=== PATIENT | male | born 1990 | race Caucasian/White ===

== ENCOUNTER 2018-07-23 00:16 | Emergency (ER) | payer SELFPAY ==
[2018-07-23 00:19] VITALS: BP 136/90; PULSE 78; RESP 16; TEMP 37.5; O2SAT 97; BMI 31.1
--- NOTE | 2018-07-23 00:50 | NURSING ---
PATIENT REFUSED IV INSERTION D/T PREVIOUS INFILTRATION.
[2018-07-23 00:53] LABS: Absolute Lymphocyte Count 2.84 X10^3/ul (0.83-4.51); Basophil# 0.03 X10^3/uL; Basophil% 0.3 % (0-1); Eosinophil# 0.19 X10^3/uL; Eosinophils% 1.9 % (0-5); Hematocrit 43.1 % (40-54); Hemoglobin 15.2 g/dl (13.0-16.5); Lymphocyte # 2.84 X10^3/ul (4.0); Lymphocyte % 28.2 % (19-41); Mean Corp Hgb Conc 35.3 g/gl (32-36); Mean Corpuscular Hgb 31.1 pg (27.0-32.0); Mean Corpuscular Volume 88.1 fL (80-94); Mean Platelet Vol. 10.6 fl (6.2-12.0); Monocyte# 1.03 X10^3/uL; Monocyte% 10.2 % (0-10); Neutrophil # 5.95 X10^3/uL (2.7-7.7); Neutrophil % 59.2 % (47-70); Platelet Count 198 K/mm3 (150-450); RBC Distribution Width CV 13.3 % (11.6-14.6); RBC Distribution Width SD 42.9 fl (35.1-43.9); Red Blood Count 4.89 M/mm3 (4.6-6.2); White Blood Count 10.1 K/mm3 (4.4-11.0)
[2018-07-23 00:54] LABS: POSITIVE COUNT NO; POSITIVE DIFFERENTIAL NO; POSITIVE MORPHOLOGY NO
[2018-07-23] MEDS: Dicyclomine 20 MG/2 ML Vial IM (00:55)
[2018-07-23] MEDS: Ondansetron 8 MG Tablet 4 MG PO (00:55)
[2018-07-23 01:14] LABS: ALB/GLOB Ratio 0.9 RATIO (0.9-2.4); AST(SGOT) 13 U/L (15-37); Alanine Aminotransfer ALT/SGPT 23 U/L (16-61); Albumin, Serum 3.7 g/dL (3.2-5.0); Alkaline Phosphatase 55 U/L (45-117); Anion Gap 8 (5-15); BUN 6 mg/dL (7-18); BUN/Creat Ratio 8.3 RATIO (10-20); Calcium,Total 8.6 mg/dL (8.5-10.1); Chloride 108 mmol/L (98-107); Creatinine, Serum 0.72 mg/dL (0.70-1.30); EST Glomerular Filtration Rate 137 mL/min (>60); Est Glom Filt Rate - Afr Amer 166 mL/min (>60); Estimated Creatinine Clearance 142.81 ml/min; Glucose 97 mg/dL (74-106); Lipase 155 U/L (73-393); Potassium 3.2 mmol/L (3.5-5.1); Protein, Total 7.7 g/dL (6.4-8.2); Sodium Level 141 mmol/L (136-145)
--- NOTE | 2018-07-23 01:22 | ED.VISSUMM ---
- ER Visit Summary Date of Service: 07/23/18 Chief Complaint: [Abdominal pain, vomiting, and diarrhea] History of Present Illness: The patient is a 28 M [presents the emergency department with a week and a half history of vomiting, diarrhea, abdominal pain. Patient denies any fevers. Patient denies any sick contacts. Patient states that he has been thrown up about 4 times a day and having 2-3 watery stools. Patient denies any blood in his stool or vomitus. Patient denies recent travel or antibiotic usage.] Physical Examination: [HEENT-PERRLA, EOMI. Cranial nerves II through XII grossly intact. TMs clear. Mucous membranes moist. No adenopathy. Cardiovascular-regular rate and rhythm without murmur or ectopy Lungs-clear to auscultation, chest wall stable without crepitus or subcu emphysema Abdomen-hyperactive bowel sounds. Patient has some mild diffuse tenderness. There is no rebound, rigidity, or perineal signs. Extremities-intact ?4, normal range of motion, normal pulses, atraumatic] Test Results: [CBC with differential obtained showed a white blood cell count of 10.1, hemoglobin 15, hematocrit 43, platelets 198. Chemistry showed a sodium 141, potassium 3.2, chloride 108, CO2 25, BUN 6, creatinine 0.72. LFTs were normal. Lipase was 155.] Emergency Department Course and Treatment: [Patient refused IV fluids. Patient was given potassium chloride 40 mEq p.o. Patient was given Zofran 4 mg and Bentyl 20 mg.] Treatment Plan: [Patient will be given a prescription for Zofran and Bentyl. Patient advised to follow-up with primary care physician 5-7 days.] Disposition: [Discharged home in stable condition] Impression: [Viral gastroenteritis] This note was generated with [employer] dictation software. It may contain incorrect words, spelling, and punctuation that were not noted in review of the chart prior to signing ED Disposition - Plan for ED Patient: Chief Complaint: Abd Pain Referrals: Robert Steinberg III, MD [Primary Care Provider] -
--- NOTE | 2018-07-23 01:24 | ED.DEP ---
ED Disposition - Plan for ED Patient: Chief Complaint: Abd Pain Instructions: ED Gastroenteritis Viral Prescriptions: Ondansetron [Zofran Odt] 4 mg PO Q8H PRN PRN #10 tab PRN Reason: Nausea Dicyclomine HCl [Bentyl] 20 mg PO TIDAC #20 cap Referrals: Robert Steinberg III, MD [Primary Care Provider] - 5-7 Days
[2018-07-23 01:42] VITALS: BP 145/96; PULSE 78; RESP 15; O2SAT 98
== END 2018-07-23 01:42 | disposition home or self-care (01) ==
LOC: ED 00:53
PROVIDERS: Emergency Provider Emergency Medicine; Family Provider Family Medicine; PCP Family Medicine
DX: A08.4 Viral intestinal infection, unspecified (principal); Z72.0 Tobacco use
CPT/HCPCS: 80053; 83690; 85025; 96372; 99284

== ENCOUNTER 2018-08-19 14:48 | Emergency (ER) | payer MEDICAID, SELFPAY ==
[2018-08-19 14:49] VITALS: BP 134/73; PULSE 95; RESP 18; TEMP 36.6; O2SAT 98; BMI 31.5
--- NOTE | 2018-08-19 16:19 | ED.VISSUMM ---
- ER Visit Summary Date of Service: 08/19/18 Chief Complaint: Abscess on tailbone History of Present Illness: The patient is a 28 M who presents for complaint of abscess on his tailbone for 2 days. Patient states he has had so much pain he cannot sleep well, lay down, and it hurts when he walks. He denies fever or any other constitutional symptoms. He denies any prior history of an abscess in this area or any other abscesses. He is tried Tylenol and warm compresses without relief. He denies any medical problems. Physical Examination: Vital signs: afebrile, hemodynamically stable, no hypoxia on room air General: well nourished, well developed, in no distress, groggy Skin: warm, dry, no rash, no pallor Respiratory: No increased work of breathing Abdominal: Abdomen is soft, nontender with normoactive bowel sounds, no guarding or rebound, no masses, 2 cm erythematous indurated area with 2 central pustules left lateral of the superior gluteal fold. No swelling or abscess noted at the area of a pilonidal cyst. No vesicles noted. Surrounding skin tender but no fluctuance or induration noted other than the focal 2 cm area. MSK: Moves all extremities, no deformities, normal strength Neuro: Awake and alert, oriented ?4. No facial droop, sensation and motor function intact and symmetric Test Results: [] Emergency Department Course and Treatment: Patient's level of pain seems out of proportion to the size of the small area of cellulitis/possible abscess. Because of the location, it may be a lateralized pilonidal cyst. The area was cleansed with Shur-Clens, and a field block was performed with 1% lidocaine. After achieving good anesthesia, a stab incision was made in the pustule without return of pus. This is not a pilonidal cyst but a small area of cellulitis. Patient continued to complain of severe pain in the area, again that seemed out of proportion to the lesion. The area all around the lesion was soft and nontender, thus there was no evidence of a deep tracking into the deeper tissues. Patient was prescribed antibiotics and is to use [id number] pain medications as needed. He was given an IM injection of Toradol prior to discharge. Discharge home. Treatment Plan: [] Disposition: [] Impression: Skin cellulitis of left upper buttock This note was generated with [employer] dictation software. It may contain incorrect words, spelling, and punctuation that were not noted in review of the chart prior to signing ED Disposition - Plan for ED Patient: Disposition: Home or Assisted Living Chief Complaint: Abscess Instructions: ED Infec Skin Cellulitis Prescriptions: Clindamycin [Cleocin] 300 mg PO TID 7 Days #42 cap Referrals: Robert Steinberg III, MD [Primary Care Provider] - 3-5 Days if not improving Additional Instructions: Take the antibiotic as prescribed for the entire 7 days even if you feel better before the antibiotic is finished. You may use [id number] pain medication of your choice as needed for pain. If you have any worsening of your condition or any new concerning symptoms, please return immediately to the emergency department for another evaluation.
--- NOTE | 2018-08-19 17:06 | ED.DEP ---
ED Disposition - Plan for ED Patient: Disposition: Home or Assisted Living Chief Complaint: Abscess Instructions: ED Infec Skin Cellulitis Prescriptions: Clindamycin [Cleocin] 300 mg PO TID 7 Days #42 cap Referrals: Robert Steinberg III, MD [Primary Care Provider] - 3-5 Days if not improving Additional Instructions: Take the antibiotic as prescribed for the entire 7 days even if you feel better before the antibiotic is finished. You may use [id number] pain medication of your choice as needed for pain. If you have any worsening of your condition or any new concerning symptoms, please return immediately to the emergency department for another evaluation.
[2018-08-19] MEDS: Ketorolac 30 MG/ML Syringe IM (17:17)
--- NOTE | 2018-08-19 17:20 | ED.RN ---
pt states he was upset that we didn't treat his pain appropriately. attempted to communicate with pt about dissatisfaction, pt states this hospital is a fucking joke and i will never come here again
== END 2018-08-19 18:13 | disposition home or self-care (01) ==
PROVIDERS: Emergency Provider Emergency Medicine; Family Provider Family Medicine; PCP Family Medicine
DX: L03.317 Cellulitis of buttock (principal); B96.89 Other specified bacterial agents as the cause of diseases classified elsewhere
CPT/HCPCS: 10060; 96372; 99282

== ENCOUNTER 2018-09-10 10:41 | Emergency (ER) | payer MEDICAID, SELFPAY ==
[2018-09-10 10:42] VITALS: BP 164/86; PULSE 103; RESP 18; TEMP 36.9; O2SAT 98; BMI 30.1
--- NOTE | 2018-09-10 11:59 | ED.DCSUM_ITS ---
- ER Visit Summary Date of Service: 09/10/18 Chief Complaint: Left axillary abscess History of Present Illness: The patient is a 28 M who states for the past week has had a lump in his left axilla. It has become increasingly painful. He has a history of abscesses but never one in his axilla. He notes painful range of motion at the shoulder joint. No fevers. Physical Examination: Afebrile vital signs stable There is a left axillary abscess without significant erythema. Bedside ultrasound demonstrates fluid collection. Emergency Department Course and Treatment: Wound was locally anesthetized using 1% lidocaine. A cross incision was made with expression of pus. Wound was probed for loculations and iodoform packing placed. Patient will need to follow-up in 3 days for packing removal. Patient requested a work note and I told him I would write one he also requested some pain medication I wrote for ibuprofen. He informed staff that I can shove it up my ass. He also stated that the hospital should burn to the ground. Impression: 1. Left axillary abscess 2. Incision and drainage by physician This note was generated with [employer] dictation software. It may contain incorrect words, spelling, and punctuation that were not noted in review of the chart prior to signing ED Disposition - Plan for ED Patient: Disposition: Home or Assisted Living Chief Complaint: Abscess Instructions: ED Abscess IandD Prescriptions: Ibuprofen [Motrin] 800 mg PO TID PRN PRN #20 tab PRN Reason: Pain Referrals: Robert Steinberg III, MD [STAFF PHYSICIAN] - (IN 3 DAYS FOR PACKING REMOVAL)
--- NOTE | 2018-09-10 12:50 | ED.RN ---
pt very agitated to not get stronger meds than motrin. spoke with Dr. Oates. wrote work note for pt. stated I hope this whole hospital vu down. did not allow RN to dress wound.
== END 2018-09-10 12:54 | disposition home or self-care (01) ==
LOC: ED 12:07
PROVIDERS: Emergency Provider Emergency Medicine; Family Provider Family Medicine; PCP Family Medicine
DX: L02.412 Cutaneous abscess of left axilla (principal); Z87.2 Personal history of diseases of the skin and subcutaneous tissue; Z72.0 Tobacco use
CPT/HCPCS: 10061; 10060; 99282

== ENCOUNTER 2018-10-28 00:18 | Emergency (ER) | payer MEDICAID, SELFPAY ==
[2018-10-28 00:19] VITALS: BP 164/96; PULSE 115; RESP 17; TEMP 36.6; O2SAT 99; BMI 32.1
--- NOTE | 2018-10-28 00:47 | ED.DCSUM_ITS ---
- ER Visit Summary Date of Service: 10/28/18 Chief Complaint: Wound on right hand History of Present Illness: The patient is a 28 M who presents with a wound on his right hand. He noticed about 1 week ago. He has a red raised area over his right hand on the back on the ulnar side. He states that he has been squeezing it and has had some drainage. He denies history of prior similar symptoms but notes he also has a similar area on the back of his neck. No fevers nausea vomiting. Physical Examination: Afebrile heart rate 115 vitals otherwise normal Patient has a ulcerated wound of the dorsum of the right hand on the ulnar side with 2 cm of surrounding erythema consistent with cellulitis. He has active full range of motion brisk capillary refill normal sensation light touch Patient has some folliculitis along the back of the neck Test Results: Not indicated Emergency Department Course and Treatment: I suspect that this was an abscess on his right hand which has already drained there is no fluctuance currently he does have a small open ulcerated wound I suspect this is Staphylococcus. He will be treated with Keflex and Bactrim. He understands to return for new or worsening symptoms and was discharged home. Treatment Plan: [] Disposition: Discharge Impression: Right hand cellulitis This note was generated with [employer] dictation software. It may contain incorrect words, spelling, and punctuation that were not noted in review of the chart prior to signing ED Disposition - Plan for ED Patient: Chief Complaint: Abscess Referrals: Evangelista Carlton MD [Primary Care Provider] -
--- NOTE | 2018-10-28 00:47 | ED.DEP ---
ED Disposition - Plan for ED Patient: Chief Complaint: Abscess Instructions: ED Infec Skin Cellulitis Prescriptions: Cephalexin [Keflex] 500 mg PO Q6 #40 cap Smz/Tmp Ds [Bactrim Ds] 1 tab PO BID #14 tab Referrals: Evangelista Carlton MD [Primary Care Provider] -
[2018-10-28] MEDS: Smz/Tmp Ds Tablet 1 TABLET PO (00:59)
[2018-10-28] MEDS: Cephalexin 250 MG Capsule 500 MG PO (00:59)
[2018-10-28 01:01] VITALS: PULSE 98; RESP 16; O2SAT 97
--- OUTSIDE RECORDS SUMMARY | 2018-12-23 10:44 | XMS RPT_ITS ---
:1990 Author Organization [place] Support Name Relationship Address Phone VASILIY CORADO Unavailable [address] + [address] [place] [address] CAT Unavailable [address] + [place] [address] VASILIY CORADO Unavailable [address] + [address] [place] [address] CAT Unavailable [address] + [place] [address] VASILIY CORADO Unavailable [address] + [address] [place] [address] CAT Unavailable [address] + [place] [address] VASILIY CORADO Unavailable [address] + [address] [place] [address] CAT Unavailable [address] + [place] [address] ARTIFLEX Unavailable [address] + [address] [place] [address] CORINNA SALINAS Unavailable [address] + [place] [address] ART[employer] Unavailable [address] + [address] [place] [address] CORINNA SALINAS Unavailable [address] + [place] [address] MYRON CORADO Unavailable [address] + [place] [address] MYRON CORADO Unavailable [address] [place] [address] NOT GIVEN Unavailable Unavailable Unavailable CORINNA SALINAS Unavailable [address] + [place] [address] CLAUDIA Unavailable [address] + [place] [address] MYRON CORADO Unavailable [address] + [place] [address] MYRON CORADO Unavailable [address] [place] [address] NOT GIVEN Unavailable Unavailable Unavailable KAHRIG CORINNA Unavailable [address] + [place] [address] CLAUDIA Unavailable [address] + [place] [address] MCDON03 Unavailable [address] + [place] [address] JADYN MILLAN Unavailable Unavailable + Care Team Providers Name Role Phone Hugh Knapp Attending Unavailable Cebul III, Yashira Primary Care Unavailable Cebul III, Yashira Primary Care Unavailable Niyah English Attending Unavailable Germain Oates Attending Unavailable Elderbrock, Evangelista Primary Care Unavailable Elderbrock, Evangelista Primary Care Unavailable Talha Zuñiga Attending Unavailable Sementi, Zeinab Admitting Unavailable Sementi, Zeinab Referring Unavailable Elderbrock, Evangelista Primary Care Unavailable Paintsil, Richland Attending Unavailable Sementi, Zeinab Admitting Unavailable JOSR BrownC Attending Unavailable Sementi, Zeinab Referring Unavailable Elderbrock, Evangelista Primary Care Unavailable Sementi, Zeinab Consulting Unavailable Sementi, Zeinab Admitting Unavailable ERIN Brown Attending Unavailable Sementi, Zeinab Referring Unavailable Elderbrock, Evangelista Primary Care Unavailable Paintsil, [place] Consulting Unavailable Sementi, Zeinab Admitting Unavailable ERIN Brown Attending Unavailable Sementi, Zeinab Referring Unavailable Elderbrock, Evangelista Primary Care Unavailable Paintsil, [place] Consulting Unavailable MAIN GUZMAN (REEL WINDER) Attending Unavailable MAIN GUZMAN (REEL WINDER) Referring Unavailable MAIN GUMZAN (REEL WINDER) Attending Unavailable OBDULIA BAKER DO Admitting Unavailable OBDULIA BAKER DO Attending Unavailable OBDULIA BAKER DO Primary Care Unavailable CEBUL, YASHIRA III Consulting Unavailable CEBUL, YASHIRA III Referring Unavailable PROVIDER, UNKNOWN Consulting Unavailable DAVID, DR PERCY Hawthorne Admitting Unavailable DAVID, DR EPRCY Hawthorne Attending Unavailable CEBUL, YASHIRA III Referring Unavailable DAVID, DR PERCY Hawthorne Primary Care Unavailable CEBUL, YASHIRA III Consulting Unavailable PROVIDER, UNKNOWN Consulting Unavailable MERLIN BRANDT, DR. CARR Primary Care Unavailable GATO MCLEOD, PERCY Justice Attending Unavailable MERLIN BRANDT, DR. CARR Referring Unavailable Stk Cnty, [facility] Attending Unavailable PROBLEMS PROBLEMS DATE TYPE CONDITION / ATTENDING STATUS SOURCE CODE 09/08/2018 Active Unknown / MAIN GUZMAN Active [facility] UNK(Unknown) (REEL WINDER) [facility] [place] [facility]ository 03/30/2018 Admitting Unknown / Stk Cnty, Active [facility] diagnosis UNK(Unknown) [facility] PROCEDURES PROCEDURES No Procedure Records FoundRESULTS RESULTS DISCHARGE SUMMARY Observed: 11/11/2018 Status: F Source: [place] 3:27 PM [facility] [place] [facility] Medical Records Department [address] [place] [address] Discharge Summary 11/11/18 1511 MR#: [id number] Acct: [id number] Name: VIGNESH SALINAS Rep #: [id number] : 1990 28 From: Sada OVALLESC PCP: Evangelista Carlton MD Status: DIS IN Y [place] [facility] [place] [id number] <Sada Webb - Last Filed: 11/11/18 15:19> Discharge Date and Diagnosis Date of Admission: 11/09/18 Date of Discharge: 11/11/18 - Primary Discharge Diagnosis 1. Acute opioid withdrawal, polysubstance abuse 2. Right hand cellulitis 3. Tobacco dependence 4. History of AK, related to cocaine use 5. History of CVA, per patient report 6. History of hepatitis C - Secondary Discharge Diagnosis Chronic Problems Hepatitis C (Chronic) Tobacco dependence (Chronic) Opiate dependence (Chronic) Hospital Course and Treatment Operations: None Procedures: None Summary of Care Provided: The patient is a 28 year old M admitted 11/09/2018 due to opioid withdrawal. 1. Acute opioid withdrawal, polysubstance abuse-Urine tox screen positive for opiates, amphetamines, methamphetamine. Medical stabilization per protocol although patient did not complete full program. Patient was suspected to switch clothing with twin sibling to go outside and smoke per RN which patient denies. Patient then noted to be verbally abusive to his significant other, following her into the elevator and leaving the floor which is against [facility] code of conduct. Patient discharged AGAINST MEDICAL ADVICE. 2. Right hand cellulitis-Bactrim and Keflex. Patient was recently prescribed these and did not take them. 3. Tobacco dependence-encourage smoking cessation. 4. History of AK, related to cocaine use-EKG without acute changes. 5. History of CVA, per patient report-chronic minimal left- sided weakness. 6. History of hepatitis C General: Alert, Oriented x3, Cooperative HEENT: Atraumatic, PERRLA, EOMI, Normocephalic Neck: Supple, No JVD, Negative Carotid Bruits Lungs: Clear to auscultation, Normal air movement Cardiovascular: Regular rate, Regular Rhythm, Normal S1, Normal S2, No murmurs Abdomen: Bowel Sounds Present, Soft, Non Tender, Non-Distended Extremities: No clubbing, No cyanosis, No edema, Capillary Refill Less than 3 Seconds Skin: - - Right hand ulnar side healing ulceration, medial back of neck healing ulcerations, left face open ulceration. Musculoskeletal: No Tenderness to Palpation of Joints or Extremities Neurological: Cranial nerves II-XII grossly intact, Neuro grossly intact Psych/Mental Status: Agitated, Anxious, Restless Patient seen and examined prior to discharge. Physical assessment as noted above. Patient signed out AMA due to non-compliance with new vision and facility policies. This patient was seen by ERIN Brown under the supervision of Dr. Cottrell. - Physical Exam Vital Signs Temp Pulse Resp BP Pulse Ox 97.7 F L 71 16 105/67 100 11/11/18 09:05 11/11/18 09:05 11/11/18 09:05 11/11/18 09:05 11/10/18 14:00 Oxygen Delivery Method Room Air Weight: 179 lb 10.828 oz Body Mass Index (BMI) 28.1 Intake and Output for Last 24 Hours Intake Total 1000 / 1000 Balance 1000 / 1000 Discharge Activity: Return to Normal Activity Home Medications: Medications to take at Discharge Cephalexin [Keflex] 500 mg PO Q6 #20 capsule 11/11/18 Smz/Tmp Ds [Bactrim Ds] 1 tablet PO BIDCM #10 tablet 11/11/18 Following Prescrptions Were Given to Patient: Cephalexin [Keflex] 500 mg PO Q6 #20 capsule Smz/Tmp Ds [Bactrim Ds] 1 tablet PO BIDCM #10 tablet Primary Care Physician: Evangelista Carlton MD [Primary Care Provider] - Disposition: Against Medical Advice Minutes spent on discharge:: 35 Patient Condition:: Stable Medical Necessity - Tobacco Use Smoking Status: Current every day smoker Tobacco Use: Cigarettes Meaningful Use Info Meaningful Use Diagnoses (Choose all that apply): None applicable <Paintsil,Richland - Last Filed: 11/11/18 15:27> Discharge Date and Diagnosis - Secondary Discharge Diagnosis Chronic Problems Hepatitis C (Chronic) Tobacco dependence (Chronic) Opiate dependence (Chronic) Hospital Course and Treatment None Summary of Care Provided: The patient is a 28 year old M past medical history of polysubstance abuse comes in with symptoms suggestive of opioid withdrawal for medical stabilization. Patient did not complete the full program. He was noncompliant with instructions on the floor. It was suspected to have sleep including 20 sibling to go outside and smoke. Refused nicotine replacement under fluoroscopy. Patient was reportedly verbally abusive to his significant other and left the floor AGAINST MEDICAL ADVICE. He will need to complete his Bactrim and Keflex. Subjective: Patient has been verbally abusive. He did not comply with instructions on the floor. Signed out AGAINST MEDICAL ADVICE. - Physical Exam General: Alert, Oriented x3, Cooperative, No apparent distress HEENT: Atraumatic, PERRLA, EOMI, Normocephalic Oral: Moist Mucosa Neck: Supple, No JVD, Negative Carotid Bruits Lungs: Clear to auscultation, Normal air movement Cardiovascular: Regular rate, Regular Rhythm, Normal S1, Normal S2, No murmurs Abdomen: Bowel Sounds Present, Soft, Non Tender, Non-Distended, No Hepato-splenomegaly Extremities: No edema, - - Erythema of the hand is much improved Skin: No rashes, No breakdown Musculoskeletal: No Tenderness to Palpation of Joints or Extremities Lymphatic: No Cervical, Supraclavicular, or Inguinal Adenopathy Neurological: Cranial nerves II-XII grossly intact Psych/Mental Status: Normal Affect, Appropriate Vital Signs Temp Pulse Resp BP Pulse Ox 97.7 F L 71 16 105/67 100 11/11/18 09:05 11/11/18 09:05 11/11/18 09:05 11/11/18 09:05 11/10/18 14:00 Oxygen Delivery Method Room Air Weight: 81.5 kg Body Mass Index (BMI) 28.1 Intake and Output for Last 24 Hours Intake Total 1000 / 1000 Balance 1000 / 1000 Code Visit Inpatient E AND M: [id number] Disch Hosp 11/11/18 1519 <Electronically signed by Sada OVALLESC> Date Sada OVALLESC 11/11/18 1527<Electronically signed by Deedee Cottrell MD> Cosigner Signature (if applicable): Date Deedee Cottrell MD CC: ERIN Webb; Deedee Cottrell MD; Evangelista Carlton MD Signed DISCHARGE INSTRUCTION Observed: 11/11/2018 Status: F Source: [place] 11:43 [facility] [place] [facility] Medical Records Department [address] [place] [id number] Instructions for Home/Discharge Instructions 11/11/18 1140 MR#: [id number] Acct: [id number] Name: VIGNESH SALINAS Rep #: [id number] : 1990 28 From: Sada KHAN PCP: Evangelista Carlton MD Status: ADM IN - Discharge Diagnoses Current Active Problems: Current Active and Chronic Problems Hepatitis C (Chronic) Tobacco dependence (Chronic) Acute opioid withdrawal, polysubstance abuse Right hand cellulitis History of myocardial infarction You will use the following diet at home:: No restrictions Discharge Activity: Return to Normal Activity Allergies/Adverse Reactions: Allergies naproxen [From Naprosyn] Adverse Reaction (Verified 10/28/18 00:23) Nausea Penicillins Adverse Reaction (Verified 10/28/18 00:23) Nausea Medications to take at Discharge Cephalexin [Keflex] 500 mg PO Q6 #20 capsule 11/11/18 Smz/Tmp Ds [Bactrim Ds] 1 tablet PO BIDCM #10 tablet 11/11/18 The following prescriptions were given: Cephalexin [Keflex] 500 mg PO Q6 #20 capsule Smz/Tmp Ds [Bactrim Ds] 1 tablet PO BIDCM #10 tablet Primary Care Physician: Evangelista Carlton MD [Primary Care Provider] - Please follow up with your Primary Care Physician in: 1 Week Test Results: Test results from this visit will be discussed in further detail at your follow-up appointment, if applicable. Please Follow Up With: [facility] When: Following discharge Proposed Discharge Date: 11/12/18 11/11/18 1143 <Electronically signed by Sada OVALLESC> Date Sada KHAN CC: Evangelista Carlton MD BASIC METABOLIC Collected: 11/10/2018 Status: F Source: [place] PROFILE (BMP) 8:32 AM [facility] [place] TYPE CODE TESTS RESULT OUT OF RANGE REFERENCE UNITS LAB L501.0100 74-106 mg/dL Normal GLU 97 Result Comment: Please note revised GLUCOSE reference range effective 2018. LAB L501.1000 7-18 mg/dL Normal BUN 7 LAB L501.1100 0.70-1.30 mg/dL Normal CREAT,SERUM 0.78 Result Comment: The validity of the calculated GFR AND GFRAA in patients over 70 years has not been determined. Clinical correlation is essential. LAB L501.1110 >60 mL/min Normal EST GFR 125 Result Comment: Non- GFR Calc LAB L501.1115 >60 mL/min Normal EST GFR - AA 152 Result Comment: GFR Calc LAB L501.1255 ml/min Normal Estimated CRCL 131.82 LAB L501.1300 10-20 RATIO Low BUN/CRE 9.0 LAB L501.2200 8.5-10 mg/dL .1 CA Normal 8.5 LAB L501.5300 136-14 mmol/L 5 NA Normal 141 LAB L501.5600 3.5-5. mmol/L 1 K Normal 4.0 LAB L501.5900 98-107 mmol/L CL Normal 106 LAB L501.6100 21.0-3 mmol/L 2.0 CO2 Normal 28.0 LAB L501.6200 5-15 GAP Normal 7 Performed By: #### L500.2500 #### [facility] [address] [place], [address] HISTORY AND PHYSICAL Observed: 11/09/2018 Status: F Source: [place] EXAM 9:49 PM [facility] [place] [facility] Medical Records Department [address] [place] [address] History and Physical 11/09/18 1624 MR#: [id number] Acct: [id number] Name: VIGNESH SALINAS Rep #: [id number] : 1990 28 From: Sada KHAN PCP: Evangelista Carlton MD Status: ADM IN Y Location: [place] [id number] ADDENDUM by Zeinab Freeman on 11/09/18 at 2149 Code Visit This patient was seen in conjunction with Sada Webb NP. I have independently interviewed and examined the patient and reviewed pertinent historical, laboratory and other data. Please refer to Lucio physical note for details of this patient's presentation, findings and recommendations. I have reviewed Sada's note and concur fully with documented findings. In brief, patient is a 28YO male who presented to the [facility] office at [facility] requesting inpatient admission for medical stabilization for opiate withdrawal. He uses 1-2 g of heroin daily. He last used at 11 AM on 11/08/2018. He complained of nausea, restlessness. He has a history of an AK in 2015 when he was using cocaine. Drug screen today is positive for opiates, amphetamines and methamphetamine. Denies chest pain or shortness of breath. Recently seen in the emergency room with cell but neglected to fruit picker the antibiotics prescribed to him. Physical examination: PHYSICAL EXAM: GENERAL: alert, oriented X 3, Cooperative, looks pretty rough NECK: No JVD, supple, trachea midline LUNGS: CTA, symmetric chest expansion HEART: RRR, Normal S1 and S2, no rub, no gallop ABDOMEN: soft, NT, ND, BS present, no guarding with palpation EXTREMITIES: no edema, no cyanosis, no calf tenderness SKIN: No rashes, no breakdown. On the ulnar side of the right hand he has a healing ulceration and also has a few ulcerations on the back of his neck and his left face. NEUROLOGIC: no focal neurologic deficits PSYCH: appropriate, normal affect, pleasant Assessment: 1. Acute opiate withdrawal 2. Heroin addiction 3. Methamphetamine use 4. History of an AK when doing cocaine in 2014 5. Hypokalemia 6. Tobacco dependence 7. Right hand cellulitis 8. Hepatitis C I have discussed my assessment with Sada and orders have been written. Inpatient E AND M: [id number] Init Hosp L2 11/09/18 2149 <Electronically signed by Glenn Freeman DO> Date Glenn Freeman DO cc: ERIN Webb; Zeinab Freeman; Evangelista Carlton MD * Signed Problem List (1) NSTEMI (non-ST elevated myocardial infarction) Status: Resolved (2) Opiate dependence Status: Chronic (3) Hepatitis C Status: Chronic (4) Tobacco dependence Status: Chronic History of Present Illness Date of Admission: 11/09/18 Chief Complaint: Opioid withdrawal. The patient is a 28 year old M who presents through [facility] program due to opioid withdrawal. He has a past medical history of hepatitis C, AK and CVA in 2014 while using cocaine, tobacco dependence, multi-substance abuse. Patient states he has been using opioids for the past 12 years. He has completed inpatient treatment 1 time before. He states he uses 1-2 g of heroin and methamphetamine as he is able. He smokes 1 pack/day. Denies alcohol use. His last opioid use was last evening around 6 PM. He currently complains of restlessness, anxiety, abdominal cramping, diarrhea. He denies chest pain, shortness of breath. Patient has multiple skin abrasions. He states he was recently seen in the ER 10/28/2018 due to right hand cellulitis with ulcerated wound. He was prescribed cephalexin and Bactrim which he forgot to fruit picker. He notes right outer hand continues to have some purulent drainage. Patient reports he wishes to attend 180 inpatient treatment facility at discharge. Past Medical History Past Medical History (Chronic Problems): Chronic Problems Hepatitis C (Chronic) Tobacco dependence (Chronic) Opiate dependence (Chronic) Allergies naproxen [From Naprosyn] Adverse Reaction (Verified 10/28/18 00:23) Nausea Penicillins Adverse Reaction (Verified 10/28/18 00:23) Nausea Home Medications: Ambulatory Orders Medication Instructions Recorded NK 11/09/18 Surgical History: no surgical history Psychiatric History: No pertinent psych hx Lives: Spouse/ Significant Other Smoking Status: Current every day smoker Tobacco Use: Cigarettes Alcohol: None Drugs: Heroin, - - Methamphetamine - *Family History Maternal History Items: - - Denies known maternal medical history including cardiac Paternal History Items: - - Multiple sclerosis Review of Systems Constitutional: Denies: Chills, Fever, Weight Change HEENT: Denies: Head Aches, Sinus Congestion, Sinus Drainage Cardiovascular: Denies: Chest Pain, Edema, Palpitations, Syncope Respiratory: Denies: Cough, Shortness of breath at rest, Sputum production Gastrointestinal: Reports: Diarrhea, - - Abdominal cramping. Denies: Abdominal Pain, Nausea, Vomiting Genitourinary: Denies: Dysuria Musculoskeletal: Denies: Joint Pain, Joint Tenderness Skin: Reports: Wounds - Right hand ulnar wound, healing ulcerations back of neck and left side of face.. Denies: Rash Neurological: Denies: Numbness, Tingling, Focal weakness Psychiatric: Reports: Anxiety Hematologic/ Lymphatic: Denies: Easy Bruising, Easy Bleeding VTE Information - Inpt Only VTE Present on Admission: No VTE Mechan Device Prophylaxis: None VTE Pharm Prophylaxis ordered?: No - Physical Exam General: Alert, Oriented x3, Cooperative HEENT: Atraumatic, PERRLA, EOMI, Normocephalic Neck: Supple, No JVD, Negative Carotid Bruits Lungs: Clear to auscultation, Normal air movement Cardiovascular: Regular rate, Regular Rhythm, Normal S1, Normal S2, No murmurs Abdomen: Bowel Sounds Present, Soft, Non Tender, Non-Distended Extremities: No clubbing, No cyanosis, No edema, Capillary Refill Less than 3 Seconds Skin: - - Right hand ulnar side healing ulceration, medial back of neck healing ulcerations, left face open ulceration. Musculoskeletal: No Tenderness to Palpation of Joints or Extremities Neurological: Cranial nerves II-XII grossly intact, Neuro grossly intact Psych/Mental Status: Normal Affect, Appropriate Vital Signs Temp Pulse Resp BP Pulse Ox 97.8 F 92 16 125/84 H 98 11/09/18 16:00 11/09/18 16:00 11/09/18 16:00 11/09/18 16:00 11/09/18 16:02 Oxygen Delivery Method Room Air Weight: 179 lb 10.828 oz Body Mass Index (BMI) 28.1 Assessment/Plan All Active Problems NSTEMI (non-ST elevated myocardial infarction) (Resolved) 1. Acute opioid withdrawal, polysubstance abuse-medical stabilization per protocol. Obtain urine tox screen. CBC, BMP. Patient plans on inpatient treatment facility at discharge. 2. Right hand cellulitis-Bactrim and Keflex. Patient was recently prescribed these and did not take them. 3. Tobacco dependence-encourage smoking cessation. Nicotine replacement patch. 4. History of AK, related to cocaine use-obtain EKG. Patient denies chest pain. 5. History of CVA, per patient report-chronic minimal left- sided weakness. 6. History of hepatitis C DVT prophylaxis-not indicated, low risk This patient was seen by ERIN Brown under the supervision of Dr. Freeman. 11/09/18 1637 <Electronically signed by Sada KHAN> Date Sada KHAN 11/09/185<Electronically signed by Glenn Freeman DO> Cosigner Signature: Date (if applicable) Glenn Freeman DO CC: ERIN Webb; Zeinab Freeman; Evangelista Carlton MD Signed CBC W/DIFF, AUTOMATED Collected: 11/09/2018 Status: F Source: [place] 4:40 PM [facility] [place] TYPE CODE TESTS RESULT OUT OF RANGE REFERENCE UNITS LAB L100.1000 4.4-11.0 K/mm3 Normal WBC 4.6 LAB L100.1200 4.6-6.2 M/mm3 Normal RBC 4.78 LAB L100.1300 13.0-16.5 g/dl Normal HGB 14.6 LAB L100.1400 40-54 % Normal HCT 42.4 LAB L100.1500 80-94 fL Normal MCV 88.7 LAB L100.1600 27.0-32.0 pg Normal MCH 30.5 LAB L100.1700 32-36 g/gl Normal MCHC 34.4 LAB L100.1810 11.6-14.6 % Normal RDW CV 13.0 LAB L100.1820 35.1-43.9 fl Normal RDW SD 42.1 LAB L100.1900 150-450 K/mm3 Normal PLT 153 LAB L100.2000 6.2-12.0 fl Normal MPV 11.0 LAB L100.2100 47-70 % Normal NEUT% 57.6 LAB L100.2200 19-41 % Normal LY% 28.2 LAB L100.2300 0-10 % High MONO% 12.7 LAB L100.2400 0-5 % Normal EO% 0.9 LAB L100.2500 0-1 % Normal BASO% 0.4 LAB L100.2550 0.0-0.9 % Normal IM GRAN % 0.200 Result Comment: IG% - Immature Granulocytes (promyelocytes, myelocytes and metamyelocytes) > 1% indicates that a LEFT SHIFT is Present. LAB L100.2620 2.0-7.7 X10 3/uL Normal Absolute Neut 2.6 LAB L100.2720 0.83-4.51 X10 3/ul Normal Absolute Lymph 1.29 Performed By: #### L100.0100 #### [facility] [address] [place], [address] ALCOHOL, BLOOD Collected: 11/09/2018 Status: F Source: [place] ([facility]SERUM 4:40 PM [facility] [place] TYPE CODE TESTS RESULT OUT OF RANGE REFERENCE UNITS LAB L501.9100 mg/dL Normal SERUM 9.0 ETOH Result Comment: The serum:whole blood ethanol ratio is approximately 1.14 and varies slightly with hematocrit. Medical Alcohol reference interval and critical value in non-tolerant individuals; 50 - 100 Impairment 100 Intoxication 100 - 250 Severe Poisoning 250 - 400 Deep/possible fatal coma Performed By: #### L501.9100 #### [facility] [address] [place], [place], [id number] COMPREHENSIVE METABOLIC Collected: 11/09/2018 Status: F Source: [place] 4:40 PM [facility] [place] TYPE CODE TESTS RESULT OUT OF RANGE REFERENCE UNITS LAB L501.0100 74-106 mg/dL High GLU 118 Result Comment: Fasting Glucose result from 100 to 125 mg/dL suggests IMPAIRED HOMEOSTASIS per A.D.A. criteria. Please note revised GLUCOSE reference range effective 2018. LAB L501.1000 7-18 mg/dL Normal BUN 7 LAB L501.1100 0.70-1.30 mg/dL Normal CREAT,SERUM 0.91 Result Comment: The validity of the calculated GFR AND GFRAA in patients over 70 years has not been determined. Clinical correlation is essential. LAB L501.1110 >60 mL/min Normal EST GFR 104 Result Comment: Non- GFR Calc LAB L501.1115 >60 mL/min Normal EST GFR - AA 126 Result Comment: GFR Calc LAB L501.1255 ml/min Normal Estimated CRCL 112.99 LAB L501.1300 10-20 RATIO Low BUN/CRE 7.7 LAB L501.1500 6.4-8. g/dL 2 T PROT Normal 7.6 LAB L501.1800 3.2-5. g/dL 0 ALB Normal 3.7 LAB L501.1950 2.2-4. g/dL 2 GLOB Normal 3.9 LAB L501.2000 0.9-2. RATIO 4 A/G Normal 0.9 LAB L501.2200 8.5-10 mg/dL .1 CA Normal 8.8 LAB L501.4100 15-37 U/L AST Normal 22 LAB L501.4305 45-117 U/L ALK P Normal 57 LAB L501.4405 16-61 U/L ALT Normal 38 LAB L501.4600 0.20-1 mg/dL .00 T BILI Normal 0.40 LAB L501.5300 136-14 mmol/L 5 NA Normal 137 LAB L501.5600 3.5-5. mmol/L Low 1 K 3.2 LAB L501.5900 98-107 mmol/L CL Normal 105 LAB L501.6100 21.0-3 mmol/L 2.0 CO2 Normal 26.0 LAB L501.6200 5-15 GAP Normal 6 Performed By: #### L500.4050 #### [facility] [address] [place], [address] URINE DRUG SCREEN Collected: 11/09/2018 Status: F Source: [place] (VISTA) 4:25 PM [facility] [place] TYPE CODE TESTS RESULT OUT OF RANGE REFERENCE UNITS LAB L505.0075 TO BE Normal CONFIRMED Result Comment: CONFIRMATORY TESTING FOR ALL POSITIVE URINE DRUG SCREEN RESULTS WILL ONLY BE SENT OUT UPON PHYSICIAN ORDER. VISTA Urine Drug Screen methods provide only preliminary analytical test results. A more specific alternate chemical method must be used in order to obtain a confirmed analytical result. Gas chromatography/mass spectrometery (GC/MS) is the preferred confirmatory method. Clinical consideration and professional judgement should be applied to any drug of abuse test result, particularly when preliminary positive results are used. URINE TCA TESTING MUST BE ORDERED SEPARATELY. USE TEST MNEMONIC: [facility] LAB L505.5005 VISTA UDS PH 5 Normal LAB L505.5015 <1000 High ng/mL AMPHETAMINES POSITIVE LAB L505.5025 < 200 ng/mL BARBITIURATES Normal NEGATIVE LAB L505.5035 < 200 ng/mL BENZODIAZIPINE Normal NEGATIVE LAB L505.5045 < 300 ng/mL COCAINE Normal NEGATIVE LAB L505.5055 < 500 High ng/mL ECSTACY POSITIVE LAB L505.5065 < 300 ng/mL METHADONE Normal NEGATIVE LAB L505.5075 < 300 High ng/mL OPIATES POSITIVE LAB L505.5085 < 25 ng/mL PCP Normal NEGATIVE LAB L505.5095 < 50 ng/mL THC Normal NEGATIVE Performed By: #### L505.5000 #### [facility] [address] [place], [address] DISCHARGE INSTRUCTION Observed: 10/28/2018 Status: F Source: [place] 12:48 AM [facility] REPOSITORY [facility] Medical Records Department [address] [place] [address] Discharge Instruction 10/28/18 0047 MR#: [id number] Acct: [id number] Name: VIGNESH SALINAS Rep #: [id number] : 1990 From: Talha Zuñiga MD PCP: Evangelista Carlton MD Status: PRE ER ED Disposition - Plan for ED Patient: Chief Complaint: Abscess Instructions: ED Infec Skin Cellulitis Prescriptions: Cephalexin [Keflex] 500 mg PO Q6 #40 cap Smz/Tmp Ds [Bactrim Ds] 1 tab PO BID #14 tab Referrals: Evangelista Carlton MD [Primary Care Provider] - What to do if you have Problems For any increased pain, shortness of breath, bleeding, nausea or vomiting, chest pain, or any unexpected problems, contact your Primary Care Provider. Call [facility] ([phone]) or report to the closest Emergency Room. Call 911 if necessary. 10/28/188 <Electronically signed by Talha Zuñiga MD> Date Talha Zuñiga MD Cosigner Signature (If Indicated): Date CC: Evangelista Carlton MD EMERGENCY DEPARTMENT Observed: 10/28/2018 Status: F Source: [place] SUMMARY 12:47 AM [facility] Medical Records Department [address] [place] [address] Emergency Department Summary 10/28/18 0045 MR#: [id number] Acct: [id number] Name: VIGNESH SALINAS Rep #: [id number] : 1990 From: Talha Zuñiga MD PCP: Evangelista Carlton MD Status: PRE ER - ER Visit Summary Date of Service: 10/28/18 Chief Complaint: Wound on right hand History of Present Illness: The patient is a 28 M who presents with a wound on his right hand. He noticed about 1 week ago. He has a red raised area over his right hand on the back on the ulnar side. He states that he has been squeezing it and has had some drainage. He denies history of prior similar symptoms but notes he also has a similar area on the back of his neck. No fevers nausea vomiting. Physical Examination: Afebrile heart rate 115 vitals otherwise normal Patient has a ulcerated wound of the dorsum of the right hand on the ulnar side with 2 cm of surrounding erythema consistent with cellulitis. He has active full range of motion brisk capillary refill normal sensation light touch Patient has some folliculitis along the back of the neck Test Results: Not indicated Emergency Department Course and Treatment: I suspect that this was an abscess on his right hand which has already drained there is no fluctuance currently he does have a small open ulcerated wound I suspect this is Staphylococcus. He will be treated with Keflex and Bactrim. He understands to return for new or worsening symptoms and was discharged home. Treatment Plan: [] Disposition: Discharge Impression: Right hand cellulitis This note was generated with Spacenet dictation software. It may contain incorrect words, spelling, and punctuation that were not noted in review of the chart prior to signing ED Disposition - Plan for ED Patient: Chief Complaint: Abscess Referrals: Evangelista Carlton MD [Primary Care Provider] - What to do if you have Problems For any increased pain, shortness of breath, bleeding, nausea or vomiting, chest pain, or any unexpected problems, contact your Primary Care Provider. Call [facility] ([phone]) or report to the closest Emergency Room. Call 911 if necessary. 10/28/18 0047 <Electronically signed by Talha Zuñiga MD> Date Talha Zuñiga MD Cosigner Signature (If Indicated): Date CC: Evangelista Carlton MD EMERGENCY DEPARTMENT Observed: 09/14/2018 Status: F Source: [place] SUMMARY 8:08 AM [facility] [place] [facility] Medical Records Department [address] [place] [address] Emergency Department Summary 09/10/18 1157 MR#: [id number] Acct: [id number] Name: VIGNESH SALINAS Rep #: [id number] : 1990 28 From: Germain Oates DO PCP: Evangelista Carlton MD Status: DEP ER - ER Visit Summary Date of Service: 09/10/18 Chief Complaint: Left axillary abscess History of Present Illness: The patient is a 28 M who states for the past week has had a lump in his left axilla. It has become increasingly painful. He has a history of abscesses but never one in his axilla. He notes painful range of motion at the shoulder joint. No fevers. Physical Examination: Afebrile vital signs stable There is a left axillary abscess without significant erythema. Bedside ultrasound demonstrates fluid collection. Emergency Department Course and Treatment: Wound was locally anesthetized using 1% lidocaine. A cross incision was made with expression of pus. Wound was probed for loculations and iodoform packing placed. Patient will need to follow-up in 3 days for packing removal. Patient requested a work note and I told him I would write one he also requested some pain medication I wrote for ibuprofen. He informed staff that I can shove it up my ass. He also stated that the hospital should burn to the ground. Impression: 1. Left axillary abscess 2. Incision and drainage by physician This note was generated with Spacenet dictation software. It may contain incorrect words, spelling, and punctuation that were not noted in review of the chart prior to signing ED Disposition - Plan for ED Patient: Disposition: Home or Assisted Living Chief Complaint: Abscess Instructions: ED Abscess IandD Prescriptions: Ibuprofen [Motrin] 800 mg PO TID PRN PRN #20 tab PRN Reason: Pain Referrals: Yashira Steinberg III, MD [STAFF PHYSICIAN] - (IN 3 DAYS FOR PACKING REMOVAL) What to do if you have Problems For any increased pain, shortness of breath, bleeding, nausea or vomiting, chest pain, or any unexpected problems, contact your Primary Care Provider. Call [facility] ([phone]) or report to the closest Emergency Room. Call 911 if necessary. 09/14/18 0808 <Electronically signed by Germain Oates DO> Date Germain Kilpatrickne DO Cosigner Signature (If Indicated): Date CC: Evangelista Carlton MD PROGRESS Observed: 09/08/2018 Status: COMPLETED Source: [place] 3:31 PM [facility] [place] REPOSITORY O ID: [id number] Author: Main Kelly (Lili) Thomas Service: (none) Author Type: Nurse Practitioner Type: Progress Notes Filed: 09/08/2018 5:31 PM Note Text: Chief Complaint Patient presents with: Medication Follow-up: not helping - causing depression , diarrhea, worrying - would like to stop HPI Vignesh Salinas is a 28 year old male who presents here today for ADHD med follow up. Seen 2 weeks ago and started on Intuniv for sx of ADHD. Previous substance abuse, stimulant therapy avoided. He returns today stating first he feels like the medication is not working, and secondly having side effects which he states is being irritable and arguing with his fiance, feeling paranoid and overthinking things, when asked to explain he states thinking she's doing things that she really isn't states he is feeling depressed and frustrated that he hasn't been able to see his PCP, that he just wants to feel normal and why can't he be prescribed the same medication that he took before which was Adderall XR. When questioned further about his mood he admits to feeling depressed, kept focusing on resuming the same medication as before. States sidney told him he needed to see a Psychiatrist. Attempted to discuss mood with patient, he kept repeating, I just want to feel normal. Explained that best course of action would be to stop the Intuniv and let it wash out of his system before starting a new medication. Discussed with Dr. Gayle, and explained to patient that he would not be prescribed any stimulant medication from [facility] FM provider per Dr. Gayle. Patient replied, This is just a waste of my time and got up and left the exam room. States if I can't get any help here I will go somewhere else. 08/24/18; HPI Vignesh Salinas is a 28 year old male who presents here today for Above Complaints. Trouble with focus, concentrating, paying attention, difficulty holding down a job, tardiness. 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 Reports written warnings at work due to tardiness, difficulty keeping track of time when he goes on break or lunch. Easily gets distracted. 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 Previously on Ritalin, most recent was Adderall 20 mg XR last written in 2007. Freely discloses substance abuse with Opioids in the past, spent time in longterm, previously on Suboxone, 2 years clean, willingly offers to submit urine for drug screen. Denies any current medications, denies any illicit substance use. ? Past medical history, appointments, medications, allergies reviewed. Previous Medical History PAST MEDICAL HISTORY Diagnosis Date - Abdominal pain, unspecified site 10/01 10/01 EGD multiple studies all negative per Dr. Galindo - Attention deficit disorder without mention of hyperactivity stopped medication 2002 - Closed fracture of base of other metacarpal bone(s) 03/03 fx 5th - Drug abuse (HCC) - Hemarthrosis, other specified site 08/31 right knee hemarthrosis per [place] - Infectious mononucleosis with hepatitis and axillary lymph node enlargement - Major depressive disorder Previous Surgical History PAST SURGICAL HISTORY Procedure Laterality Date - LUMPECTOMY/RADIOTHERAPY DIAG MAMM/A10 : negative lymph node bx Family History FAMILY HISTORY Problem Relation Age of Onset - other (mutiple sclerosis [Other]) Father - Multiple Sclerosis Paternal Uncle - Cancer Maternal Grandmother - Cancer Paternal Grandmother Patient Allergies ALLERGIES Allergen Reactions - Ibuprofen GI Upset - Naproxen GI Upset - Penicillin G GI Upset Current Medications Current Outpatient Prescriptions on File Prior to Visit: guanFACINE (TENEX) 1 mg tablet Take 1 tablet by mouth once daily. No current facility-administered medications on file prior to visit. Social History Social History Marital status: Single Spouse name: Years of education: Number of children: Social History Main Topics Smoking status: Current Every Day Smoker Packs/day: 1.00 Years: 2.00 Types: Cigarettes Smokeless tobacco: Never Used Comment: smokes 1 pack daily Alcohol use: No Drug use: No Sexual activity: Yes control/protection: Condom EXAM: BP 130/80 Pulse 102 Wt 89.4 kg (197 lb) BMI 30.85 kg/m? General Appearance: Well appearing, alert, in no acute distress, well-hydrated, well nourished. and poor eye contact. Health Maintenance List ONE PNEUMOVAX PRIOR TO AGE 65 due on 2009 DTAP,TDAP,TD(8 - Tdap) due on 04/19/2018 INFLUENZA Completed ASSESSMENT/PLAN: 1. Adult ADHD - ICD9: 314.01, ICD10: F90.9 - As above, see HPI Patient left during encounter. Main Guzman, MSN PRODUCTION REPAIRER.ELECTRICAL POWER STATION TECHNICIAN CNOV Observed: 09/08/2018 Status: COMPLETED Source: [place] 3:20 PM [facility] REPOSITORY Office Visit (FAMPWS) VIGNESH SALINAS ([id number]) 1990 M IPA Date Time Provider Department 09/08/18 3:20 PM [facility] ([facility]) FAMPWS During your visit today, we recorded the following information about you: Pulse Blood pressure Weight 102/minute 130/80 89.4 kg Main Guzman, MSN PRODUCTION REPAIRER.ELECTRICAL POWER STATION TECHNICIAN 09/08/2018 5:31 PM Signed Chief Complaint Patient presents with: Medication Follow-up: not helping - causing depression , diarrhea, worrying - would like to stop HPI Vignesh Lyonssosa is a 28 year old male who presents here today for ADHD med follow up. Seen 2 weeks ago and started on Intuniv for sx of ADHD. Previous substance abuse, stimulant therapy avoided. He returns today stating first he feels like the medication is not working, and secondly having side effects which he states is being irritable and arguing with his fiance, feeling paranoid and overthinking things, when asked to explain he states thinking she's doing things that she really isn't states he is feeling depressed and frustrated that he hasn't been able to see his PCP, that he just wants to feel normal and why can't he be prescribed the same medication that he took before which was Adderall XR. When questioned further about his mood he admits to feeling depressed, kept focusing on resuming the same medication as before. States sidney told him he needed to see a Psychiatrist. Attempted to discuss mood with patient, he kept repeating, I just want to feel normal. Explained that best course of action would be to stop the Intuniv and let it wash out of his system before starting a new medication. Discussed with Dr. Gayle, and explained to patient that he would not be prescribed any stimulant medication from [facility] FM provider per Dr. Gayle. Patient replied, This is just a waste of my time and got up and left the exam room. States if I can't get any help here I will go somewhere else. 08/24/18; HPI Vignesh Salinas is a 28 year old male who presents here today for Above Complaints. Trouble with focus, concentrating, paying attention, difficulty holding down a job, tardiness. 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 Reports written warnings at work due to tardiness, difficulty keeping track of time when he goes on break or lunch. Easily gets distracted. 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 Previously on Ritalin, most recent was Adderall 20 mg XR last written in 2007. Freely discloses substance abuse with Opioids in the past, spent time in longterm, previously on Suboxone, 2 years clean, willingly offers to submit urine for drug screen. Denies any current medications, denies any illicit substance use. ? Past medical history, appointments, medications, allergies reviewed. Previous Medical History PAST MEDICAL HISTORY Diagnosis Date - Abdominal pain, unspecified site 10/01 10/01 EGD multiple studies all negative per Dr. Galindo - Attention deficit disorder without mention of hyperactivity stopped medication 2002 - Closed fracture of base of other metacarpal bone(s) 03/03 fx 5th - Drug abuse (HCC) - Hemarthrosis, other specified site 08/31 right knee hemarthrosis per [place] - Infectious mononucleosis with hepatitis and axillary lymph node enlargement - Major depressive disorder Previous Surgical History PAST SURGICAL HISTORY Procedure Laterality Date - LUMPECTOMY/RADIOTHERAPY DIAG MAMM/A10 12/99 : negative lymph node bx Family History FAMILY HISTORY Problem Relation Age of Onset - other (mutiple sclerosis [Other]) Father - Multiple Sclerosis Paternal Uncle - Cancer Maternal Grandmother - Cancer Paternal Grandmother Patient Allergies ALLERGIES Allergen Reactions - Ibuprofen GI Upset - Naproxen GI Upset - Penicillin G GI Upset Current Medications Current Outpatient Prescriptions on File Prior to Visit: guanFACINE (TENEX) 1 mg tablet Take 1 tablet by mouth once daily. No current facility-administered medications on file prior to visit. Social History Social History Marital status: Single Spouse name: Years of education: Number of children: Social History Main Topics Smoking status: Current Every Day Smoker Packs/day: 1.00 Years: 2.00 Types: Cigarettes Smokeless tobacco: Never Used Comment: smokes 1 pack daily Alcohol use: No Drug use: No Sexual activity: Yes control/protection: Condom EXAM: BP 130/80 Pulse 102 Wt 89.4 kg (197 lb) BMI 30.85 kg/m? General Appearance: Well appearing, alert, in no acute distress, well-hydrated, well nourished. and poor eye contact. Health Maintenance List ONE PNEUMOVAX PRIOR TO AGE 65 due on 2009 DTAP,TDAP,TD(8 - Tdap) due on 04/19/2018 INFLUENZA Completed ASSESSMENT/PLAN: 1. Adult ADHD - ICD9: 314.01, ICD10: F90.9 - As above, see HPI Patient left during encounter. Main Guzman, MSN PRODUCTION REPAIRER.ELECTRICAL POWER STATION TECHNICIAN Referring Provider: NO PCP [[id number]] Allergies As of Date: 09/08/2018 Noted Allergy Reaction IBUPROFEN 06/29/2009 8 - GI Upset NAPROXEN 10/18/2015 8 - GI Upset PENICILLIN G 09/26/2014 8 - GI Upset Date Reviewed: 09/08/2018 Reviewed by: [employer] - Fully Assessed Reason for Visit: Medication Follow-up [270] Cmt: not helping - causing depression , diarrhea, worrying - would like to stop Primary Visit Diagnosis:Adult ADHD [F90.9] Prescriptions as of 09/08/2018 Sig: GUANFACINE 1 MG TABLET Take 1 tablet by mouth once d* Problem List As Of Date 09/08/2018 Noted Resolved NO SHOW [] INVALID FOR* Backache, unspecified [M54.9] INVALID FOR* Priority: D Lumbago [M54.5] INVALID FOR*04/03/2012 Drug abuse [F19.10] Priority: B More... Pain in joint, shoulder region [M25.519] INVALID FOR* Priority: D Major depressive disorder (HCC) [F32.9] INVALID FOR* Priority: A More... Smoker [F17.200] INVALID FOR* Priority: C More... Opiate abuse, episodic [F11.10] INVALID FOR* Priority: B More... Encounter for screening for cardiovascular diso*INVALID FOR* Controlled substance agreement signed [Z79.899] INVALID FOR* Encounter Status:Closed by MAIN [facility] ELECTRICAL POWER STATION TECHNICIAN on 09/08/18 EMERGENCY REPORT Observed: 08/25/2018 Status: F Source: [place] 10:36 AM [facility] EMERGENCY ROOM REPORT NAME ACCOUNT SEX AGE ADMIT DISCHARGE PT MED. RECORD# NUMBER DATE DATE TYPE CARMEN, [id number] M 28 08/21/18 08/21/18 3 VIGNESH Casey [id number] ROOM: ER DATE OF : 1990 DICTATING PHYSICIAN: Percy Garcia HISTORY OF PRESENT ILLNESS: The patient came in. He said for the last 4 days he has been having pain in his upper gluteal area near the crease. He had some drainage, and it bled when his significant other tried to get something out of it. He says the pain is an 8/10. He was at work. He had so much pain he had to come home. PAST MEDICAL HISTORY: Denies. PAST SURGICAL HISTORY: Denies. SOCIAL HISTORY: He does smoke. He denies alcohol use. REVIEW OF SYSTEMS: Eight systems were reviewed and were negative except as mentioned above. PHYSICAL EXAMINATION: He is an awake, alert and oriented male in no acute distress. Head is normocephalic, atraumatic. Eyes: Pupils are equal, round and reactive to light. Extraocular muscles are intact. Nares are patent. Throat has adequate oral moisture. Uvula is midline. Neck is supple without petechiae or rash. Heart rate is regular without murmur. S1 is equal to S2. No S3 or S4 appreciated. Lungs are clear to auscultation bilaterally. No rales, rhonchi or retractions. Abdomen is soft, nontender and nondistended. Skin is warm and dry. His left gluteal area has some surrounding redness it looks like where it had been opened. EMERGENCY DEPARTMENT COURSE AND TREATMENT: I did offer to I&D it, which he accepted. The risks and benefits were explained. He was anesthetized with lidocaine, and an incision was made. A cross-incision was made. I did not really get out any purulent drainage. DIAGNOSIS: Abscess with drainage. PLAN/DISPOSITION: We will place him on Bactrim. He will be discharged in stable Page 1 of 2 CHARITOVIGNESH CASTELLANO A Emergency Room Report condition. He should follow up with Dr. Steinberg, his family doctor, in 3 to 4 days and return if any problems or concerns. Dictated By: Percy Garcia DO 08/21/18 14:26 JOB #: [id number] Transcribed By: brandon 08/21/18 15:29 Electronically signed by: ALEX Garcia D.O. 08/25/18 10:36 Page 2 of 2 VIGNESH SALINAS Casey Emergency Room Report TOXICOLOGY SCREEN,UR Collected: 08/24/2018 Status: F Source: [place] 4:10 PM [facility] REPOSITORY TYPE CODE TESTS RESULT OUT OF REFERENCE UNITS RANGE LAB UPCP2 Negative Negative Phencyclidin e, Urine Result Comment: Cutoff threshold at 25 ng/mL. LAB UBENZ2 Negative Benzodiazepines, Ur Negative Result Comment: Cutoff threshold at 200 ng/mL. LAB UCOC2 Negative Cocaine, Negative Urine Result Comment: Cutoff threshold at 300 ng/mL. LAB UAMPH2 Negative Amphetamines, Urine Negative Result Comment: Cutoff threshold at 1000 ng/mL. LAB UTHC2 Negative Cannabinoids, Urine Negative Result Comment: Cutoff threshold at 50 ng/mL. LAB UOPI2 Negative Opiates, Negative Urine Result Comment: Cutoff threshold at 300 ng/mL. LAB UBARB2 Negative Barbiturates, Urine Negative Result Comment: Cutoff threshold at 200 ng/mL. LAB UETOH <11 mg/dL <11 Ethanol, Urine LAB UOXYC Negative Oxycodone, Negative Urine Result Comment: Cutoff threshold at 100 ng/mL. Comment: Immunoassay screen only. Cross reactivity with other substances can occur with immunoassay screening. Detection of any drug(s) in this urine toxicology panel is presumptive only. These tests are for med ical purposes only and should not be used for compliance monitoring, legal, or forensic use. Samples should be within normal physiological conditions (e.g. pH). This assay does not include adulteration/specimen validity testing. In clinical settings, confirmatory testing is at the practitioner's discretion [1]. If clinically indicated, confirmation by high specificity, quantitative methodology, which includes adulteration/spec imen validity testing, may be requested on the same specimen through Client Services ([phone]) if contacted within 48 hours of initial testing. [1]Substance Abuse and Mental Health Services Administration (2012). Clinical Drug Testing in Primary Care Technical Assistance Publication Series 32. Department of Health and Human Services, [place], p.10. These tests were developed and their performance characteristics determined by [facility]'s [facility] [place] ([facility]). They have not been cleared or a pproved by the FDA. [facility] is regulated under CLIA as qualified to perform high complexity testing. These tests are used for clinical purposes. They should not be regarded as investigational or for research. Performed By: #### UTOX2, UQNTPP #### [facility] [address] [id number] QUANT PAIN PANEL, Collected: 08/24/2018 Status: F Source: [facility] 4:10 PM [facility] REPOSITORY TYPE CODE TESTS RESULT OUT OF REFERENCE UNITS RANGE LAB UQCANN <16 ng/mL <16 Cannabinoid, Urine Result Comment: Tetrahydrocannabinol carboxylic acid (THCA) is a metabolite of olngj-[id number]-jdfmoavudoxybcvwvpuz which is the main active component of marijuana. LAB UQBNZL <24 ng/mL Benzoylecognine, Ur <24 Result Comment: Benzoylecognine is a metabolite of cocaine. LAB UQACMR <5 ng/mL 6-Acetylmorphine, Ur <5 Result Comment: 6-HARPREET (6-monoacetylmorphine, also known as 6-acetylmorphine) is a unique metabolite of heroin. Presence of 6-HARPREET indicates use of heroin. 6-HARPREET is further metabolized to morphine and absence of 6-HARPREET does not rule out the use of heroin. LAB UQAMPH <5 ng/mL Amphetamine, High Urine 497 Result Comment: Amphetamine may arise from amphetamine containing drugs (eg. Adderall and Benzedrine) or by metabolism of methamphetamine. Clobenzorex, famprofazone, fenethylline, fenproporex, and mefenorex contain amphetamine pro-drugs which can be metabolized to amphetamine. Selegiline is metabolized to both amphetamine and methamphetamine. LAB UQMAMP <8 ng/mL Methamphetamine, Ur <8 LAB UQBUPR <20 ng/mL Buprenorphine, Ur <20 LAB UQNBUP <20 ng/mL Norbuprenorphine, Ur <20 Result Comment: Norbuprenorphine is the primary active metabolite of buprenorphine. LAB UQMTHD <16 ng/mL Methadone, Urine <16 LAB UQEDDP <6 ng/mL EDDP, Urine <6 Result Comment: EDDP is a metabolite of methadone. LAB UQTRAM <25 ng/mL Tramadol, Urine <25 LAB UQDTRM <20 ng/mL Desmethyltramadol <20 ,Ur Result Comment: Desmethyltramadol is a metabolite of tramadol. LAB UQFNTL <6 ng/mL Fentanyl, Urine <6 LAB UQNFTL <6 ng/mL Norfentanyl, Urine <6 Result Comment: Norfentanyl is a metabolite of fentanyl. LAB UQCODE <11 ng/mL Codeine, Urine <11 LAB UQMORP <10 ng/mL Morphine, Urine <10 Result Comment: Morphine is a metabolite of codeine and heroin. LAB UQDCDN <5 ng/mL Dihydrocodeine, Ur <5 LAB UQHCOD <8 ng/mL Hydrocodone, Urine <8 Result Comment: Hydrocodone is a metabolite of dihydrocodeine. LAB UQOXYC <10 ng/mL Oxycodone, Urine <10 LAB UQHMOR <5 ng/mL Hydromorphone, Ur <5 Result Comment: Hydromorphone is a metabolite of hydrocodone. LAB UQOXYM <5 ng/mL Oxymorphone, Urine <5 Result Comment: Oxymorphone is a metabolite of oxycodone. LAB UQCREA 46.8-314.5 mg/dL Creatinine, 119.4 Urine LAB UQPH 4.5-8.0 pH, Urine 7.5 LAB UQSPGR 1.002-1.030 Specific 1.010 [place],Ur LAB UQOXID <200 mg/L Oxidants, <38 Urine LAB SVNI01 <51 mg/L <50 NITRITES,URINE LAB SVCH01 <50 mg/L <10 CHROMATE,URINE LAB SVSQ01 Specimen QUALITY,URINE quality results within acceptable limits. LAB UQNOTE Note This test is for Medical use only. Result Comment: This test was developed and its performance characteristics determined by [facility] [place] ([facility] It has not been cleared or approved by the FDA. [facility] is regulated under CLIA as qualified to perform high-complexity testing. This test is used for clinical purposes. It should not be regarded as investigational or for research. Performed By: #### UTOX2, UQNTPP #### [facility] [address] [place] [id number] PROGRESS Observed: 08/24/2018 Status: COMPLETED Source: [place] 2:38 PM [facility] REPOSITORY HNO ID: [id number] Author: Main Kelly (Lili) Thomas Service: (none) Author Type: Nurse Practitioner Type: Progress Notes Filed: 08/24/2018 3:25 PM Note Text: Chief Complaint Patient presents with: Refill Request: patient would like to restart medication fo ADHD HPI Vignesh Salinas is a 28 year old male who presents here today for Above Complaints. Trouble with focus, concentrating, paying attention, difficulty holding down a job, tardiness. 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 Reports written warnings at work due to tardiness, difficulty keeping track of time when he goes on break or lunch. Easily gets distracted. 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 Previously on Ritalin, most recent was Adderall 20 mg XR last written in 2007. Freely discloses substance abuse with Opioids in the past, spent time in longterm, previously on Suboxone, 2 years clean, willingly offers to submit urine for drug screen. Denies any current medications, denies any illicit substance use. Past medical history, appointments, medications, allergies reviewed. Previous Medical History PAST MEDICAL HISTORY Diagnosis Date - Abdominal pain, unspecified site 10/01 10/01 EGD multiple studies all negative per Dr. Galindo - Attention deficit disorder without mention of hyperactivity stopped medication 2002 - Closed fracture of base of other metacarpal bone(s) 4/03 fx 5th - Drug abuse (HCC) - Hemarthrosis, other specified site 08/31 right knee hemarthrosis per [place] - Infectious mononucleosis with hepatitis and axillary lymph node enlargement - Major depressive disorder Previous Surgical History PAST SURGICAL HISTORY Procedure Laterality Date - LUMPECTOMY/RADIOTHERAPY DIAG MAMM/A10 : negative lymph node bx Family History FAMILY HISTORY Problem Relation Age of Onset - other (mutiple sclerosis [Other]) Father - Multiple Sclerosis Paternal Uncle - Cancer Maternal Grandmother - Cancer Paternal Grandmother Patient Allergies ALLERGIES Allergen Reactions - Ibuprofen GI Upset - Naproxen GI Upset - Penicillin G GI Upset Current Medications Current Outpatient Prescriptions on File Prior to Visit: predniSONE (DELTASONE) 10 mg tablet Take 6 tabs for 3 days, then 4 tabs for 3 days, then 2 tabs for 3 days then 1 tab for 3 days with food. cetirizine (ZYRTEC) 10 mg tablet Take 1 tablet by mouth once daily. SUBOXONE 8-2 mg film PARoxetine (PAXIL) 20 mg tablet Take 1 tablet by mouth daily with dinner. traZODone (DESYREL) 150 mg tablet Take 1 tablet by mouth at bedtime as needed. No current facility-administered medications on file prior to visit. Social History Social History Marital status: Single Spouse name: Years of education: Number of children: Social History Main Topics Smoking status: Current Every Day Smoker Packs/day: 1.00 Years: 2.00 Types: Cigarettes Smokeless tobacco: Never Used Comment: smokes 1 pack daily Alcohol use: No Drug use: No Sexual activity: Yes control/protection: Condom EXAM: BP 122/86 (BP Site: Left Arm, BP Position: Sitting, BP Cuff Size: Large Adult) Pulse 72 Temp 37.4 ?C (99.3 ?F) (Tympanic) Resp 18 Wt 89.4 kg (197 lb) BMI 30.85 kg/m? General Appearance: Well appearing, alert, in no acute distress, well-hydrated, well nourished.. Eyes: Anicteric sclera. Pupils are equally round and reactive to light. Extraocular movements are intact. . Oropharynx: Lips, mucosa, and tongue normal, teeth and gums normal, oropharynx normal. Neck: Supple, no adenopathy; thyroid symmetric, normal size, Lungs: Lungs clear to auscultation. No wheezing, rhonchi, rales. Heart: RRR without murmur, gallop, or rubs. No ectopy. Adult ADHD screening tool-positive, sent to scanning. 05/06. Health Maintenance List ONE PNEUMOVAX PRIOR TO AGE 65 due on 2009 DTAP,TDAP,TD(8 - Tdap) due on 04/19/2018 INFLUENZA(1) due on 08/01/2018 ASSESSMENT/PLAN: 1. Adult ADHD - ICD9: 314.01, ICD10: F90.9 (primary diagnosis) -Discussed potential options for medications. Will await results of Urine Tox screen, pain panel prior to any stimulant medications. The patient indicates understanding of these issues and agrees with the plan. - Will review with Dr. Gayle, PCP. May consider non-stimulant therapy such as Strattera or Intunive. - TOX SCREEN ROUT UR - PAIN PANEL, UR QUANT 2. Controlled substance agreement signed - ICD9: V58.69, ICD10: Z79.899 - Reviewed in detail Controlled substance agreement which was signed. Explained no replacement of any lost, stolen, or accidentally destroyed medication. The patient indicates understanding of these issues and agrees with the plan. Main Guzman MSN PRODUCTION REPAIRER.ELECTRICAL POWER STATION TECHNICIAN CNOV Observed: 08/24/2018 Status: COMPLETED Source: [place] 2:20 PM [facility] REPOSITORY Office Visit (FAMPWS) VIGNESH SALINAS ([id number]) 1990 M IPA Date Time Provider Department 08/24/18 2:20 PM MAIN [facility]MAN (REEL WINDER) FAMPWS During your visit today, we recorded the following information about you: Temperature Pulse Respiration Blood pressure 99.3 degrees 72/minute 18/minute 122/86 Weight 89.4 kg PATT Au PRODUCTION REPAIRER.ELECTRICAL POWER STATION TECHNICIAN 08/24/2018 3:25 PM Signed Chief Complaint Patient presents with: Refill Request: patient would like to restart medication fo ADHD HPI Vignesh Salinas is a 28 year old male who presents here today for Above Complaints. Trouble with focus, concentrating, paying attention, difficulty holding down a job, tardiness. 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 Reports written warnings at work due to tardiness, difficulty keeping track of time when he goes on break or lunch. Easily gets distracted. 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 Previously on Ritalin, most recent was Adderall 20 mg XR last written in 2007. Freely discloses substance abuse with Opioids in the past, spent time in longterm, previously on Suboxone, 2 years clean, willingly offers to submit urine for drug screen. Denies any current medications, denies any illicit substance use. Past medical history, appointments, medications, allergies reviewed. Previous Medical History PAST MEDICAL HISTORY Diagnosis Date - Abdominal pain, unspecified site 10/01 10/01 EGD multiple studies all negative per Dr. Galindo - Attention deficit disorder without mention of hyperactivity stopped medication 2002 - Closed fracture of base of other metacarpal bone(s) 03/03 fx 5th - Drug abuse (HCC) - Hemarthrosis, other specified site 08/31 right knee hemarthrosis per Ir[place] - Infectious mononucleosis with hepatitis and axillary lymph node enlargement - Major depressive disorder Previous Surgical History PAST SURGICAL HISTORY Procedure Laterality Date - LUMPECTOMY/RADIOTHERAPY DIAG MAMM/A10 : negative lymph node bx Family History FAMILY HISTORY Problem Relation Age of Onset - other (mutiple sclerosis [Other]) Father - Multiple Sclerosis Paternal Uncle - Cancer Maternal Grandmother - Cancer Paternal Grandmother Patient Allergies ALLERGIES Allergen Reactions - Ibuprofen GI Upset - Naproxen GI Upset - Penicillin G GI Upset Current Medications Current Outpatient Prescriptions on File Prior to Visit: predniSONE (DELTASONE) 10 mg tablet Take 6 tabs for 3 days, then 4 tabs for 3 days, then 2 tabs for 3 days then 1 tab for 3 days with food. cetirizine (ZYRTEC) 10 mg tablet Take 1 tablet by mouth once daily. SUBOXONE 8-2 mg film PARoxetine (PAXIL) 20 mg tablet Take 1 tablet by mouth daily with dinner. traZODone (DESYREL) 150 mg tablet Take 1 tablet by mouth at bedtime as needed. No current facility-administered medications on file prior to visit. Social History Social History Marital status: Single Spouse name: Years of education: Number of children: Social History Main Topics Smoking status: Current Every Day Smoker Packs/day: 1.00 Years: 2.00 Types: Cigarettes Smokeless tobacco: Never Used Comment: smokes 1 pack daily Alcohol use: No Drug use: No Sexual activity: Yes control/protection: Condom EXAM: BP 122/86 (BP Site: Left Arm, BP Position: Sitting, BP Cuff Size: Large Adult) Pulse 72 Temp 37.4 ?C (99.3 ?F) (Tympanic) Resp 18 Wt 89.4 kg (197 lb) BMI 30.85 kg/m? General Appearance: Well appearing, alert, in no acute distress, well-hydrated, well nourished.. Eyes: Anicteric sclera. Pupils are equally round and reactive to light. Extraocular movements are intact. . Oropharynx: Lips, mucosa, and tongue normal, teeth and gums normal, oropharynx normal. Neck: Supple, no adenopathy; thyroid symmetric, normal size, Lungs: Lungs clear to auscultation. No wheezing, rhonchi, rales. Heart: RRR without murmur, gallop, or rubs. No ectopy. Adult ADHD screening tool-positive, sent to scanning. 05/06. Health Maintenance List ONE PNEUMOVAX PRIOR TO AGE 65 due on 2009 DTAP,TDAP,TD(8 - Tdap) due on 04/19/2018 INFLUENZA(1) due on 08/01/2018 ASSESSMENT/PLAN: 1. Adult ADHD - ICD9: 314.01, ICD10: F90.9 (primary diagnosis) -Discussed potential options for medications. Will await results of Urine Tox screen, pain panel prior to any stimulant medications. The patient indicates understanding of these issues and agrees with the plan. - Will review with Dr. Gayle, PCP. May consider non-stimulant therapy such as Strattera or Intunive. - TOX SCREEN ROUT UR - PAIN PANEL, UR QUANT 2. Controlled substance agreement signed - ICD9: V58.69, ICD10: Z79.899 - Reviewed in detail Controlled substance agreement which was signed. Explained no replacement of any lost, stolen, or accidentally destroyed medication. The patient indicates understanding of these issues and agrees with the plan. Main uGzman, MSN PRODUCTION REPAIRER.ELECTRICAL POWER STATION TECHNICIAN Referring Provider: SELF [[id number]] Allergies As of Date: 08/24/2018 Noted Allergy Reaction IBUPROFEN 06/29/2009 8 - GI Upset NAPROXEN 10/18/2015 8 - GI Upset PENICILLIN G 09/26/2014 8 - GI Upset Date Reviewed: 08/24/2018 Reviewed by: Henri Bradley LPN - Fully Assessed Reason for Visit: Refill Request [94] Cmt: patient would like to restart medication fo ADHD Primary Visit Diagnosis:Adult ADHD [F90.9] Other Visit Diagnosis:Controlled substance agreement signed [Z79.899] Order(s):TOX SCREEN ROUT UR [SQUTOX2] Order #: [id number] PAIN PANEL, UR QUANT [SQUQNTPP] Order #: [id number] Problem List As Of Date 08/24/2018 Noted Resolved NO SHOW [060823] INVALID FOR* Backache, unspecified [M54.9] INVALID FOR* Priority: D Lumbago [M54.5] INVALID FOR*04/03/2012 Drug abuse [F19.10] Priority: B More... Pain in joint, shoulder region [M25.519] INVALID FOR* Priority: D Major depressive disorder (HCC) [F32.9] INVALID FOR* Priority: A More... Smoker [F17.200] INVALID FOR* Priority: C More... Opiate abuse, episodic [F11.10] INVALID FOR* Priority: B More... Encounter for screening for cardiovascular diso*INVALID FOR* Medications Discontinued During This Encounter traZODone (DESYREL) 150 mg tablet 30 t* 0 05/06/2016 08/24/2018 Class: Med Update Cmt: [facility] Route: ORAL Sig: Take 1 tablet by mouth at bedtime as needed. Disc: Discontinued by Patient PARoxetine (PAXIL) 20 mg tablet 30 t* 0 05/06/2016 08/24/2018 Class: Med Update Cmt: [facility] Route: ORAL Sig: Take 1 tablet by mouth daily with dinner. Disc: Discontinued by Patient SUBOXONE 8-2 mg film 09/25/2016 08/24/2018 Class: Historical Med Sig: Disc: Discontinued by Patient predniSONE (DELTASONE) mg tablet 39 t* 0 04/25/2018 08/24/2018 Sig: Take 6 tabs for 3 days, then 4 tabs for 3 days, then 2 tabs for 3 days then 1 tab for 3 days with food. Disc: Discontinued by Patient cetirizine (ZYRTEC) 10 mg tablet 30 t* 0 04/25/2018 08/24/2018 Route: ORAL Sig: Take 1 tablet by mouth once daily. Disc: Discontinued by Patient Follow-up and Disposition History Recorded Letter Text [facility] Department of Family Medicine [address] [place] [address] TO WHOM IT MAY CONCERN: This is to confirm that Vignesh Salinas had an appointment and was seen at the [facility] in the Department of Family Medicine IVONNE Tristan on 08/24/2018, appointment 2:20 pm. Sincerely yours, IVONNE Tristan Encounter Status:Closed by MAIN GUZMAN ELECTRICAL POWER STATION TECHNICIAN on 08/24/18 EMERGENCY DEPARTMENT Observed: 08/20/2018 Status: F Source: [place] SUMMARY 12:41 AM [facility] [place] [facility] Medical Records Department [address] [place] [address] Emergency Department Summary 08/19/18 1619 MR#: [id number] Acct: [id number] Name: VIGNESH SALINAS Rep #: [id number] : 1990 28 From: Niyah English MD PCP: Yashira Steinberg III, MD Status: DEP ER - ER Visit Summary Date of Service: 08/19/18 Chief Complaint: Abscess on tailbone History of Present Illness: The patient is a 28 M who presents for complaint of abscess on his tailbone for 2 days. Patient states he has had so much pain he cannot sleep well, lay down, and it hurts when he walks. He denies fever or any other constitutional symptoms. He denies any prior history of an abscess in this area or any other abscesses. He is tried Tylenol and warm compresses without relief. He denies any medical problems. Physical Examination: Vital signs: afebrile, hemodynamically stable, no hypoxia on room air General: well nourished, well developed, in no distress, groggy Skin: warm, dry, no rash, no pallor Respiratory: No increased work of breathing Abdominal: Abdomen is soft, nontender with normoactive bowel sounds, no guarding or rebound, no masses, 2 cm erythematous indurated area with 2 central pustules left lateral of the superior gluteal fold. No swelling or abscess noted at the area of a pilonidal cyst. No vesicles noted. Surrounding skin tender but no fluctuance or induration noted other than the focal 2 cm area. MSK: Moves all extremities, no deformities, normal strength Neuro: Awake and alert, oriented 4. No facial droop, sensation and motor function intact and symmetric Test Results: [] Emergency Department Course and Treatment: Patient's level of pain seems out of proportion to the size of the small area of cellulitis/possible abscess. Because of the location, it may be a lateralized pilonidal cyst. The area was cleansed with Shur-Clens, and a field block was performed with 1% lidocaine. After achieving good anesthesia, a stab incision was made in the pustule without return of pus. This is not a pilonidal cyst but a small area of cellulitis. Patient continued to complain of severe pain in the area, again that seemed out of proportion to the lesion. The area all around the lesion was soft and nontender, thus there was no evidence of a deep tracking into the deeper tissues. Patient was prescribed antibiotics and is to use [id number] pain medications as needed. He was given an IM injection of Toradol prior to discharge. Discharge home. Treatment Plan: [] Disposition: [] Impression: Skin cellulitis of left upper buttock This note was generated with [employer]ac[employer] dictation software. It may contain incorrect words, spelling, and punctuation that were not noted in review of the chart prior to signing ED Disposition - Plan for ED Patient: Disposition: Home or Assisted Living Chief Complaint: Abscess Instructions: ED Infec Skin Cellulitis Prescriptions: Clindamycin [Cleocin] 300 mg PO TID 7 Days #42 cap Referrals: Yashira Steinberg III, MD [Primary Care Provider] - 3-5 Days if not improving Additional Instructions: Take the antibiotic as prescribed for the entire 7 days even if you feel better before the antibiotic is finished. You may use [id number] pain medication of your choice as needed for pain. If you have any worsening of your condition or any new concerning symptoms, please return immediately to the emergency department for another evaluation. What to do if you have Problems For any increased pain, shortness of breath, bleeding, nausea or vomiting, chest pain, or any unexpected problems, contact your Primary Care Provider. Call [facility] ([phone]) or report to the closest Emergency Room. Call 911 if necessary. 08/20/18 0041 <Electronically signed by Niyah English MD> Date Niyah English MD Cosigner Signature (If Indicated): Date CC: Yashira Steinberg III, MD DISCHARGE INSTRUCTION Observed: 08/20/2018 Status: F Source: [place] 12:22 AM [facility] [place] [facility] Medical Records Department [address] [place] [address] Discharge Instruction 08/19/18 1706 MR#: [id number] Acct: [id number] Name: VIGNESH SALINAS Rep #: [id number] : 1990 28 From: Niyah English MD PCP: Yashira Steinberg III, MD Status: [facility] ER ED Disposition - Plan for ED Patient: Disposition: Home or Assisted Living Chief Complaint: Abscess Instructions: ED Infec Skin Cellulitis Prescriptions: Clindamycin [Cleocin] 300 mg PO TID 7 Days #42 cap Referrals: Yashira Steinberg III, MD [Primary Care Provider] - 3-5 Days if not improving Additional Instructions: Take the antibiotic as prescribed for the entire 7 days even if you feel better before the antibiotic is finished. You may use [id number] pain medication of your choice as needed for pain. If you have any worsening of your condition or any new concerning symptoms, please return immediately to the emergency department for another evaluation. What to do if you have Problems For any increased pain, shortness of breath, bleeding, nausea or vomiting, chest pain, or any unexpected problems, contact your Primary Care Provider. Call [facility] ([phone]) or report to the closest Emergency Room. Call 911 if necessary. 08/20/18 0022 <Electronically signed by Niyah English MD> Date Niyah English MD Cosigner Signature (If Indicated): Date CC: Yashira Steinberg III, MD EMERGENCY REPORT Observed: 08/13/2018 Status: F [facility] EMERGENCY ROOM REPORT NAME ACCOUNT SEX AGE ADMIT DISCHARGE PT MED. RECORD# NUMBER DATE DATE TYPE CARMEN, [id number] M 28 08/11/18 08/11/18 3 VIGNESH Peña [id number] ROOM: ER DATE OF : 1990 DICTATING PHYSICIAN: Obdulia Baker Date seen is August 11, 2018 at 5:10 p.m. HISTORY OF PRESENT ILLNESS: The patient is a 28-year-old male complaining of diffuse generalized bilateral lower quadrant abdominal pain which radiates through to his back. He does complain of some urinary frequency and urgency and also complains of some burning with urination. He also admits to some dysuria. He denies any discharge, but states that his girlfriend had something and she may have given it to him. He states he has had the symptoms for the past 1 month. He presently rates his abdominal pain as a 6 on a severity scale of 1 to 10. He describes it as sharp in nature, worse with movement. PAST MEDICAL HISTORY: Includes previous CVA. PAST SURGICAL HISTORY: Denies. ALLERGIES: He has no known drug allergies. SOCIAL HISTORY: He is not a smoker. He denies any use of alcohol or illicit drugs. He does live at home with his family. REVIEW OF SYSTEMS: He denies any chest pain, shortness of breath, cough, sputum, wheezing. He does admit to abdominal pain. He denies any nausea, vomiting, diarrhea, constipation, melena, hematochezia. He does admit to urinary urgency and frequency. He complains of burning with urination, but denies any penile discharge. He does complain of back pain. He denies any headache, numbness, unsteady gait, weakness, neck or joint pain, skin rash, swelling, hives, hayfever, or swollen glands. Further review of systems is negative. PHYSICAL EXAMINATION: Vital signs: Blood pressure is 158/102, pulse 91, respirations 18, temperature 98.2. The patient is alert and oriented x3. He appears in no acute distress. He is pleasant and cooperative. HEENT: Head appears atraumatic. Pupils are equal and reactive to light. Red reflex intact bilaterally. Extraocular muscles are intact. No conjunctival injection. No scleral icterus or lid edema. Nose: Exhibits no rhinorrhea or epistaxis. Mouth: Mucous membranes are moist. No pharyngeal erythema. Uvula is midline and elevates. Neck is supple. Trachea is midline. No JVD or lymphadenopathy. No posterior cervical tenderness. No nuchal rigidity. Lungs: Clear to Page 1 of 2 VIGNESH SALINAS Emergency Room Report auscultation in all lung pollock. No adventitious sounds are noted. No accessory muscle use. CV: Heart rate and rhythm are regular without murmur. Abdomen is soft with some diffuse palpable tenderness in the bilateral lower abdominal quadrants. He is more tender on the right than the left and he does have some voluntary guarding, but no involuntary guarding. No rebound. No distension. Back exhibits no midline or paraspinal region tenderness. No increased paraspinal muscle rigidity. Negative David's sign. Extremities: No edema or cyanosis. Peripheral pulses are intact. No motor or sensory deficits are noted. Hand classroom monitor are strong and symmetric. Skin is warm and dry. No diaphoresis. I do note a folliculitis type rash across the anterior abdomen and near the suprapubic region. It does appear that he shaves the hair off his abdominal wall, and that looks like it has developed a small mild folliculitis. There is no lymphangitic streaking. It is minimally red. It is not warm to touch. Neurologic examination shows the patient to be alert and oriented x4. No motor or sensory deficits are noted. Normal speech. EMERGENCY DEPARTMENT COURSE AND TREATMENT/PLAN/DISPOSITION: The patient is somewhat agitated. He is complaining about the patient in the bed next to him is being rude. He is also asking how long this will take. I advised him that if we are going do to this right and work him up for the abdominal pain it is going to take a couple of hours. Presently, he is agreeable with that. So I am going to go ahead and order a CT abdomen and pelvis, urinalysis, GC and chlamydia and some screening blood work and then we will reevaluate. Dictated By: Obdulia Baker DO 08/11/18 17:50 JOB #: [id number] Transcribed By: am 08/12/18 16:06 Electronically signed by: E-Sign: Dr. Obdulia Baker D.O. 08/13/18 20:27 Page 2 of 2 VIGNESH SALINAS Emergency Room Report HISTORY PHYSICAL Observed: 08/12/2018 Status: COMPLETED Source: [place] 2:19 PM [facility] [place] REPOSITORY HNO ID: [id number] Author: Lon Crowe Service: (none) Author Type: Nurse Practitioner Type: HANDP Filed: 08/12/2018 2:25 PM Note Text: Patient presents to [facility] care desk operator with abdominal pain. Patient triaged by REEL WINDER. Patient reports lower abdominal pain 7/10 currently. Patient reports that he went to [facility] last night and they were concerned for appendicitis, but did not get the workup done because he disagreed with the provider. Informed patient of limitations of [facility] care and I recommended ER evaluation. Patient visibly irritated and using profanity while leaving [facility]. URINALYSIS Collected: 08/11/2018 Status: F Source: [facility] 5:10 PM [facility] REPOSITORY TYPE CODE TESTS RESULT OUT OF REFERENCE UNITS RANGE LAB URINALYSIS (LOINC) URINALYSIS Result Comment: URINALYSIS LAB Specimen Type(LOINC) Specimen Type Void LAB Color(LOINC) NORMAL: YELLOW Color jasbir LAB Clarity(LOINC) NORMAL: CLEAR Clarity sl.cloudy LAB ph(LOINC) NORMAL: 5.0-8.0 ph 6 LAB Protein(LOINC) NORMAL: NEGATIVE Protein Abnormal 30 LAB Glucose(LOINC) NORMAL: NORMAL Glucose NORM LAB Ketone(LOINC) NORMAL: NEGATIVE Ketone NEG LAB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
== END 2018-10-28 01:01 | disposition home or self-care (01) ==
PROVIDERS: Emergency Provider Emergency Medicine; Family Provider Family Medicine; PCP Family Medicine
DX: S61.401A Unspecified open wound of right hand, initial encounter (principal); L03.113 Cellulitis of right upper limb; X58.XXXA Exposure to other specified factors, initial encounter; Y93.9 Activity, unspecified; Y92.9 Unspecified place or not applicable; F90.9 Attention-deficit hyperactivity disorder, unspecified type; Z79.899 Other long term (current) drug therapy; Z72.0 Tobacco use
CPT/HCPCS: 99283

== ENCOUNTER 2018-11-09 15:38 | Inpatient (IN) | payer MEDICAID, SELFPAY ==
[2018-11-09 15:52] VITALS: BMI 28.1
--- NOTE | 2018-11-09 15:59 | PCM.HP.STD ---
History of Present Illness Date of Admission: 11/09/18 Chief Complaint: Nausea, restless leg The patient is a 28 year old M with a hx of Hepatitis C, heroin addiction, [place] in 2014 when using cocaine Past Medical History Past Medical History (Chronic Problems): Chronic Problems Opiate dependence (Chronic) Allergies naproxen [From Naprosyn] Adverse Reaction (Verified 10/28/18 00:23) Nausea Penicillins Adverse Reaction (Verified 10/28/18 00:23) Nausea Home Medications: Ambulatory Orders Medication Instructions Recorded Cephalexin [Keflex] 500 mg PO Q6 #40 cap 10/28/18 Guanfacine HCl 1 mg PO DAILY 10/28/18 Smz/Tmp Ds [Bactrim Ds] 1 tab PO BID #14 tab 10/28/18 Surgical History: - Smoking Status: Current every day smoker - *Family History Maternal History Items: Unknown - Physical Exam Weight: 179 lb 10.828 oz Body Mass Index (BMI) 28.1 Assessment/Plan All Active Problems Acute renal insufficiency (Acute) Ankle sprain (Acute) NSTEMI (non-ST elevated myocardial infarction) (Acute) Abnormal echocardiogram (Acute) Abnormal cardiac enzyme level (Acute) Encephalopathy (Acute) Acute respiratory failure (Acute) Contusion (Acute)
[2018-11-09 16:00] VITALS: BP 125/84; PULSE 92; RESP 16; TEMP 36.6
[2018-11-09 16:02] VITALS: O2SAT 98
--- NOTE | 2018-11-09 16:03 | HP.PCM_ITS ---
History of Present Illness Date of Admission: 11/09/18 Chief Complaint: Nausea, restless leg The patient is a 28 year old M with a hx of Hepatitis C, heroin addiction, [place] in 2014 when using cocaine Past Medical History Past Medical History (Chronic Problems): Chronic Problems Opiate dependence (Chronic) Allergies naproxen [From Naprosyn] Adverse Reaction (Verified 10/28/18 00:23) Nausea Penicillins Adverse Reaction (Verified 10/28/18 00:23) Nausea Home Medications: Ambulatory Orders Medication Instructions Recorded Cephalexin [Keflex] 500 mg PO Q6 #40 cap 10/28/18 Guanfacine HCl 1 mg PO DAILY 10/28/18 Smz/Tmp Ds [Bactrim Ds] 1 tab PO BID #14 tab 10/28/18 Surgical History: - Smoking Status: Current every day smoker - *Family History Maternal History Items: Unknown - Physical Exam Weight: 179 lb 10.828 oz Body Mass Index (BMI) 28.1 Assessment/Plan All Active Problems Acute renal insufficiency (Acute) Ankle sprain (Acute) NSTEMI (non-ST elevated myocardial infarction) (Acute) Abnormal echocardiogram (Acute) Abnormal cardiac enzyme level (Acute) Encephalopathy (Acute) Acute respiratory failure (Acute) Contusion (Acute)
--- NOTE | 2018-11-09 16:08 | EKG12_ITS ---
Test Reason : ROUTINE Blood Pressure : / mmHG Vent. Rate : 093 BPM Atrial Rate : 093 BPM P-R Int : 150 ms QRS Dur : 094 ms QT Int : 354 ms P-R-T Axes : 065 075 039 degrees QTc Int : 440 ms Normal sinus rhythm Normal ECG When compared with ECG of 08-NOV-2016 05:46, No significant change was found Confirmed by RAYRAY MCLEOD, SEAMUS ([id number]), editor producer NORBERTO ZIMMER ([id number]) on 11/18/2018 4:04:04 PM Referred By: Glenn Freeman Confirmed By:SEAMUS SEO MD
--- NOTE | 2018-11-09 16:24 | PCM.HP.STD ---
Problem List (1) NSTEMI (non-ST elevated myocardial infarction) Status: Resolved (2) Opiate dependence Status: Chronic (3) Hepatitis C Status: Chronic (4) Tobacco dependence Status: Chronic History of Present Illness Date of Admission: 11/09/18 Chief Complaint: Opioid withdrawal. The patient is a 28 year old M who presents through [facility] program due to opioid withdrawal. 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 Patient states he has been using opioids for the past 12 years. He has completed inpatient treatment 1 time before. He states he uses 1-2 g of heroin and methamphetamine as he is able. He smokes 1 pack/day. Denies alcohol use. His last opioid use was last evening around 6 PM. He currently complains of restlessness, anxiety, abdominal cramping, diarrhea. He denies chest pain, shortness of breath. Patient has multiple skin abrasions. He states he was recently seen in the ER 10/28/2018 due to right hand cellulitis with ulcerated wound. 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 He notes right outer hand continues to have some purulent drainage. Patient reports he wishes to attend [facility] inpatient treatment facility at discharge. Past Medical History Past Medical History (Chronic Problems): Chronic Problems Hepatitis C (Chronic) Tobacco dependence (Chronic) Opiate dependence (Chronic) Allergies naproxen [From Naprosyn] Adverse Reaction (Verified 10/28/18 00:23) Nausea Penicillins Adverse Reaction (Verified 10/28/18 00:23) Nausea Home Medications: Ambulatory Orders Medication Instructions Recorded NK 11/09/18 Surgical History: no surgical history Psychiatric History: No pertinent psych hx Lives: Spouse/ Significant Other Smoking Status: Current every day smoker Tobacco Use: Cigarettes Alcohol: None Drugs: Heroin, - - Methamphetamine - *Family History Maternal History Items: - - Denies known maternal medical history including cardiac Paternal History Items: - - Multiple sclerosis Review of Systems Constitutional: Denies: Chills, Fever, Weight Change HEENT: Denies: Head Aches, Sinus Congestion, Sinus Drainage Cardiovascular: Denies: Chest Pain, Edema, Palpitations, Syncope Respiratory: Denies: Cough, Shortness of breath at rest, Sputum production Gastrointestinal: Reports: Diarrhea, - - Abdominal cramping. Denies: Abdominal Pain, Nausea, Vomiting Genitourinary: Denies: Dysuria Musculoskeletal: Denies: Joint Pain, Joint Tenderness Skin: Reports: Wounds - Right hand ulnar wound, healing ulcerations back of neck and left side of face.. Denies: Rash Neurological: Denies: Numbness, Tingling, Focal weakness Psychiatric: Reports: Anxiety Hematologic/ Lymphatic: Denies: Easy Bruising, Easy Bleeding VTE Information - Inpt Only VTE Present on Admission: No VTE Mechan Device Prophylaxis: None VTE Pharm Prophylaxis ordered?: No - Physical Exam General: Alert, Oriented x3, Cooperative HEENT: Atraumatic, PERRLA, EOMI, Normocephalic Neck: Supple, No JVD, Negative Carotid Bruits Lungs: Clear to auscultation, Normal air movement Cardiovascular: Regular rate, Regular Rhythm, Normal S1, Normal S2, No murmurs Abdomen: Bowel Sounds Present, Soft, Non Tender, Non-Distended Extremities: No clubbing, No cyanosis, No edema, Capillary Refill Less than 3 Seconds Skin: - - Right hand ulnar side healing ulceration, medial back of neck healing ulcerations, left face open ulceration. Musculoskeletal: No Tenderness to Palpation of Joints or Extremities Neurological: Cranial nerves II-XII grossly intact, Neuro grossly intact Psych/Mental Status: Normal Affect, Appropriate Vital Signs Temp Pulse Resp BP Pulse Ox 97.8 F 92 16 125/84 H 98 11/09/18 16:00 11/09/18 16:00 11/09/18 16:00 11/09/18 16:00 11/09/18 16:02 Oxygen Delivery Method Room Air Weight: 179 lb 10.828 oz Body Mass Index (BMI) 28.1 Assessment/Plan All Active Problems NSTEMI (non-ST elevated myocardial infarction) (Resolved) 1. Acute opioid withdrawal, polysubstance abuse-medical stabilization per protocol. Obtain urine tox screen. CBC, BMP. Patient plans on inpatient treatment facility at discharge. 2. Right hand cellulitis-Bactrim and Keflex. Patient was recently prescribed these and did not take them. 3. Tobacco dependence-encourage smoking cessation. Nicotine replacement patch. 4. History of RI, related to cocaine use-obtain EKG. Patient denies chest pain. 5. History of CVA, per patient report-chronic minimal left-sided weakness. 6. History of hepatitis C DVT prophylaxis-not indicated, low risk This patient was seen by ERIN Brown under the supervision of Dr. Freeman.
[2018-11-09] MEDS: cloNIDine HCl 0.1 MG Tablet PO (16:39)
[2018-11-09] MEDS: Buprenorphine HCl 2 MG TAB.SUBL SL (16:39)
[2018-11-09] MEDS: Pramipexole Di-HCl 0.25 MG Tablet PO (16:39)
[2018-11-09] MEDS: Dicyclomine 10 MG Capsule 20 MG PO (16:39)
[2018-11-09] MEDS: Methocarbamol 750 MG Tablet PO (16:39)
--- NOTE | 2018-11-09 16:48 | NURSING ---
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
[2018-11-09 16:52] LABS: Absolute Lymphocyte Count 1.29 X10^3/ul (0.83-4.51); Absolute Neutrophil Count 2.6 X10^3/uL (2.0-7.7); Basophil# 0.02 X10^3/uL; Basophil% 0.4 % (0-1); Eosinophil# 0.04 X10^3/uL; Eosinophils% 0.9 % (0-5); Hematocrit 42.4 % (40-54); Hemoglobin 14.6 g/dl (13.0-16.5); Lymphocyte # 1.29 X10^3/ul (4.0); Lymphocyte % 28.2 % (19-41); Mean Corp Hgb Conc 34.4 g/gl (32-36); Mean Corpuscular Hgb 30.5 pg (27.0-32.0); Mean Corpuscular Volume 88.7 fL (80-94); Monocyte# 0.58 X10^3/uL; Monocyte% 12.7 % (0-10); Neutrophil # 2.63 X10^3/uL (2.7-7.7); Neutrophil % 57.6 % (47-70); Platelet Count 153 K/mm3 (150-450); RBC Distribution Width SD 42.1 fl (35.1-43.9); Red Blood Count 4.78 M/mm3 (4.6-6.2); White Blood Count 4.6 K/mm3 (4.4-11.0)
[2018-11-09 17:01] LABS: POSITIVE COUNT NO; POSITIVE DIFFERENTIAL NO; POSITIVE MORPHOLOGY NO
[2018-11-09 17:05] LABS: Amphetamine Urine VISTA POSITIVE (<1000 ng/mL); Barbiturate Urine VISTA NEGATIVE (< 200 ng/mL); Benzodiazepine Urine VISTA NEGATIVE (< 200 ng/mL); Cocaine Urine VISTA NEGATIVE (< 300 ng/mL); Ecstacy Urine VISTA POSITIVE (< 500 ng/mL); Methadone Urine VISTA NEGATIVE (< 300 ng/mL); PCP Urine VISTA NEGATIVE (< 25 ng/mL); THC Urine VISTA NEGATIVE (< 50 ng/mL); Vista UDS pH Range 5
[2018-11-09 17:19] LABS: ALB/GLOB Ratio 0.9 RATIO (0.9-2.4); AST(SGOT) 22 U/L (15-37); Alanine Aminotransfer ALT/SGPT 38 U/L (16-61); Albumin, Serum 3.7 g/dL (3.2-5.0); Alkaline Phosphatase 57 U/L (45-117); Anion Gap 6 (5-15); BUN 7 mg/dL (7-18); BUN/Creat Ratio 7.7 RATIO (10-20); Calcium,Total 8.8 mg/dL (8.5-10.1); Chloride 105 mmol/L (98-107); Creatinine, Serum 0.91 mg/dL (0.70-1.30); EST Glomerular Filtration Rate 104 mL/min (>60); Est Glom Filt Rate - Afr Amer 126 mL/min (>60); Estimated Creatinine Clearance 112.99 ml/min; Globulin 3.9 g/dL (2.2-4.2); Glucose 118 mg/dL (74-106); Potassium 3.2 mmol/L (3.5-5.1); Protein, Total 7.6 g/dL (6.4-8.2); Sodium Level 137 mmol/L (136-145)
[2018-11-09] MEDS: Cephalexin 500 MG Capsule PO (17:22)
[2018-11-09] MEDS: Smz/Tmp Ds Tablet 1 TABLET PO (17:22)
--- NOTE | 2018-11-09 17:24 | NURSING ---
dietary called and requested strawberry ensure- no strawberry ensure on unit- pt refused at this time.
[2018-11-09 21:07] VITALS: BP 121/81; PULSE 84; RESP 16; TEMP 36.3
[2018-11-10] VITALS (7 sets, daily range): BP systolic 100–141; BP diastolic 53–83; PULSE 78–89; RESP 16; TEMP 36.3–36.8; O2SAT 99–100
[2018-11-10] MEDS: Buprenorphine HCl 2 MG TAB.SUBL SL ×3 (00:14→16:14)
[2018-11-10] MEDS: cloNIDine HCl 0.1 MG Tablet PO ×4 (00:14→13:48)
[2018-11-10] MEDS: Cephalexin 500 MG Capsule PO ×4 (00:14→19:34)
[2018-11-10] MEDS: Dicyclomine 10 MG Capsule 20 MG PO ×3 (00:14→16:13)
--- NOTE | 2018-11-10 03:00 | NURSING ---
Patient requesting that this RN open the med drawer and get out his last cigarette. Informed patient that [facility] is a smoke free campus and he cannot leave the floor anyway. Patient very argumentative and trying to bargain into leaving floor. This RN took [facility] code of conduct paperwork out of chart and showed patient the rules that he had signed for.
[2018-11-10] MEDS: Pramipexole Di-HCl 0.25 MG Tablet PO (05:31)
[2018-11-10] MEDS: Methocarbamol 750 MG Tablet PO ×2 (05:31→11:44)
[2018-11-10 09:16] LABS: Anion Gap 7 (5-15); BUN 7 mg/dL (7-18); Calcium,Total 8.5 mg/dL (8.5-10.1); Chloride 106 mmol/L (98-107); Creatinine, Serum 0.78 mg/dL (0.70-1.30); EST Glomerular Filtration Rate 125 mL/min (>60); Est Glom Filt Rate - Afr Amer 152 mL/min (>60); Estimated Creatinine Clearance 131.82 ml/min; Glucose 97 mg/dL (74-106); Sodium Level 141 mmol/L (136-145)
--- NOTE | 2018-11-10 09:51 | NURSING ---
pt on phone with jessica. c/o everyone is so fg gaye. This sarabia a looking little dumarixa came in here at 0630 to draw my blood and they just wake you up. Everyone keeps calling and i dont want to fg talk to anybody.
--- NOTE | 2018-11-10 10:14 | PN_ITS ---
<Sada Webb - Last Filed: 11/10/18 10:14> Subjective: Patient seen and examined. Nursing reports patient restless and agitated overnight. Patient requesting to go outside for cigarette. Offered nicotine replacement patch which patient refuses and states it will not work. - Physical Exam General: Alert, Oriented x3, - - Agitated HEENT: Atraumatic, PERRLA, EOMI, Normocephalic Neck: Supple, No JVD, Negative Carotid Bruits Lungs: Clear to auscultation, Normal air movement Cardiovascular: Regular rate, Regular Rhythm, Normal S1, Normal S2, No murmurs Abdomen: Bowel Sounds Present, Soft, Non Tender, Non-Distended Extremities: No clubbing, No cyanosis, No edema, Capillary Refill Less than 3 Seconds Skin: - - Right hand ulnar side healing ulceration, medial back of neck healing ulcerations, left face open ulceration. Musculoskeletal: No Tenderness to Palpation of Joints or Extremities Neurological: Cranial nerves II-XII grossly intact, Neuro grossly intact Psych/Mental Status: Agitated, Anxious, Restless Vital Signs Temp Pulse Resp BP Pulse Ox 97.8 F 89 16 107/69 98 11/10/18 05:25 11/10/18 05:25 11/10/18 05:25 11/10/18 05:25 11/09/18 16:02 Oxygen Delivery Method Room Air Weight: 179 lb 10.828 oz Body Mass Index (BMI) 28.1 Intake and Output for Last 24 Hours 11/08/18 11/09/18 11/10/18 23:59 23:59 23:59 Intake Total 1000 / 1000 Balance 1000 / 1000 Laboratory Tests Past 24 Hrs 11/09/18 11/09/18 11/09/18 16:25 16:40 16:40 WBC 4.6 RBC 4.78 Hgb 14.6 Hct 42.4 MCV 88.7 MCH 30.5 MCHC 34.4 RDW 13.0 RDW Differential 42.1 Plt Count 153 MPV 11.0 Immature Gran % (Auto) 0.200 Neut % (Auto) 57.6 Lymph % (Auto) 28.2 Dane % (Auto) 12.7 H Eos % (Auto) 0.9 Baso % (Auto) 0.4 Absolute Neuts (auto) 2.6 Absolute Lymphs (auto) 1.29 Total Counted Not Reportable Sodium 137 Potassium 3.2 L Chloride 105 Carbon Dioxide 26.0 Anion Gap 6 BUN 7 Creatinine 0.91 Estim Creat Clear Calc 112.99 Est GFR (MDRD) Af Amer 126 Est GFR (MDRD) Non-Af 104 BUN/Creatinine Ratio 7.7 L Glucose 118 H Calcium 8.8 Total Bilirubin 0.40 AST 22 ALT 38 Alkaline Phosphatase 57 Total Protein 7.6 Albumin 3.7 Globulin 3.9 Albumin/Globulin Ratio 0.9 Urine Opiates Screen POSITIVE H Urine Methadone Screen NEGATIVE Ur Barbiturates Screen NEGATIVE Ur Phencyclidine Scrn NEGATIVE Ur Amphetamines Screen POSITIVE H U Methamphetamin-MDMA POSITIVE H U Benzodiazepines Scrn NEGATIVE Urine Cocaine Screen NEGATIVE U Cannabinoids Screen NEGATIVE Ur Drug Screen Comment Ethyl Alcohol 11/09/18 11/10/18 16:40 08:32 WBC RBC Hgb Hct MCV MCH MCHC RDW RDW Differential Plt Count MPV Immature Gran % (Auto) Neut % (Auto) Lymph % (Auto) Dane % (Auto) Eos % (Auto) Baso % (Auto) Absolute Neuts (auto) Absolute Lymphs (auto) Total Counted Sodium 141 Potassium 4.0 Chloride 106 Carbon Dioxide 28.0 Anion Gap 7 BUN 7 Creatinine 0.78 Estim Creat Clear Calc 131.82 Est GFR (MDRD) Af Amer 152 Est GFR (MDRD) Non-Af 125 BUN/Creatinine Ratio 9.0 L Glucose 97 Calcium 8.5 Total Bilirubin AST ALT Alkaline Phosphatase Total Protein Albumin Globulin Albumin/Globulin Ratio Urine Opiates Screen Urine Methadone Screen Ur Barbiturates Screen Ur Phencyclidine Scrn Ur Amphetamines Screen U Methamphetamin-MDMA U Benzodiazepines Scrn Urine Cocaine Screen U Cannabinoids Screen Ur Drug Screen Comment Ethyl Alcohol 9.0 Medical Necessity - Tobacco Use Smoking Status: Current every day smoker Tobacco Use: Cigarettes Assessment/Plan All Active Problems NSTEMI (non-ST elevated myocardial infarction) (Resolved) 1. Acute opioid withdrawal, polysubstance abuse-medical stabilization per protocol. Urine tox screen positive for opiates, amphetamines, methamphetamine. BMP with mild hypokalemia. Patient plans on inpatient treatment facility at discharge. 2. Right hand cellulitis-Bactrim and Keflex. Patient was recently prescribed these and did not take them. 3. Tobacco dependence-encourage smoking cessation. Nicotine replacement patch. 4. History of [place], related to cocaine use-EKG without acute changes. Patient denies chest pain. 5. History of CVA, per patient report-chronic minimal left-sided weakness. 6. History of hepatitis C DVT prophylaxis-not indicated, low risk This patient was seen by ERIN Brown under the supervision of Dr. Cottrell. <Deedee Cottrell - Last Filed: 11/11/18 06:44> - Physical Exam Vital Signs Temp Pulse Resp BP Pulse Ox 98.1 F 86 16 141/83 H 99 11/10/18 12:00 11/10/18 12:00 11/10/18 12:00 11/10/18 12:00 11/10/18 12:00 Oxygen Delivery Method Room Air Weight: 81.5 kg Body Mass Index (BMI) 28.1 Intake and Output for Last 24 Hours 11/08/18 11/09/18 11/10/18 23:59 23:59 23:59 Intake Total 1000 / 1000 Balance 1000 / 1000 Laboratory Tests Past 24 Hrs 11/09/18 11/09/18 11/09/18 16:25 16:40 16:40 WBC 4.6 RBC 4.78 Hgb 14.6 Hct 42.4 MCV 88.7 MCH 30.5 MCHC 34.4 RDW 13.0 RDW Differential 42.1 Plt Count 153 MPV 11.0 Immature Gran % (Auto) 0.200 Neut % (Auto) 57.6 Lymph % (Auto) 28.2 Dane % (Auto) 12.7 H Eos % (Auto) 0.9 Baso % (Auto) 0.4 Absolute Neuts (auto) 2.6 Absolute Lymphs (auto) 1.29 Total Counted Not Reportable Sodium 137 Potassium 3.2 L Chloride 105 Carbon Dioxide 26.0 Anion Gap 6 BUN 7 Creatinine 0.91 Estim Creat Clear Calc 112.99 Est GFR (MDRD) Af Amer 126 Est GFR (MDRD) Non-Af 104 BUN/Creatinine Ratio 7.7 L Glucose 118 H Calcium 8.8 Total Bilirubin 0.40 AST 22 ALT 38 Alkaline Phosphatase 57 Total Protein 7.6 Albumin 3.7 Globulin 3.9 Albumin/Globulin Ratio 0.9 Urine Opiates Screen POSITIVE H Urine Methadone Screen NEGATIVE Ur Barbiturates Screen NEGATIVE Ur Phencyclidine Scrn NEGATIVE Ur Amphetamines Screen POSITIVE H U Methamphetamin-MDMA POSITIVE H U Benzodiazepines Scrn NEGATIVE Urine Cocaine Screen NEGATIVE U Cannabinoids Screen NEGATIVE Ur Drug Screen Comment Ethyl Alcohol 11/09/18 11/10/18 16:40 08:32 WBC RBC Hgb Hct MCV MCH MCHC RDW RDW Differential Plt Count MPV Immature Gran % (Auto) Neut % (Auto) Lymph % (Auto) Dane % (Auto) Eos % (Auto) Baso % (Auto) Absolute Neuts (auto) Absolute Lymphs (auto) Total Counted Sodium 141 Potassium 4.0 Chloride 106 Carbon Dioxide 28.0 Anion Gap 7 BUN 7 Creatinine 0.78 Estim Creat Clear Calc 131.82 Est GFR (MDRD) Af Amer 152 Est GFR (MDRD) Non-Af 125 BUN/Creatinine Ratio 9.0 L Glucose 97 Calcium 8.5 Total Bilirubin AST ALT Alkaline Phosphatase Total Protein Albumin Globulin Albumin/Globulin Ratio Urine Opiates Screen Urine Methadone Screen Ur Barbiturates Screen Ur Phencyclidine Scrn Ur Amphetamines Screen U Methamphetamin-MDMA U Benzodiazepines Scrn Urine Cocaine Screen U Cannabinoids Screen Ur Drug Screen Comment Ethyl Alcohol 9.0 Assessment/Plan This patient was seen in conjunction with Sada Webb GARMENT MANUFACTURING SUPERVISOR. I have independently interviewed and examined the patient and reviewed pertinent historical, laboratory, and other data. Please refer to her note for patient's presentation, findings, and recommendations. Patient was seen and examined. Patient was said to be eager to go outside to smoke. At the time of being seen, he complains of abdominal discomfort with cramps. Also complaining of back pain. Denied any fever or chills. Vitals were reviewed -stable Physical Exam: Gen: Looks in some discomfort, not pale, not jaundiced, alert oriented x3 CVS:HS I +II, regular, no murmurs RESP: Diminished at lung bases GI: Full, firm, nontender, no ballotable organs EXT:No edema, right hand cellulitis looks improved, started on Bactrim and Keflex Labs reviewed -hypokalemia is resolved Meds reviewed ASSESSMENT: 1. Acute opioid withdrawal 2. Polysubstance use 3. Hypokalemia, resolved 4. Nicotine dependence 5. Right hand cellulitis 6. H/o NE/CVA 7. Chronic Hep C Plan: Continue per [facility] protocol Complete course of antibiotics Code Visit Inpatient E&M: 70314 Subs Hosp L2
[2018-11-10] MEDS: Smz/Tmp Ds Tablet 1 TABLET PO ×2 (10:15→16:14)
[2018-11-10] MEDS: Ibuprofen 600 MG Tablet PO (10:17)
--- NOTE | 2018-11-10 11:40 | NURSING ---
pt had several visitors in room, including twin brother. This RN noted that patient was ambulating in hallway, wearing gown, getting ice water. But shortly after, twin brother came up the elevator. This RN realized that the one who came up the elevator had wounds on his face, like the patient does, and became suspicious that the two switched clothes so the patient could go outside to smoke. observed on the room camera them changing clothes again, and entered the room as one entered the bathroom and the other was pulling up his pants saying I just took a crap. asked directly if they switched clothes in order for the pt to go outside to smoke and patient, brother, and visitors denied it. explained why I thought that had happened and asked them to be honest, all still denying. primary RN, Pari Hernández, and Dr Cottrell notified of concerns.
[2018-11-10] MEDS: Tuberculin,Purif.prot.deriv. 50 TU/ML Vial 5 ML ID (11:44)
--- NOTE | 2018-11-10 20:00 | NURSING ---
Pt refusing a head to toe assessment at this time. Was able to obtain a set of vitals. Still persistent on going outside to smoke, so this RN once again showed pt the [facility] code of conduct that he signed stating no leaving the floor. Pt requested to speak with Marcelina FUNES about the possibility of escorting him outside to smoke. Officer called and arrived to unit to inform patient that he could not do that. Patient very frustrated, states do not come back in here tonight if I am sleeping.
[2018-11-11] MEDS: Methocarbamol 750 MG Tablet PO ×2 (05:05→12:00)
[2018-11-11] MEDS: cloNIDine HCl 0.1 MG Tablet PO (05:05)
[2018-11-11] MEDS: Cephalexin 500 MG Capsule PO ×2 (05:05→11:56)
[2018-11-11] MEDS: Pramipexole Di-HCl 0.25 MG Tablet PO (05:05)
[2018-11-11] MEDS: Buprenorphine HCl 2 MG TAB.SUBL SL (08:56)
[2018-11-11] MEDS: Ibuprofen 600 MG Tablet PO (09:00)
[2018-11-11] MEDS: Smz/Tmp Ds Tablet 1 TABLET PO (09:00)
[2018-11-11 09:05] VITALS: BP 105/67; PULSE 71; RESP 16; TEMP 36.5
--- NOTE | 2018-11-11 11:34 | PCM.PROGNOTE ---
<Sada Webb - Last Filed: 11/11/18 11:37> Subjective: Patient seen and examined. Irritable overnight. Rude to staff. Repeatedly requesting to go outside and smoke. Reinforced that this is not an option. [facility] AM tomorrow morning following discharge. - Physical Exam General: Alert, Oriented x3, Cooperative HEENT: Atraumatic, PERRLA, EOMI, Normocephalic Neck: Supple, No JVD, Negative Carotid Bruits Lungs: Clear to auscultation, Normal air movement Cardiovascular: Regular rate, Regular Rhythm, Normal S1, Normal S2, No murmurs Abdomen: Bowel Sounds Present, Soft, Non Tender, Non-Distended Extremities: No clubbing, No cyanosis, No edema, Capillary Refill Less than 3 Seconds Skin: - - Right hand ulnar side healing ulceration, medial back of neck healing ulcerations, left face open ulceration. Musculoskeletal: No Tenderness to Palpation of Joints or Extremities Neurological: Cranial nerves II-XII grossly intact, Neuro grossly intact Psych/Mental Status: Agitated, Anxious, Restless Vital Signs Temp Pulse Resp BP Pulse Ox 97.7 F L 71 16 105/67 100 11/11/18 09:05 11/11/18 09:05 11/11/18 09:05 11/11/18 09:05 11/10/18 14:00 Oxygen Delivery Method Room Air Weight: 179 lb 10.828 oz Body Mass Index (BMI) 28.1 Intake and Output for Last 24 Hours 11/09/18 11/10/18 11/11/18 23:59 23:59 23:59 Intake Total 1000 / 1000 Balance 1000 / 1000 Medical Necessity - Tobacco Use Smoking Status: Current every day smoker Tobacco Use: Cigarettes Assessment/Plan All Active Problems NSTEMI (non-ST elevated myocardial infarction) (Resolved) 1. Acute opioid withdrawal, polysubstance abuse-medical stabilization per protocol. Urine tox screen positive for opiates, amphetamines, methamphetamine. BMP with mild hypokalemia. Patient plans on inpatient treatment facility at discharge. 2. Right hand cellulitis-Bactrim and Keflex. Patient was recently prescribed these and did not take them. 3. Tobacco dependence-encourage smoking cessation. Nicotine replacement patch. 4. History of [place], related to cocaine use-EKG without acute changes. Patient denies chest pain. 5. History of CVA, per patient report-chronic minimal left-sided weakness. 6. History of hepatitis C DVT prophylaxis-not indicated, low risk This patient was seen by Sada Webb NP-C under the supervision of Dr. Cottrell. <Deedee Cottrell - Last Filed: 11/11/18 11:55> - Physical Exam Vital Signs Temp Pulse Resp BP Pulse Ox 97.7 F L 71 16 105/67 100 11/11/18 09:05 11/11/18 09:05 11/11/18 09:05 11/11/18 09:05 11/10/18 14:00 Oxygen Delivery Method Room Air Weight: 81.5 kg Body Mass Index (BMI) 28.1 Intake and Output for Last 24 Hours 11/09/18 11/10/18 11/11/18 23:59 23:59 23:59 Intake Total 1000 / 1000 Balance 1000 / 1000 Assessment/Plan This patient was seen in conjunction with Sada Webb MATERIAL HANDLING SUPERVISOR. I have independently interviewed and examined the patient and reviewed pertinent historical, laboratory, and other data. Please refer to her note for patient's presentation, findings, and recommendations. Patient was seen and examined. Sleeping at the time of exam. Reportedly rude to staff. Vitals were reviewed -stable Physical Exam: Gen:Appears comfortable, not pale, not jaundiced, alert oriented x3 CVS:HS I +II, regular, no murmurs RESP: Diminished at lung bases GI: Full, firm, nontender, no ballotable organs EXT:No edema, right hand cellulitis looks improved, started on Bactrim and Keflex Meds reviewed ASSESSMENT: 1. Acute opioid withdrawal 2. Polysubstance use 3. Hypokalemia, resolved 4. Nicotine dependence 5. Right hand cellulitis 6. H/o [place]/CVA 7. Chronic Hep C Plan: Continue per [facility] protocol Complete course of antibiotics DC tomorrow am Code Visit Inpatient E&M: [id number] Subs Hosp L2
--- NOTE | 2018-11-11 11:37 | PN_ITS ---
<Sada Webb - Last Filed: 11/11/18 11:37> Subjective: Patient seen and examined. Irritable overnight. Rude to staff. Repeatedly requesting to go outside and smoke. Reinforced that this is not an option. Patient to [facility] at 10 AM tomorrow morning following discharge. - Physical Exam General: Alert, Oriented x3, Cooperative HEENT: Atraumatic, PERRLA, EOMI, Normocephalic Neck: Supple, No JVD, Negative Carotid Bruits Lungs: Clear to auscultation, Normal air movement Cardiovascular: Regular rate, Regular Rhythm, Normal S1, Normal S2, No murmurs Abdomen: Bowel Sounds Present, Soft, Non Tender, Non-Distended Extremities: No clubbing, No cyanosis, No edema, Capillary Refill Less than 3 Seconds Skin: - - Right hand ulnar side healing ulceration, medial back of neck healing ulcerations, left face open ulceration. Musculoskeletal: No Tenderness to Palpation of Joints or Extremities Neurological: Cranial nerves II-XII grossly intact, Neuro grossly intact Psych/Mental Status: Agitated, Anxious, Restless Vital Signs Temp Pulse Resp BP Pulse Ox 97.7 F L 71 16 105/67 100 11/11/18 09:05 11/11/18 09:05 11/11/18 09:05 11/11/18 09:05 11/10/18 14:00 Oxygen Delivery Method Room Air Weight: 179 lb 10.828 oz Body Mass Index (BMI) 28.1 Intake and Output for Last 24 Hours 11/09/18 11/10/18 11/11/18 23:59 23:59 23:59 Intake Total 1000 / 1000 Balance 1000 / 1000 Medical Necessity - Tobacco Use Smoking Status: Current every day smoker Tobacco Use: Cigarettes Assessment/Plan All Active Problems NSTEMI (non-ST elevated myocardial infarction) (Resolved) 1. Acute opioid withdrawal, polysubstance abuse-medical stabilization per protocol. Urine tox screen positive for opiates, amphetamines, methamphetamine. BMP with mild hypokalemia. Patient plans on inpatient treatment facility at discharge. 2. Right hand cellulitis-Bactrim and Keflex. Patient was recently prescribed these and did not take them. 3. Tobacco dependence-encourage smoking cessation. Nicotine replacement patch. 4. History of [place], related to cocaine use-EKG without acute changes. Patient denies chest pain. 5. History of CVA, per patient report-chronic minimal left-sided weakness. 6. History of hepatitis C DVT prophylaxis-not indicated, low risk This patient was seen by Sada Webb NP-C under the supervision of Dr. Cottrell. <Deedee Cottrell - Last Filed: 11/11/18 11:55> - Physical Exam Vital Signs Temp Pulse Resp BP Pulse Ox 97.7 F L 71 16 105/67 100 11/11/18 09:05 11/11/18 09:05 11/11/18 09:05 11/11/18 09:05 11/10/18 14:00 Oxygen Delivery Method Room Air Weight: 81.5 kg Body Mass Index (BMI) 28.1 Intake and Output for Last 24 Hours 11/09/18 11/10/18 11/11/18 23:59 23:59 23:59 Intake Total 1000 / 1000 Balance 1000 / 1000 Assessment/Plan This patient was seen in conjunction with Sada Webb TUBE AND MANIFOLD BUILDER. I have independently interviewed and examined the patient and reviewed pertinent historical, laboratory, and other data. Please refer to her note for patient's presentation, findings, and recommendations. Patient was seen and examined. Sleeping at the time of exam. Reportedly rude to staff. Vitals were reviewed -stable Physical Exam: Gen:Appears comfortable, not pale, not jaundiced, alert oriented x3 CVS:HS I +II, regular, no murmurs RESP: Diminished at lung bases GI: Full, firm, nontender, no ballotable organs EXT:No edema, right hand cellulitis looks improved, started on Bactrim and Keflex Meds reviewed ASSESSMENT: 1. Acute opioid withdrawal 2. Polysubstance use 3. Hypokalemia, resolved 4. Nicotine dependence 5. Right hand cellulitis 6. H/o ID/CVA 7. Chronic Hep C Plan: Continue per [facility] protocol Complete course of antibiotics DC tomorrow am Code Visit Inpatient E&M: 42966 Subs Hosp L2
--- NOTE | 2018-11-11 11:40 | PCM.DC ---
- Discharge Diagnoses Current Active Problems: Current Active and Chronic Problems Hepatitis C (Chronic) Tobacco dependence (Chronic) Acute opioid withdrawal, polysubstance abuse Right hand cellulitis History of myocardial infarction You will use the following diet at home:: No restrictions Discharge Activity: Return to Normal Activity Allergies/Adverse Reactions: Allergies naproxen [From Naprosyn] Adverse Reaction (Verified 10/28/18 00:23) Nausea Penicillins Adverse Reaction (Verified 10/28/18 00:23) Nausea Medications to take at Discharge Cephalexin [Keflex] 500 mg PO Q6 #20 capsule 11/11/18 Smz/Tmp Ds [Bactrim Ds] 1 tablet PO BIDCM #10 tablet 11/11/18 The following prescriptions were given: Cephalexin [Keflex] 500 mg PO Q6 #20 capsule Smz/Tmp Ds [Bactrim Ds] 1 tablet PO BIDCM #10 tablet Primary Care Physician: Evangelista Carlton MD [Primary Care Provider] - Please follow up with your Primary Care Physician in: 1 Week Test Results: Test results from this visit will be discussed in further detail at your follow-up appointment, if applicable. Please Follow Up With: [facility] When: Following discharge Proposed Discharge Date: 11/12/18
--- NOTE | 2018-11-11 15:10 | NURSING ---
pt ya was walking down hallway saying I don't deserve this, you need to treat me with more respect, I'm leaving. pt was following her closely without any personal belongings. they were verbally aggressive to each other in the lobby. attempting to verbally deescalate situation. pt verbally aggressive to this RN stating mind you own d business, you're not helping. asked the ya if she needed help. she got on the elevator and the pt stood in the elevator doors, preventing the doors from closing. pt stood there long enough that elevator began alarming and the doors started closing. pt squeezed through doors and elevator left floor. Vika and Maria Elena took other elevator down to ground floor and this RN returned to pt room to gather his belongings. pt returned to room saying I never left the unit, I didn't leave, I didn't get off the elevator. tried to had belongings to pt, including his cigarette and it corporate recruiter, but he would not take them, saying get your hand off my fing things. Security, [facility], unit managers, and school supervisor all to unit and speaking with pt who is continuing to refuse to leave. notified and order placed for discharge AMA. pt antibiotics for DC were given to pt.
--- NOTE | 2018-11-11 15:18 | DS.PCM_ITS ---
<Sada Webb - Last Filed: 11/11/18 15:19> Discharge Date and Diagnosis Date of Admission: 11/09/18 Date of Discharge: 11/11/18 - Primary Discharge Diagnosis 1. Acute opioid withdrawal, polysubstance abuse 2. Right hand cellulitis 3. Tobacco dependence 4. History of SD, related to cocaine use 5. History of CVA, per patient report 6. History of hepatitis C - Secondary Discharge Diagnosis Chronic Problems Hepatitis C (Chronic) Tobacco dependence (Chronic) Opiate dependence (Chronic) Hospital Course and Treatment Operations: None Procedures: None Summary of Care Provided: The patient is a 28 year old M admitted 11/09/2018 due to opioid withdrawal. 1. Acute opioid withdrawal, polysubstance abuse-Urine tox screen positive for opiates, amphetamines, methamphetamine. Medical stabilization per protocol although patient did not complete full program. Patient was suspected to switch clothing with twin sibling to go outside and smoke per RN which patient denies. Patient then noted to be verbally abusive to his significant other, following her into the elevator and leaving the floor which is against new vision code of conduct. Patient discharged AGAINST MEDICAL ADVICE. 2. Right hand cellulitis-Bactrim and Keflex. Patient was recently prescribed these and did not take them. 3. Tobacco dependence-encourage smoking cessation. 4. History of SD, related to cocaine use-EKG without acute changes. 5. History of CVA, per patient report-chronic minimal left-sided weakness. 6. History of hepatitis C General: Alert, Oriented x3, Cooperative HEENT: Atraumatic, PERRLA, EOMI, Normocephalic Neck: Supple, No JVD, Negative Carotid Bruits Lungs: Clear to auscultation, Normal air movement Cardiovascular: Regular rate, Regular Rhythm, Normal S1, Normal S2, No murmurs Abdomen: Bowel Sounds Present, Soft, Non Tender, Non-Distended Extremities: No clubbing, No cyanosis, No edema, Capillary Refill Less than 3 Seconds Skin: - - Right hand ulnar side healing ulceration, medial back of neck healing ulcerations, left face open ulceration. Musculoskeletal: No Tenderness to Palpation of Joints or Extremities Neurological: Cranial nerves II-XII grossly intact, Neuro grossly intact Psych/Mental Status: Agitated, Anxious, Restless Patient seen and examined prior to discharge. Physical assessment as noted above. Patient signed out AMA due to non-compliance with new vision and facility policies. This patient was seen by ERIN Brown under the supervision of Dr. Cottrell. - Physical Exam Vital Signs Temp Pulse Resp BP Pulse Ox 97.7 F L 71 16 105/67 100 11/11/18 09:05 11/11/18 09:05 11/11/18 09:05 11/11/18 09:05 11/10/18 14:00 Oxygen Delivery Method Room Air Weight: 179 lb 10.828 oz Body Mass Index (BMI) 28.1 Intake and Output for Last 24 Hours 11/09/18 11/10/18 11/11/18 23:59 23:59 23:59 Intake Total 1000 / 1000 Balance 1000 / 1000 Discharge Activity: Return to Normal Activity Home Medications: Medications to take at Discharge Cephalexin [Keflex] 500 mg PO Q6 #20 capsule 11/11/18 Smz/Tmp Ds [Bactrim Ds] 1 tablet PO BIDCM #10 tablet 11/11/18 Following Prescrptions Were Given to Patient: Cephalexin [Keflex] 500 mg PO Q6 #20 capsule Smz/Tmp Ds [Bactrim Ds] 1 tablet PO BIDCM #10 tablet Primary Care Physician: Evangelista Carlton MD [Primary Care Provider] - Disposition: Against Medical Advice Minutes spent on discharge:: 35 Patient Condition:: Stable Medical Necessity - Tobacco Use Smoking Status: Current every day smoker Tobacco Use: Cigarettes Meaningful Use Info Meaningful Use Diagnoses (Choose all that apply): None applicable <Deedee Cottrell - Last Filed: 11/11/18 15:27> Discharge Date and Diagnosis - Secondary Discharge Diagnosis Chronic Problems Hepatitis C (Chronic) Tobacco dependence (Chronic) Opiate dependence (Chronic) Hospital Course and Treatment None Summary of Care Provided: The patient is a 28 year old M past medical history of polysubstance abuse comes in with symptoms suggestive of opioid withdrawal for medical stabilization. Patient did not complete the full program. He was noncompliant with instructions on the floor. It was suspected to have sleep including 20 sibling to go outside and smoke. Refused nicotine replacement under fluoroscopy. Patient was reportedly verbally abusive to his significant other and left the floor AGAINST MEDICAL ADVICE. He will need to complete his Bactrim and Keflex. Subjective: Patient has been verbally abusive. He did not comply with instructions on the floor. Signed out AGAINST MEDICAL ADVICE. - Physical Exam General: Alert, Oriented x3, Cooperative, No apparent distress HEENT: Atraumatic, PERRLA, EOMI, Normocephalic Oral: Moist Mucosa Neck: Supple, No JVD, Negative Carotid Bruits Lungs: Clear to auscultation, Normal air movement Cardiovascular: Regular rate, Regular Rhythm, Normal S1, Normal S2, No murmurs Abdomen: Bowel Sounds Present, Soft, Non Tender, Non-Distended, No Hepato- splenomegaly Extremities: No edema, - - Erythema of the hand is much improved Skin: No rashes, No breakdown Musculoskeletal: No Tenderness to Palpation of Joints or Extremities Lymphatic: No Cervical, Supraclavicular, or Inguinal Adenopathy Neurological: Cranial nerves II-XII grossly intact Psych/Mental Status: Normal Affect, Appropriate Vital Signs Temp Pulse Resp BP Pulse Ox 97.7 F L 71 16 105/67 100 11/11/18 09:05 11/11/18 09:05 11/11/18 09:05 11/11/18 09:05 11/10/18 14:00 Oxygen Delivery Method Room Air Weight: 81.5 kg Body Mass Index (BMI) 28.1 Intake and Output for Last 24 Hours 11/09/18 11/10/18 11/11/18 23:59 23:59 23:59 Intake Total 1000 / 1000 Balance 1000 / 1000 Code Visit Inpatient E&M: 40744 Disch Hosp
--- NOTE | 2018-11-11 15:31 | NURSING ---
WHEN THIS NURSE WAS GETTING READY TO GO INTO PTS ROOM DURING ROUNDS, HEARD PT AND SIG OTHER RAISING THEIR VOICED. SHE WALKED OUT SAYING SHE WAS NOT SAYING, HE FOLLOWED HER DOWN THE [place] INTO THE ELEVATOR. (STAFF WAS AT THE ELEVATOR TRYING TO TALK HIM BACK TO HIS ROOM) THE ELEVATOR WAS CLOSING, PT JUMPED IN. IT LOOKS THOUGH PT CAME BACK UP TO ROOM AFTER SIG OTHER GOT OUT ON GROUND FLOOR. SECURITY HAD BEEN CALLED DURING ALL OF THIS. JOSE, NURSE FINANCE ADVISOR WAS IN ROOM TALKING WITH PT. PT HAD TO BE ASKED MULTIPLE TIMES TO PUT PHONE DOWN SO EVERYONE COULD TALK. PT SITTING ON BED, UNSURE IF HE IS TALKING ON PHONE OR TO STAFF, RUDE AND DISRESPECTFUL. DR HOOPER DC'D PT. PT WAS THEN TRYING TO CALL FOR RIDE, SIG OTHER WAS NOT ANSWERING SO THIS NURSE OFFERED TO CALL FROM HOSPITAL PHONE. PT AGREEABLE AND GAVE CATHRINES PHONE #. CONTACTED DUSTIN AFTER 2ND ATTEMPT, TOLD HER PT HAS BEEN DC'D, SHE STATED SHE WOULD NOT COME PICK HIM UP.
--- OUTSIDE RECORDS SUMMARY | 2018-12-27 00:46 | XMS RPT_ITS ---
:1990 Author Organization [place] Support Name Relationship Address Phone CORINNA MORALES Unavailable Unavailable + CAT Unavailable [address] + [place] [address] VASILIY CORADO Unavailable [address] + [address] [place] [address] CAT Unavailable [address] + [place] [address] VASILIY CORADO Unavailable [address] + [address] [place] [address] CAT Unavailable [address] + [place] [address] VASILIY CORADO Unavailable [address] + [address] [place] [address] CAT Unavailable [address] + [place] [address] VASILIY CORADO Unavailable [address] + [address] [place] [address] CAT Unavailable [address] + [place] [address] VASILIY CORADO Unavailable [address] + [address] [place] [address] CAT Unavailable [address] + [place] [address] VASILIY CORADO Unavailable [address] + [address] [place] [address] CAT Unavailable [address] + [place] [address] VASILIY CORADO Unavailable [address] + [address] [place] [address] CAT Unavailable [address] + [place] [address] [employer] Unavailable [address] + [address] [place] [address] CORINNA MORALES Unavailable [address] + [place] [address] [employer] Unavailable [address] + [address] [place] [address] CORINNA MORALES Unavailable [address] + [place] [address] MYRON CORADO Unavailable [address] + [place] [address] MYRON CORADO Unavailable [address] [place] [address] NOT GIVEN Unavailable Unavailable Unavailable CORINNA MORALES Unavailable [address] + [place] [address] CLAUDIA Unavailable [address] + [place] [address] MYRON CORADO Unavailable [address] + [place] [address] MYRON CORADO Unavailable [address] [place] [address] NOT GIVEN Unavailable Unavailable Unavailable CORINNA MORALES Unavailable [address] + [place] [address] CLAUDIA Unavailable [address] + [place] [address] MCDON03 Unavailable [address] + [place] [address] JADYN MILLAN Unavailable Unavailable + Care Team Providers Name Role Phone Semenregina, Zeinab Admitting Unavailable Sementi, Zeinab Referring Unavailable Evangelista Carlton Primary Care Unavailable Paintsil, [place] Attending Unavailable Sementi, Zeinab Admitting Unavailable Sementi, Zeinab Referring Unavailable Evangelista Carlton Primary Care Unavailable Sementi, Zeinab Consulting Unavailable Sementi, Zeinab Attending Unavailable Sementi, Zeinab Admitting Unavailable Sementi, Zeinab Referring Unavailable Elderbrock, Evangelista Primary Care Unavailable Paintsil, [place] Consulting Unavailable Paintsil, [place] Attending Unavailable Sementi, Zeinab Admitting Unavailable Sementi, Zeinab Referring Unavailable Elderbrock, Evangelista Primary Care Unavailable Paintsil, [place] Consulting Unavailable Paintsil, [place] Attending Unavailable Justin, [place] Attending Unavailable Sementi, Zeinab Referring Unavailable Ungur, Remus Attending Unavailable Cebul III, Yashira Primary Care Unavailable Cebul III, Yashira Primary Care Unavailable Niyah English Attending Unavailable Germain Oates Attending Unavailable Elderbrock, Evangelista Primary Care Unavailable Elderbrock, Evangelista Primary Care Unavailable Talha Zuñiga Attending Unavailable Elderbrock, Evangelista Primary Care Unavailable AVINASH ABREU Attending Unavailable Elderbrock, Evangelista Primary Care Unavailable Talha Zuñiga Attending Unavailable Elderbrock, Evangelista Primary Care Unavailable Donnell Espinoza Attending Unavailable [employer] Attending Unavailable Emigdio Gayle Primary Care Unavailable MERLIN BRANDT, DR. CARR Primary Care Unavailable PERCY HOSKINS MD Attending Unavailable MERLIN BRANDT, DR. CARR Referring Unavailable MAIN GUZMAN (BUILDING CONSULTANT) Attending Unavailable MAIN GUZMAN (BUILDING CONSULTANT) Referring Unavailable MAIN GUZMAN (BUILDING CONSULTANT) Attending Unavailable [facility], SURESH Attending Unavailable [facility], [facility] Attending Unavailable Helen Starr, Emergency Physicians Attending Unavailable OBDULIA BAKER DO Admitting Unavailable DIDOBDULIA SAAVEDRA DO Attending Unavailable OBDULIA BAKER DO Primary Care Unavailable CEBUL, YASHIRA III Consulting Unavailable CEBUL, YASHIRA III Referring Unavailable PROVIDER, UNKNOWN Consulting Unavailable DR PERCY GARCIA Admitting Unavailable DR PERCY GARCIA Attending Unavailable CEBUL, YASHIRA III Referring Unavailable DR PERCY GARCIA Primary Care Unavailable CEBUL, YASHIRA III Consulting Unavailable PROVIDER, UNKNOWN Consulting Unavailable PROBLEMS PROBLEMS DATE TYPE CONDITION / CODE ATTENDING STATUS SOURCE 12/11/2018 Unknown S39.92XA - Talha Zuñiga Active [place] Unspecified injury Community of lower back, Hospital initial encounter / Repository S39.92XA(ICD-10) 12/07/2018 Active Other psychoactive [facility], Active [place] substance abuseRUST Main uncomplicated / [place] F19.10(ICD-10) Repository 12/07/2018 Active Acute stress KAM[facility]AMPAT[facility], Active [facility] F[facility].0([facility]-10) [place] Repository 12/07/2018 Admitting Unknown / [employer] Active [place] [facility] diagnosis UNK(Unknown) Health System Repository 09/08/2018 Active Unknown / MAIN GUZMAN Active [facility] UNK(Unknown) (BUILDING CONSULTANT) [facility] Main [place] Repository PROCEDURES PROCEDURES No Procedure Records FoundRESULTS RESULTS EMERGENCY DEPARTMENT Observed: 12/18/2018 Status: F Source: [place] SUMMARY 12:13 AM [facility] REPOSITORY [facility] Medical Records Department [address] [place] [address] Emergency Department Summary 12/17/18 2236 MR#: [id number] Acct: [id number] Name: VIGNESH MORALES Rep #: [id number] : 1990 28 From: Donnell Espinoza MD PCP: Evangelista Carlton MD Status: DEP ER - ER Visit Summary Date of Service: 12/17/18 Chief Complaint: Unresponsive History of Present Illness: The patient is a [address] Carlton. Patient does have a history of polysubstance abuse. He was found in the street unresponsive and responded to a single dose of Narcan and is now awake. He reports that he has not used heroin for 2 days. His only complaint is that he had 3 episodes of diarrhea in the past hour. Physical Examination: Vitals: 98.0, 165/102, 135, 22, 90% on room air which is not hypoxic. General: Well-nourished and well-developed. Head: Normocephalic atraumatic. Neck: Supple, no lymphadenopathy. No JVD. Nontender. Cardiovascular: Regular rate and rhythm. No murmurs. Respiratory: No respiratory distress. Clear to auscultation bilaterally. Abdominal: Soft, nontender, nondistended, normal bowel sounds. No guarding, rebound, or peritoneal signs. Back: Nontender. Extremities: Nontender, no edema. Skin: Normal color, no rash. Multiple track lam on his arms bilaterally. There is no evidence of infection. No erythema, induration, or fluctuance. Neurologic: Alert and oriented 3. Cranial nerves II through XII are intact. Normal strength and sensation. Psych: Normal affect. Emergency Department Course and Treatment: Patient was observed over the course of an hour in the emergency department. He is remained stable. Treatment Plan: Patient be discharged instructions to follow- up with 180 as soon as possible. Disposition: To home in improved and stable condition. Impression: 1. Opiate overdose. This note was generated with Sekoia dictation software. It may contain incorrect words, spelling, and punctuation that were not noted in review of the chart prior to signing ED Disposition - Plan for ED Patient: Disposition: Home or Assisted Living Chief Complaint: Overdose Instructions: ED Overdose Opiate Referrals: EIGHTY,ONE [STAFF PHYSICIAN] - As soon as possible What to do if you have Problems For any increased pain, shortness of breath, bleeding, nausea or vomiting, chest pain, or any unexpected problems, contact your Primary Care Provider. Call [facility] ([phone]) or report to the closest Emergency Room. Call 911 if necessary. 12/18/18 0013 <Electronically signed by Donnell Espinoza MD> Date Donnell Espinoza MD Cosigner Signature (If Indicated): Date CC: Evangelista Carlton MD DISCHARGE INSTRUCTION Observed: 12/09/2018 Status: F Source: [place] 1:26 AM [facility] REPOSITORY [facility] Medical Records Department [address] [place] [address] Discharge Instruction 12/09/18 0124 MR#: [id number] Acct: [id number] Name: VIGNESH MORALES Rep #: [id number] : 1990 28 From: Talha Zuñiga MD PCP: Evangelista Carlton MD Status: REG ER ED Disposition - Plan for ED Patient: Chief Complaint: Fall Instructions: ED Contusion Back, ED Sprain Strain Lumbar Prescriptions: Cyclobenzaprine [Flexeril] 10 mg PO TID PRN #20 tab PRN Reason: Muscle Spasm Referrals: Evangelista Carlton MD [Primary Care Provider] - What to do if you have Problems For any increased pain, shortness of breath, bleeding, nausea or vomiting, chest pain, or any unexpected problems, contact your Primary Care Provider. Call [facility] ([phone]) or report to the closest Emergency Room. Call 911 if necessary. 12/09/18 0126 <Electronically signed by Talha Zuñiga MD> Date Talha Zuñiga MD Cosigner Signature (If Indicated): Date CC: Evangelista Carlton MD EMERGENCY DEPARTMENT Observed: 12/09/2018 Status: F Source: [place] SUMMARY 1:24 AM [facility] Medical Records Department [address] [place] [address] Emergency Department Summary 12/09/18 0122 MR#: [id number] Acct: [id number] Name: VIGNESH MORALES Rep #: [id number] : 1990 28 From: Talha Zuñiga MD PCP: Evangelista Carlton MD Status: REG ER - ER Visit Summary Date of Service: 12/09/18 Chief Complaint: Fall History of Present Illness: The patient is a 28 M who states that he fell off of the top bunk while trying to get down. He slipped. He fell onto his lower back. He states that he feels like he pulled something in his lower back. No paresthesias or weakness. No head injury or loss of consciousness. No loss of bowel or bladder control. No radiation of pain into legs. Physical Examination: Afebrile heart rate 105 vitals otherwise normal Heart regular rate and rhythm Lungs are clear Abdomen soft and nontender Patient does have paraspinal lumbar tenderness mostly in the left Normal strength and sensation of the lower extremities with 5 out of 5 dorsiflexion, plantarflexion, extensor hallucis longus Test Results: Lumbar x-rays show no fracture Emergency Department Course and Treatment: Patient lists an allergy to NSAIDs. He was advised to use Tylenol. He was also given a prescription for Flexeril. He understands to return for new or worsening symptoms and was discharged. Treatment Plan: [] Disposition: Discharge Impression: Back contusion Lumbar strain This note was generated with Sekoia dictation software. It may contain incorrect words, spelling, and punctuation that were not noted in review of the chart prior to signing ED Disposition - Plan for ED Patient: Chief Complaint: Fall Referrals: Evangelista Carlton MD [Primary Care Provider] - What to do if you have Problems For any increased pain, shortness of breath, bleeding, nausea or vomiting, chest pain, or any unexpected problems, contact your Primary Care Provider. Call [facility] ([phone]) or report to the closest Emergency Room. Call 911 if necessary. 12/09/18 0124 <Electronically signed by Talha Zuñiga MD> Date Talha Zuñiga MD Cosigner Signature (If Indicated): Date CC: Evangelista Carlton MD LUMBAR SPINE 2 OR 3 Observed: 12/09/2018 Status: F Source: [place] VIEWS 12:29 AM [facility] REPOSITORY [facility] Imaging Services [address] [place] [address] Lumbar Spine 2 or 3 Views MR#: [id number] Acct: [id number] Name: VIGNESH MORALES Rep #: [id number] : 1990 M 28 From: Jose Navarrete MD PCP: Evangelista Carlton MD Status: REG ER Study: Lumbar Spine 2 or 3 Views Date of Exam: 12/09/18 Exam# [id number] Ordering Dr: Talha Zuñiga MD HISTORY: FELL OUT OF TOP BUNK C/O LBP COMPARISON: 01/08/2014 FINDINGS: XR Spine Lumbar 3 Views: Minor S-shaped thoracolumbar scoliosis with the lumbar convexity to the left. Lumbar vertebra are normal in height. No fracture or suspicious bony lesion. Lumbar disc space heights are preserved. The posterior elements are intact. No spondylolisthesis. SI joints are preserved. RAD/Lumbar Spine 2 or 3 Views IMPRESSION: 1. No fracture or acute osseous abnormality. 2. Minor scoliosis, unchanged. at 0114 Reported and signed by: Jose Navarrete MD Electronically Signed: Jose Navarrete, at 1:13 EST Tel , Service support , CC: Talha Zuñiga MD; Evangelista Carlton MD Gas Appliance Servicer: Signed ED NOTE Observed: 12/07/2018 Status: COMPLETED Source: [place] 6:48 PM [facility] [place] REPOSIT[facility] HNO ID: [id number] Author: Yoli (Rn) YA Duron Service: (none) Author Type: Registered Nurse Type: ED Notes Filed: 12/07/2018 6:48 PM Note Text: EKG completed previously at 1425 CONSULT Observed: 12/07/2018 Status: COMPLETED Source: [place] 5:14 PM [facility] REPOSITORY HNO ID: [id number] Author: Zachary Cobian Service: Psychiatry Author Type: Resident Type: Consults Filed: 12/07/2018 6:21 PM Note Text: PSYCHIATRY EMERGENCY DEPARTMENT CONSULT SERVICE DATE: December 07, 2018 SERVICE TIME: 5:14 PM Assessment/Plan Vignesh Morales is a 28 year old male with past psychiatric history of opioid abuse, ADHD who presented for admission secondary to acute anxiety after leaving his rehab facility today. He endorsed feelings of severe depression to ED staff with vague mention of SI. On my evaluation he denies any SI and he does not endorse any symptoms of depression. He admits to coming to the ED for secondary gain of obtaining transportation back to his home in [place]. He has a specific and reasonable plan for continuing his CD treatment. Psychiatrically clear for discharge home. DIAGNOSIS: 1. PRIMARY: Opioid Use Disorder GAF: 55 -60-51 Moderate symptoms or moderate difficulty in social, occupational or school functioning. PLAN: - ED SW to see patient to offer resources including cab voucher. - Patient provided with substance abuse and [facility] resources list. - Patient will not be admitted to inpatient psychiatry. - Differ further management to ED. Disposition: Vignesh Morales Patient will follow up with [facility] counseling and his suboxone provider. Medication Treatment: None prescribed - will follow up with primary psychiatrist SUB Vignesh Morales is a 28 year old unemployed male who lives alone in [place] who presents to the Emergency Department today with Anxiety. This case was discussed with Dr. Maeve Villarreal Subjective HPI: Vignesh Morales presents to the emergency department with a primary complaint of acute depression and anxiety. -Was at a detox center. Completed 7 day suboxone detox. -Was supposed to go to a rehab today, but didn't like the rehab when he arrived. Too many people. He was told it was a 1 month program, but actually a 9 month program. -Apologizes for wasting our time. Says he is not depressed, not suicidal. Just didn't have anywhere else to go. I got these guys convinced I'm about kill myself, but it's not the case. -Has an apartment in [place], wants to get back home. Mom and sister nearby. -Plans to go to a [facility] counseling center in [place] tomorrow to look into further CD treatment options. Also on a wait-list for another rehab. There is a rehab in [place] he liked before. -Just started seeing a doctor in [place] for suboxone maintenance, has a prescription at home to take to the pharmacy. Heroin abuse for 12 years, recently had 22 months sober. Relapsed in October. Denies other drug or alcohol abuse. Utox today is negative. Treated for depression years ago, not recently. Doesn't feel depressed now. Was going to AA meetings daily until October, has a sponsor. Does Patient Have Any Suicidal Ideations: No PSYCHIATRIC REVIEW OF SYMPTOMS: See HPI MEDICAL REVIEW OF SYSTEMS: GENERAL: Negative for malaise, significant weight loss and fever. HEENT: No changes in hearing or vision, no nose bleeds or other nasal problems. RESPIRATORY: Negative for cough, wheezing and shortness of breath. CARDIOVASCULAR: Negative for chest pain, leg swelling and palpitations. GI: Negative for abdominal discomfort, blood in stools or black stools. : Negative for dysuria, frequency and incontinence. MUSCULOSKELETAL: Negative for joint pain or swelling, back pain, and muscle pain. SKIN: Negative for lesions, rash, and itching. HEMATOLOGY/LYMPHOLOGY Negative for prolonged bleeding, bruising easily, and swollen nodes. ENDOCRINE: Negative for cold or heat intolerance, polyuria, polydipsia and goiter. NEURO: Negative for headaches, syncope, seizures and paralysis. PSYCHIATRIC HISTORY: Diagnosis: ADHD and Major Depressive Disorder Current Psychiatrist: None currently Current Therapist: None currently Current Manager Supply Chain Planning: None Last Hospitalization: Yes, years ago for depression at [facility] Hx of Suicide Attempts: Never Previous Discontinued Psychiatric Med Trials: Adderall XR, trazodone, seroquel PAST MEDICAL HISTORY: PAST MEDICAL HISTORY Diagnosis Date - Abdominal pain, unspecified site 10/01 10/01 EGD multiple studies all negative per Dr. 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 - History of hepatitis C 11/11/2018 - Infectious mononucleosis with hepatitis and axillary lymph node enlargement - Major depressive disorder Current Meds: No current facility-administered medications on file prior to encounter. Current Outpatient Prescriptions on File Prior to Encounter: guanFACINE (TENEX) 1 mg tablet Take 1 tablet by mouth once daily. Medication Adherence: n/a OARRS: No controlled substances since 2016. ALLERGIES: ALLERGIES Allergen Reactions - Ibuprofen GI Upset - Naproxen GI Upset - Penicillin G GI Upset SUBSTANCE ABUSE HISTORY: ETOH: Denies. Marijuana: Denies. Cocaine: Denies. Opioids: 12 years of heroin abuse, relapsed October Tobacco: Denies. OTHER SUBSTANCE USE: Denies SOCIAL HISTORY: Education: High school Employment: Unemployed, not seeking work. Relationships: The patient currently is single, never . Children: Yes, (1) minors - does not have custody - lives with mother Current Supports: Include parent(s) and siblings. Legal Hx: Denies Evangelical/Spirituality: Cheondoism FAMILY HX: Chemical dependency (Brother - heroin) Objective MENTAL STATUS EXAMINATION: Alertness: Alert Orientation AND Cognition: Oriented to Person, Place, Time and Situation Appearance: Hygiene is fair, in hospital gown. Demeanor: Tense Eye Contact: Good Mood: Anxious Affect: Full Speech: Within normal limits with regard to rate, tone and volume Thought Content: The patient displays thought content appropriate to the interview. Thought Process: Goal directed Perception: No hallucinations Abstract Reasoning: Abstract reasoning was good Suicidal or Homicidal Ideation: Patient denies any suicidal or homicidal ideation, plan or intent at this time. Intelligence: Average Insight: Fair, externalization Judgment: Limited PHYSICAL EXAM: VITALS: 12/07/18 1418 BP: 128/83 Pulse: (!) 96 Resp: 18 Temp: 36.3 ?C (97.3 ?F) TempSrc: Oral SpO2: 98% Weight: 86.2 kg (190 lb) Height: 170.2 cm (5' 7) GENERAL: Alert, no distress, cooperative NEURO: Cranial Nerves: ? II: PERRL ? III, IV, : EOM full, no nystagmus ? V: Facial sensation normal ? VII: Normal and symmetrical facial strength ? VIII: Symmetrical hearing bilaterally ? IX, X: Normal, midline palatal rise ? XI: Symmetric shrug, and head rotation ? XII: Tongue midline, mobile no tongue fasiculations MUSCULOSKELETAL: Normal muscle strength GAIT: Normal DATA: LABS: CBC: Recent Labs 12/07/18 1510 WBC 8.58 HB 15.5 HCT 45.1 PLT 194 MCV 87.2 RDWCV 13.2 NEUTP 64.7 ABSNEUT 5.55 LYMPHP 22.5 MONOP 11.7 EODINP 0.9 COAG: No results for input(s): APTT, INR in the last 168 hours. BMP: Recent Labs 12/07/18 1510 GLUC 97 NA 139 K 3.9 CHLOR 99 CO2 25 ANION 15 BUN 10 CREAT 0.66* CHEM: Recent Labs 12/07/18 1510 CA 9.6 HEPATIC: No results for input(s): ALKPHOS, ALT, AST, TBILI, LIPASE in the last 168 hours. URINALYSIS:No results for input(s): PH, SPGR, UGLUC, UBILI, UKET, UHB, UPROT, UROBIL, UWBC, SSA in the last 168 hours. Invalid input(s): NITR No results for input(s): CK, CKMB, TROPT in the last 168 hours. TOXICOLOGY: RESULTS FOR THE PAST 72 HOURS: Lab Results Component Value Date UAMPH Negative 12/07/2018 UBARB2 Negative 12/07/2018 UBENZ Negative 12/07/2018 UQBUPRE <20 08/24/2018 UQNORBUP <20 08/24/2018 UCOC2 Negative 12/07/2018 UQCANN <16 08/24/2018 UOPI Negative 12/07/2018 UOXYC Negative 12/07/2018 UPCP Negative 12/07/2018 UTHC Negative 12/07/2018 UETOH <11 12/07/2018 SIGNATURE: Zachary Cobian MD, PGY-2 PATIENT NAME: Vignesh Morales DATE: December 07, 2018 TIME: 5:14 PM PAGER/CONTACT #: [phone] ED NOTE Observed: 12/07/2018 Status: COMPLETED Source: [place] 4:55 PM [facility] REPOSIT[facility] HNO ID: [id number] Author: Germain Barfield DO Service: Emergency Medicine Author Type: Resident Type: ED Notes Filed: 12/07/2018 6:19 PM Note Text: Patient care has been accepted from Dr. Oglesby as of 4:55 PM. We discussed the patient's course, condition, and plan. 12/07/18 1418 BP: 128/83 Pulse: (!) 96 Resp: 18 Temp: 36.3 ?C (97.3 ?F) TempSrc: Oral SpO2: 98% Weight: 86.2 kg (190 lb) Height: 170.2 cm (5' 7) Clinical Impressions as of Dec 07 1817 Polysubstance abuse (HCC) Acute stress reaction SUMMARY: 28 year old male with Hx of depression, heroin abuse, p/w left inpatient suboxone facility today. Came here from there. Making passive suicidal mentions, but denies SI. Concerned for withdrawal. Has suboxone at home, in [place]. TO DO: F/u social work. Psych to see if can't get home INTERVAL PROGRESS: Social work getting patient to [facility] with cab voucher. Psych saw patient. Denying SI, more anxious than depressed. Admits he came here because he could not get to [place], and did not know where else to go. Patient agreeable to discharge. Thank you Germain Santa DO Emergency Medicine PGY-2 ED NOTE Observed: 12/07/2018 Status: COMPLETED Source: [place] 4:49 PM [facility] REPOSITORY HNO ID: [id number] Author: Ja AnthonyRn) YA Bhagat Service: (none) Author Type: Registered Nurse Type: ED Notes Filed: 12/07/2018 4:49 PM Note Text: Bed: E12-05 Expected date: Expected time: Means of arrival: Comments: Carmen CASE MANAGEM Observed: 12/07/2018 Status: COMPLETED Source: [place] 4:39 PM [facility] REPOSITORY HNO ID: [id number] Author: Zeinab Ludwig) Alexis Service: Care Management Author Type: Forgeman Helper Type: Care Mgt Progress Note Filed: 12/07/2018 11:05 PM Note Text: CASE MANAGEMENT PROGRESS NOTE SERVICE DATE: 12/07/2018 SERVICE TIME: 10:24 PM Referral received from ED staff re: transportation back to [facility]. Pt has been evaluated by psychiatry and cleared for D/C. Pt is 28 year old male who came to the ED for anxiety. Pt reports he just completed a seven day suboxone detox treatment. Pt reports he completed the program today and was given options for transition to a sober house. Pt reports he decided to go to [facility] in [place]. Pt reports he was transported to [facility] today and pt reports he became anxious with the [facility] program and reports he was not aware of the program expectations and too crowded. Pt states he refuses to return to [facility] and is requesting to return to [place] where he resides and has a mother. Pt has been cleared for D/C. SW and pt called pt's mother who reported she could not transport pt home due to her inability to leave [place], due to her anxiety and she reports her is on 24 hour oxygen and unable to come to . Mother could not identify anyone to transport pt home. Mother would not purchase a [employer] ticket. SW attempted to arrange [employer] but was unsuccessful and [employer] trip to [place] was not for another 24 hours. Pt has no money with him. SW arranged transport through [facility] with cost to $161.00. Discussed with psychiatry and Dr. Justice. SIGNATURE: Zeinab WEI, LINK TRAINER TEACHER PATIENT NAME: Vignesh Morales DATE: December 07, 2018 TIME: 10:24 PM PAGER/CONTACT #: [phone] ED PROV NOTE Observed: 12/07/2018 Status: COMPLETED Source: [place] 4:39 PM [facility] REPOSITORY HNO ID: [id number] Author: Suresh Justice MD Service: Emergency Medicine Author Type: Physician Type: ED Provider Notes Filed: 12/08/2018 12:39 AM Note Text: Registration issues. Please see separate ED encounter for my note. MD Suresh Pretty MD 12/08/18 0039 ED NOTE Observed: 12/07/2018 Status: COMPLETED Source: [place] 4:34 PM [facility] RE[facility] HNO ID: [id number] Author: Ja AnthonyRn) YA Bhagat Service: (none) Author Type: Registered Nurse Type: ED Notes Filed: 12/07/2018 4:34 PM Note Text: Bed: E12-05 Expected date: Expected time: Means of arrival: Comments: Carmen ED NOTE Observed: 12/07/2018 Status: COMPLETED Source: [place] 3:48 PM [facility] HNO ID: [id number] Author: Roni (Rn) YA Garrison Service: Emergency Medicine Author Type: Registered Nurse Type: ED Notes Filed: 12/07/2018 3:49 PM Note Text: Pt presented to ED for SI and depression. Pt states I have been having thoughts of hurting myself. Denies plan. Pt states I also have been depressed. Pt states Im lost, I'm just trying to get home. EKG completed in triage. All belongings taken and placed in locker. NAD noted at this time. CBC AND DIFFERENTIAL Collected: 12/07/2018 Status: F Source: [place] 3:10 PM [facility] RE[facility] TYPE CODE TESTS RESULT OUT OF REFERENCE UNITS RANGE LAB WBC 3.70-11.00 k/uL WBC 8.58 LAB RBC 4.20-6.00 m/uL RBC 5.17 LAB HGB 13.0-17.0 g/dL Hemoglobin 15.5 LAB HCT 39.0-51.0 % Hematocrit 45.1 LAB MCV 80.0-100.0 fL MCV 87.2 LAB MCH 26.0-34.0 pG MCH 30.0 LAB MCHC 30.5-36.0 g/dL MCHC 34.4 LAB RDWCV 11.5-15.0 % RDW-CV 13.2 LAB PLTCT 150-400 k/uL Platelet Count 194 LAB MPV 9.0-12.7 fL MPV 11.1 LAB ANEUT % Neut% 64.7 LAB AANEUT 1.45-7.50 k/uL Abs Neut 5.55 LAB ALYMP % Lymph% 22.5 LAB AALYMP 1.00-4.00 k/uL Abs Lymph 1.93 LAB AMONO % Blount% 11.7 LAB AAMONO <0.87 k/uL Abs Blount High 1.00 LAB AEOS % Eosin% 0.9 LAB AAEOS <0.46 k/uL Abs Eosin 0.08 LAB ABASO % Baso% 0.2 LAB AABASO <0.11 k/uL Abs Baso <0.03 LAB AUNRBC 0 /100 WBC NRBCs 0.0 LAB ABNRBC <0.01 k/uL Absolute nRBC <0.01 LAB DTYP DTYPE Auto Diff Performed By: #### CBCDIF, BMP #### [facility] [address] [place] [id number] BASIC METABOLIC PANL Collected: 12/07/2018 Status: F Source: [place] 3:10 PM [facility] RE[facility] TYPE CODE TESTS RESULT OUT OF REFERENCE UNITS RANGE LAB GLU 74-99 mg/dL Glucose 97 Result Comment: The [place] Diabetes Association (ADA) provides guidance for cutoff values for fasting glucose and random glucose. The ADA defines fasting as no caloric intake for at least 8 hours. Fas ting plasma glucose results between 100 to 125 mg/dL indicate increased risk for diabetes (prediabetes). Fasting plasma glucose results greater than or equal to 126 mg/dL meet the criteria for diagnosis of diabetes. In the absence of unequivocal hyperglycemia, results should be confirmed by repeat testing. In a patient with classic symptoms of hyperglycemia or hyperglycemic crisis, random plasma glucose results greater than or equal to 200 mg/dL meet the criteria for diagnosis of diabetes. Reference: Standards of Medical Care in Diabetes 2016, [place] Diabetes Association. Diabetes Care. 2016.39(Suppl 1). LAB BUN 9-24 mg/dL BUN 10 LAB CRET 0.73-1.22 mg/dL Creatinine Low 0.66 LAB NA 136-144 mmol/L Sodium 139 LAB K 3.7-5.1 mmol/L Potassium 3.9 LAB CL 97-105 mmol/L Chloride 99 LAB CO2 22-30 mmol/L CO2 25 LAB AGAP 9-18 mmol/L Anion Gap 15 LAB CA 8.5-10.2 mg/dL Calcium, Total 9.6 LAB GFRAA eGFR- Amer. >60 LAB GFRNAA . eGFR-All Other Races >60 Result Comment: eGFR (Estimated GFR) Units of measure: mL/min/1.73 meters squared eGFR is derived from the reexpressed MDRD Study equation using the following parameters: serum creatinine, age, gender and race. The creatinine assay has been calibrated to be traceable to IDMS. An eGFR <60 mL/min/1.73m2 for >3 months is consistent with chronic kidney disease. Refer to KDOQI guidelines for clinical interpretation. In patients with unstable renal function, e.g. those with acute kidney injury, the eGFR may not accurately reflect actual GFR. Performed By: #### CBCDIF, BMP #### [facility] [address] [place] [address] TOXICOLOGY SCREEN,UR Collected: 12/07/2018 Status: F Source: [place] 2:54 PM [facility] REPOSITORY TYPE CODE TESTS RESULT OUT [...] on the same specimen through Client Services ([phone]) if contacted within 48 hours of initial testing. [1]Substance Abuse and Mental Health Services Administration (2012). Clinical Drug Testing in Primary Care Technical Assistance Publication Series 32. Department of Health and Human Services, [place], p.10. These tests were developed and their performance characteristics determined by [facility] [place] ( [facility]). They have not been cleared or a pproved by the FDA. [facility] is regulated under CLIA as qualified to perform high complexity testing. These tests are used for clinical purposes. They should not be regarded as investigational or for research. Performed By: #### UTOX2 #### [facility] [address] [place], [place] [address] ED PROV NOTE Observed: 12/07/2018 Status: COMPLETED Source: [place] 2:34 PM [facility] RE[facility] O ID: [id number] Author: Suresh Justice MD Service: Emergency Medicine Author Type: Physician Type: ED Provider Notes Filed: 12/09/2018 12:34 PM Note Text: ED Provider Note Patient Name: Vignesh Morales SERVICE DATE: 12/07/18 History Patient presents with: Suicidal Ideation Depression HPI: The patient is a 28 year old male with a history of amphetamine abuse, ADHD, heroine abuse, hepatitis C, CO in 2014 after using cocaine, major depressive disorder who is presenting to the ED for depression with passive suicidal ideations. The patient states that he has been in an inpatient suboxone facility since November 29 when he last used heroin. He notes that today they tried to move him to another facility where he was supposed to stay for at least 28 days but when he got there he didn't feel safe or comfortable so he left. He notes that he did not get his suboxone today and thus is starting to feel poorly now. He notes that he could go home to [place] with his mom and he has scripts for suboxone. He left the treatment facility himself and took a bus here to get more suboxone. He admits to passive suicidal thoughts and worsening depression but he has no plan or want to hurt himself or others at this time. He denies AH/VH. He denies being on any other medications other than suboxone at this time. PAST MEDICAL HISTORY Diagnosis Date - Abdominal pain, unspecified site 10/01 10/01 EGD multiple studies all negative per Dr. Galindo - Amphetamine abuse (HCC) 11/11/2018 - Attention deficit disorder without mention of hyperactivity stopped medication 2002 - Closed fracture of base of other metacarpal bone(s) 03/03 fx 5th - Drug abuse ([facility]) - Hemarthrosis, other specified site 08/31 right knee hemarthrosis per [place] - Heroin abuse ([facility]) 11/11/2018 Hospital admission 11/09/2018 for withdrawal. - History of hepatitis C 11/11/2018 - Infectious mononucleosis with hepatitis and axillary lymph node enlargement - Major depressive disorder PAST SURGICAL HISTORY Procedure Laterality Date - LUMPECTOMY/RADIOTHERAPY DIAG MAMM/A10 : negative lymph node bx FAMILY HISTORY Problem Relation Age of Onset - other (mutiple sclerosis [Other]) Father - Multiple Sclerosis Paternal Uncle - Cancer Maternal Grandmother - Cancer Paternal Grandmother Social History Social History Main Topics - Smoking status: Current Every Day Smoker Packs/day: 1.00 Years: 2.00 Types: Cigarettes - Smokeless tobacco: Never Used Comment: smokes 1 pack daily - Alcohol use No - Drug use: No - Sexual activity: Yes control/ protection: Condom ALLERGIES Allergen Reactions - Ibuprofen GI Upset - Naproxen GI Upset - Penicillin G GI Upset Review of Systems Constitutional: Negative for chills and fever. HENT: Negative for sinus pain, sinus pressure and sore throat. Eyes: Negative for pain and visual disturbance. Respiratory: Negative for chest tightness, shortness of breath and wheezing. Cardiovascular: Negative for chest pain, palpitations and leg swelling. Gastrointestinal: Negative for abdominal pain, blood in stool, diarrhea, nausea and vomiting. Endocrine: Negative for polyuria. Genitourinary: Negative for difficulty urinating and hematuria. Musculoskeletal: Negative for arthralgias and myalgias. Skin: Negative for rash and wound. Neurological: Negative for syncope and headaches. Hematological: Negative for adenopathy. Psychiatric/Behavioral: Positive for suicidal ideas (resolved). Negative for hallucinations. The patient is nervous/anxious. Physical Exam BP 128/83 Pulse 96 Temp (Src) 97.3 (Oral) Resp 18 Ht 5' 7 (1.70m) Wt 190 lb (86.2kg) SpO2 98% BMI 29.75 kg/(m2). Physical Exam Constitutional: He is oriented to person, place, and time. He appears well-developed and well-nourished. No distress. HENT: Head: Normocephalic and atraumatic. Eyes: Right eye exhibits no discharge. Left eye exhibits no discharge. Neck: Normal range of motion. Neck supple. No tracheal deviation present. No thyromegaly present. Cardiovascular: Normal rate, regular rhythm, normal heart sounds and intact distal pulses. Exam reveals no gallop and no friction rub. No murmur heard. Pulmonary/Chest: Effort normal and breath sounds normal. No respiratory distress. He has no wheezes. Abdominal: Soft. Bowel sounds are normal. He exhibits no distension. There is no tenderness. Musculoskeletal: Normal range of motion. He exhibits no deformity. Neurological: He is alert and oriented to person, place, and time. Skin: Skin is warm and dry. Capillary refill takes less than 2 seconds. No rash noted. Psychiatric: Thought content normal. No current SI, no plan to harm self. Depressed but logical in thought. Good insight. Contracts for safety. No HI. Nursing note and vitals reviewed. Diagnostic Testing ED Labs Ordered and Reviewed - No data to display Procedures ED Course / Clinical Impression Clinical Impressions as of Dec 09 1225 Polysubstance abuse (HCC) Acute stress reaction MDM / Disposition / Plan MDM: The patient is a 28 year old male with a history of amphetamine abuse, ADHD, heroine abuse, hepatitis C, CO in 2014 after using cocaine, major depressive disorder who is presenting to the ED for depression with passive suicidal ideations, now resolved. He feels like he is just starting to withdraw as he has not gotten his suboxone now for the past day. Psychiatry and social work consulted. Notable labs include a non-concerning CBC, BMP and a completely negative Utox. Consults from Psych and Social work were pending at time of sign out. Patient care has been transferred to Dr. Santa as of 5 PM. We discussed the patient's course, condition, and plan with all questions answered. SUMMARY: 28 year old male with history of heroin abuse, in suboxone clinic for past 7 days and was transferred to a new clinic today which he did not like so he left and came here. He has suboxone at home in [place] but no way to get there. Denies SI/HI, AH/VH at this time. TO DO: Follow up with psych and social work Thank you, Cory Oglesby DO Emergency Medicine PGY-1 ATTENDING NOTE: I evaluated the patient and personally participated in the cox components. The cox components include the history, physical exam, and medical decision making. I agree with the resident's findings and plan as documented and have discussed the case and management of the patient's care with the resident. 28 year old male here with history of ADHD, depression, heroin abuse, recently admitted to facility for Suboxone treatment. Stayed for 7 days, and was supposed be transferred to another facility for another possible 20 days. He arrived at the new facility today. He did not like how he felt, did not feel safe. Therefore decided to leave. He states he was unsure what to do, but he needed to get home. Came here to the ED for possible Suboxone dose as well. States he has a prescription at home in [place]. Starting to feel like he is going into withdrawal. However no active withdrawal here in the ED. No vomiting, no chills noted. Resting in bed. He does admit to vague suicidal ideation recently, but no active suicidal ideation at this time. Also no plan. Contracts for safety. Has good social support. Psychiatry evaluated him, okay for discharge home. Social work saw him as well, and arrange for transport home. Patient was therefore discharged. Discussed warning signs AND reasons to RTED. Pt verbalizes understanding of all instructions, and is agreeable to plan. Signature: Suresh Justice MD Date: 12/09/2018 Time: 12:30 PM Cory (ResDamon Oglesby DO Resident 12/07/18 1655 Suresh Justice MD 12/09/18 1234 ED NOTE Observed: 12/07/2018 Status: COMPLETED Source: [place] 2:33 PM [facility] REPOSITORY HNO ID: [id number] Author: Roni (Rn) YA Garrison Service: (none) Author Type: Registered Nurse Type: ED Notes Filed: 12/07/2018 2:33 PM Note Text: Bed: E12-H04 Expected date: Expected time: Means of arrival: Comments: Triage ED NOTE Observed: 12/07/2018 Status: COMPLETED Source: [place] 2:27 PM [facility] RE[facility] HNO ID: [id number] Author: Sahil AnthonyRn) YA Newton Service: Emergency Medicine Author Type: Registered Nurse Type: ED Notes Filed: 12/07/2018 2:30 PM Note Text: Pt presented to ED for SI and depression. Pt states I have been having thoughts of hurting myself. Denies plan. Pt states I also have been depressed. Pt states Im lost, I'm just trying to get home. EKG completed in triage. All belongings taken and placed in locker. NAD noted at this time. EKG1 Observed: 12/07/2018 Status: F Source: [place] 2:25 PM [facility] RE[facility] NAME : VIGNESH MORALES PID : [id number] : 1990 Gender : Male Race : ORD : Procedure Date : Dec 07 2018 14:25:49 Edit Date : Dec 08 2018 06:07:15 Diagnosis:SINUS TACHYCARDIA OTHERWISE NORMAL ECG NOTE: PLEASE SEE PHYSICIAN'S NOTE FROM E.D. VISIT Confirmed by ABELARDO RIOS MD ([id number]), medical transcription editor GEETA PEREZ ([id number]) on 12/08/2018 6:07:08 AM Ventricular Rate : 102 BPM Atrial Rate : 102 BPM P-R Interval : 138 ms QRS Duration : 88 ms Q-T Interval : 350 ms QTC Calculation(Bezet) : 456 ms P [place] : 64 degrees R [place] : 80 degrees T [place] : 52 degrees Test Reason : Location : 2 : EDNS Overread By : ABELARDO RIOS MD Edited By : GEETA PEREZ Referred By : , Acquired by : DERREK TAI Observed: 12/07/2018 Status: COMPLETED Source: [place] 12:00 AM CLINIC OTHER CAMPUS REPOSITORY [id number] Vignesh Morales 1990 M * Clinical document posted in Error * Encounter Type Conversion History User Instant Changed From Changed To LESLIE VIRAMONTES Dec 09, 2018 4:* Hospital En* Erroneous* EMERGENCY DEPARTMENT Observed: 11/30/2018 Status: F Source: [facility] 2:28 AM [facility] RE[facility]IT[facility] Medical Records Department [address] [place] [address] Emergency Department Summary 11/27/18 0504 MR#: [id number] Acct: [id number] Name: VIGNESH MORALES Rep #: [id number] : 1990 28 From: Avinash Abreu MD PCP: Evangelista Carlton MD Status: DEP ER History of Present Illness Informant: Patient Onset: Days - 2 Context: Gradual Onset Timing: Continuous Quality: ache Location: across lower abd, worst suprapubic. radiates into low back, nonlateralizing Current Severity: Moderate Maximum Severity: Moderate Worsened by: nothing Relieved by: nothing Associated Symptoms: urinary sx Narrative: Patient states that simultaneous with the development of his abdominal discomfort has been difficulty urinating. He has urgency and hesitancy, and it takes a while for a stream to start while he is trying. Urinary stream is good for a few seconds but then it tapers off and he feels like he is incompletely emptying, and then has been going more frequently as a result. There is no dysuria. No urethral discharge. No hematuria. His urine does not look abnormal when he goes. After urinating, his abdominal discomfort is not necessarily better. He denies any perineal pain, or pain with bowel movements, which are normal. No nausea, vomiting, fevers. No migration of pain. Prior similar symptoms: No <Avinash Abreu - Last Filed: 11/27/18 06:52> <Germain Martin - Last Filed: 11/27/18 07:56> Chief Complaint: Abd Pain - Past Medical History (1) Hepatitis C Status: Chronic (2) Opiate dependence Status: Chronic <Avinash Abreu - Last Filed: 11/27/18 06:52> Past Medical History Surgical History: no surgical history Smoking Status: Current every day smoker - Family History Maternal Family History: Reports: - - Denies known maternal medical history including cardiac Additional Family History: Unable to obtain at this time Paternal Family History: Reports: - - Multiple sclerosis <Avinash Abreu - Last Filed: 11/27/18 06:52> <Germain Martin - Last Filed: 11/27/18 07:56> - Allergies and Home Meds Allergies/Adverse Reactions: Allergies naproxen [From Naprosyn] Adverse Reaction (Verified 11/27/18 04:52) Nausea Penicillins Adverse Reaction (Verified 11/27/18 04:52) Nausea Primary Care Physician: Evangelista Carlton MD [Primary Care Provider] - Review of Systems All systems negative except as indicated General: Denies: Chills, Fever, Sweats Cardiovascular: Denies: Chest pain, Palpitations Respiratory: Denies: Dyspnea, Cough, Dyspnea on exertion Gastrointestinal: Reports: Abdominal pain. Denies: Nausea, Vomiting, Diarrhea, Melena, Hematochezia Genitourinary: Reports: Frequency, - - hesitancy, urgency, - - no perineal pain. Denies: Dysuria, Hematuria Musculoskeletal: Reports: Back pain. Denies: Swelling, Extremity Pain Skin: Denies: Rash, Wounds Neurological: Denies: Headache, Weakness, Numbness <Avinash Abreu - Last Filed: 11/27/18 06:52> Physical Exam Vital Signs/Narrative: Vital Signs 11/27/18 04:48 97.6 F L 70 16 144/87 H 100 Inital Vital Signs reviewed: Yes General: Well nourished, Well developed, - - well-appearing, nad Head: Normocephalic, Atraumatic Eyes: Perrl, EOMI ENT: Moist mucous membranes, No rhinorrhea Neck: Supple, Nontender Cardiovascular: Regular rate, Regular rhythm, No murmurs Respiratory: No distress, CTA bilaterally, Chest nontender Abdomen: Soft, Nondistended, Normal bowel sounds, Tender - across lower abdomen, nonfocal. Negative for: Guarding, Rebound tenderness, Rovsig's sign, Antoine's sign Back: Nontender, Normal Inspection. Negative for: CVA tenderness Extremities: Nontender, No edema Skin: Normal color, No rash Neurological: Alert, Oriented x3, Cranial nerves II-XII grossly intact, Normal Strength, Normal Sensation Psychological: Normal affect <Avinash Abreu - Last Filed: 11/27/18 06:52> Vital Signs/Narrative: Vital Signs 11/27/18 07:33 100 16 141/86 H 99 11/27/18 06:47 16 11/27/18 04:48 97.6 F L 70 16 144/87 H 100 <Germain Martin - Last Filed: 11/27/18 07:56> Diagnostic/Tx/Re-eval Laboratory Tests Urine Color Yellow (Yellow) Urine Clarity Sl. Cloudy (Clear) Urine pH 6.5 (5.0 - 8.0) Ur Specific [place] 1.020 (1.002-1.030) - Medical Decision Making Urinalysis shows 25 leukocyte esterase, no white cells, rare bacteria, protein 30. Etiology of all of this is unknown at this time, but it does not signify acute infection. He does not have symptoms of prostatitis, he does not have a urethral discharge. Since the urinalysis suggests an alternative diagnosis rather than cystitis, further workup is offered and he is wanting more testing. Will obtain basic labs and a CT of the abdomen and pelvis, looking for possible urolithiasis or early appendicitis. Will be checked out to oncoming emergency physician at shift change. <Avinash Abreu - Last Filed: 11/27/18 06:52> - Medical Decision Making Patient signed out to me. His labs were unremarkable. CT was done and showed no acute findings. I am not sure what is causing his symptoms. Patient will be discharged with nonnarcotic pain medication for outpatient follow-up. Return right away for any new or worsening issues. <Germain Martin - Last Filed: 11/27/18 07:56> ED Disposition <Avinash Abreu - Last Filed: 11/27/18 06:52> <Germain Martin - Last Filed: 11/27/18 07:56> - Plan for ED Patient: Chief Complaint: Abd Pain Diagnosis: Lower abdominal pain Instructions: ED Abdominal Pain Unkn Cause Referrals: Evangelista Carlton MD [Primary Care Provider] - What to do if you have Problems For any increased pain, shortness of breath, bleeding, nausea or vomiting, chest pain, or any unexpected problems, contact your Primary Care Provider. Call [facility] ([phone]) or report to the closest Emergency Room. Call 911 if necessary. 11/30/18 0228 <Electronically signed by Avinash Abreu MD> Date Avinash Abreu MD 11/27/18 0756<Electronically signed by Germain Martin MD> Cosigner Signature (If Indicated): Date Germain Martin MD CC: Evangelista Carlton MD CBC W/DIFF, AUTOMATED Collected: 11/27/2018 Status: F Source: [place] 6:38 AM [facility] REPOSITORY TYPE CODE TESTS RESULT OUT OF RANGE REFERENCE UNITS LAB L100.1000 4.4-11.0 K/mm3 Normal WBC 7.1 LAB L100.1200 4.6-6.2 M/mm3 Normal RBC 4.74 LAB L100.1300 13.0-16.5 g/dl Normal HGB 14.3 LAB L100.1400 40-54 % Normal HCT 42.3 LAB L100.1500 80-94 fL Normal MCV 89.2 LAB L100.1600 27.0-32.0 pg Normal MCH 30.2 LAB L100.1700 32-36 g/gl Normal MCHC 33.8 LAB L100.1810 11.6-14.6 % Normal RDW CV 12.8 LAB L100.1820 35.1-43.9 fl Normal RDW SD 41.7 LAB L100.1900 150-450 K/mm3 Normal PLT 170 LAB L100.2000 6.2-12.0 fl Normal MPV 11.0 LAB L100.2100 47-70 % Normal NEUT% 57.4 LAB L100.2200 19-41 % Normal LY% 27.3 LAB L100.2300 0-10 % High MONO% 13.4 LAB L100.2400 0-5 % Normal EO% 1.5 LAB L100.2500 0-1 % Normal BASO% 0.3 LAB L100.2550 0.0-0.9 % Normal IM GRAN % 0.100 Result Comment: IG% - Immature Granulocytes (promyelocytes, myelocytes and metamyelocytes) > 1% indicates that a LEFT SHIFT is Present. LAB L100.2620 2.0-7.7 X10 3/uL Normal Absolute Neut 4.1 LAB L100.2720 0.83-4.51 X10 3/ul Normal Absolute Lymph 1.94 Performed By: #### L100.0100 #### [facility] [address] [place], [place], [address] BASIC METABOLIC Collected: 11/27/2018 Status: F Source: [place] PRO[facility] (BMP) 6:38 AM [facility] REPOSITORY TYPE CODE TESTS RESULT OUT OF RANGE REFERENCE UNITS LAB L501.0100 74-106 mg/dL Normal GLU 84 Result Comment: Please note revised GLUCOSE reference range effective 2018. LAB L501.1000 7-18 mg/dL Normal BUN 18 LAB L501.1100 0.70-1.30 mg/dL Normal CREAT,SERUM 0.84 Result Comment: The validity of the calculated GFR AND GFRAA in patients over 70 years has not been determined. Clinical correlation is essential. LAB L501.1110 >60 mL/min Normal EST GFR 115 Result Comment: Non- GFR Calc LAB L501.1115 >60 mL/min Normal EST GFR - AA 139 Result Comment: GFR Calc LAB L501.1255 ml/min Normal Estimated CRCL 122.41 LAB L501.1300 10-20 RATIO High BUN/CRE 21.5 LAB L501.2200 8.5-10 mg/dL .1 CA Normal 8.9 LAB L501.5300 136-14 mmol/L 5 NA Normal 143 LAB L501.5600 3.5-5. mmol/L 1 K Normal 3.6 LAB L501.5900 98-107 mmol/L CL Normal 105 LAB L501.6100 21.0-3 mmol/L 2.0 CO2 Normal 29.0 LAB L501.6200 5-15 GAP Normal 9 Performed By: #### L500.2500 #### [facility] [address] [place], [place], [id number] ABDOMEN/PELVIS WITHOUT Observed: 11/27/2018 Status: F Source: [place] CONT 6:28 AM [facility] REPOSITORY [facility] Imaging Services [address] [place] [address] Abdomen/Pelvis without Cont MR#: [id number] Acct: [id number] Name: VIGNESH MORALES Rep #: [id number] : 1990 M 28 From: Jose Navarrete MD PCP: Evangelista Carlton MD Status: REG ER Study: Abdomen/Pelvis without Cont Date of Exam: 11/27/18 Exam# [id number] Ordering Dr: Avinash Abreu MD HISTORY: Lower abdomen pain x 2 days. TECHNIQUE: Helically acquired images were obtained of the abdomen and pelvis without oral or IV contrast as per renal stone protocol. A radiation dose optimization technique was used for this scan. IV Contrast dosage and agent: None. Oral contrast: None. COMPARISON: 09/23/2015 FINDINGS: Lower thorax: Clear. No pleural effusion. Limited non-infusion exam. Allowing for this, the liver, spleen, pancreas, gallbladder, and biliary system showed no CT abnormality. Both kidneys are normal in position. No renal or ureteral calculi and no hydronephrosis or hydro-ureter. Adrenal glands are not enlarged. Abdominal aorta is normal in caliber. No ascites or retroperitoneal lymphadenopathy. GI tract: No obstruction. Retrocecal appendix which appears normal. Pelvis: The prostate gland is not enlarged. Urinary bladder is poorly distended. The pelvis shows no free fluid or lymphadenopathy. Bones: No acute osseous abnormality. CT/Abdomen/Pelvis without Cont IMPRESSION: Negative exam. No acute abdominal disease identified. Individualized dose optimization techniques were used for this CT. at 0743 Reported and signed by: Jose Navarrete MD Electronically Signed: Jose Navarrete, at 7:42 EST Tel , Service support , CC: AVINASH ABREU MD; Evangelista Carlton MD Gas Appliance Servicer: Signed URINALYSIS, COMPLETE Collected: 11/27/2018 Status: F Source: [place] 6:00 AM [facility] REPOSITORY Order Comment: Order Date: 11/27/18 How was Urine Obtained? 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 Cloudy LAB L400.3200 Normal mg/dl Normal GLUCOSE, UR Normal LAB L400.3300 Negative mg/dL Normal BILIRUBIN URINE Negative LAB L400.3400 Negative mg/dl High 5 KETONE UR LAB L400.3465 1.002-1.030 Normal SP.GR. DIPSTX 1.020 LAB L400.3550 5.0 - 8.0 pH UR Normal 6.5 LAB L400.3600 Negative mg/dl High PROT 30 DIPSTX LAB L400.3700 Normal mg/dl High 1 UROBILI LAB L400.3750 Negative Normal NITRITE UR Negative LAB L400.3780 Negative /ul Normal OCCULT BLOOD-UR Negative LAB L400.3800 Negative /ul High LEUK 25 ESTERASE LAB L400.4050 0-5 /hpf WBC Normal 0-5 SEEN LAB L400.4100 0-5 /hpf 0 Normal RBC-UA SEEN LAB L400.4150 0-5 /hpf SQUAM Normal EPI 0-5 SEEN LAB L400.4300 None Seen /hpf Normal BACTERIA RARE LAB L400.4350 <or=2+ /hpf 2+ Normal MUCUS, URINE LAB L400.4400 0-5 /lpf Normal HYALINE CAST 0-5 SEEN Performed By: #### L400.0001 #### [facility] [address] [place], [address] 12 LEAD ELECTROCARDIOGRAM Observed: 11/18/2018 Status: F Source: [place] 4:04 PM [facility] REPOSITORY [facility] Cardiovascular Services [address] [place] [address] 12 Lead EKG 11/09/18 1700 MR#: [id number] Acct: [id number] Name: VIGNESH MORALES Rep #: [id number] : 1990 28 From: Harjit Anderson MD Attending Dr: Deedee Cottrell MD Status: DIS IN Ordering Dr: Glenn Freeman DO Date: 11/09/18 Location: [facility] Sex: M C Admitted: 11/09/18 Test Reason : ROUTINE Blood Pressure : / mmHG Vent. Rate : 093 BPM Atrial Rate : 093 BPM P-R Int : 150 ms QRS Dur : 094 ms QT Int : 354 ms P-R-T Axes : 065 075 039 degrees QTc Int : 440 ms Normal sinus rhythm Normal ECG When compared with ECG of 08-NOV-2016 05:46, No significant change was found Confirmed by JUSTIN MCLEOD, HARJIT ([id number]), medical transcription editor NORBERTO ZIMMER ([id number]) on 11/18/2018 4:04:04 PM Referred By: Glenn Freeman Confirmed By:HARJIT ANDERSON MD 11/18/18 1604 Date Harjit Anderson MD CC: Deedee Cottrell MD; Zeinab Freeman; Evangelista Carlton MD Signed DISCHARGE SUMMARY Observed: 11/11/2018 Status: F Source: [place] 3:27 PM [facility] REPOSITORY [facility] Medical Records Department [address] [place] [address] Discharge Summary 11/11/18 1511 MR#: [id number] Acct: [id number] Name: VIGNESH MORALES Rep #: [id number] : 1990 28 From: Sada OVALLESC PCP: Evangelista Carlton MD Status: DIS IN Y Location: [place] [address] <Sada Webb - Last Filed: 11/11/18 15:19> Discharge Date and Diagnosis Date of Admission: 11/09/18 Date of Discharge: 11/11/18 - Primary Discharge Diagnosis 1. Acute opioid withdrawal, polysubstance abuse 2. Right hand cellulitis 3. Tobacco dependence 4. History of CO, related to cocaine use 5. History of [...] leaving the floor which is against [facility] code of conduct. Patient discharged AGAINST MEDICAL ADVICE. 2. Right hand cellulitis-Bactrim and Keflex. Patient was recently prescribed these and did not take them. 3. Tobacco dependence-encourage smoking cessation. 4. History of CO, related to cocaine use-EKG without acute changes. [...] out AMA due to non-compliance with [facility] and facility policies. This patient was seen [...] Diagnoses (Choose all that apply): None applicable <[place] - Last Filed: 11/11/18 15:27> Discharge Date [...] 1000 Code Visit Inpatient E AND M: 69771 Disch Hosp 11/11/18 1519 <Electronically signed by Sada KHAN> Date Sada KHAN 11/11/18 152<Electronically signed by Deedee Cottrell MD> Cosigner Signature (if applicable): Date Deedee Cottrell MD CC: ERIN Webb; Deedee Cottrell MD; Evangelista Carlton MD Signed DISCHARGE INSTRUCTION Observed: 11/11/2018 Status: F Source: [place] 11:43 [facility] REPOSITORY [facility] Medical Records Department [address] [place] [address] Instructions for Home/Discharge Instructions 11/11/18 1140 MR#: [id number] Acct: [id number] Name: CHARITOVIGNESH CASTELLANO Casey Rep #: [id number] : 1990 28 From: Sada KHAN PCP: [...] appointment, if applicable. Please Follow Up With: [facility] Facility When: Following discharge Proposed Discharge Date: 11/12/18 11/11/18 1143 <Electronically signed by Sada KHAN> Date Sada KHAN CC: Evangelista Carlton MD BASIC METABOLIC Collected: 11/10/2018 Status: F Source: [place] PROFILE (BMP) 8:32 AM [facility] REPOSITORY TYPE CODE TESTS RESULT OUT OF [...] Normal 7 Performed By: #### L500.2500 #### [facility] [address] [place], [address] HISTORY AND PHYSICAL Observed: 11/09/2018 Status: F Source: [place] EXAM 9:49 PM [facility] REPOSITORY [facility] Medical Records Department [address] [place] [address] History and Physical 11/09/18 1624 MR#: [id number] Acct: [id number] Name: VIGNESH MORALES Rep #: [id number] : 1990 28 From: Sada Webb BUILDING CONSULTANT-C PCP: Evagnelista Carlton MD Status: ADM IN Y Location: [place] [id number] ADDENDUM by Zeinab Freeman on 11/09/18 at [...] presented to the [place] office at [facility] requesting inpatient admission for medical stabilization for opiate withdrawal. He uses 1-2 g of heroin daily. He last used at 11 AM on 11/08/2018. He complained of nausea, restlessness. He has a history of an CO in 2015 when he was using cocaine. Drug screen today is positive for opiates, amphetamines and methamphetamine. Denies chest pain or shortness of breath. 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 Physical examination: [...] 3. Methamphetamine use 4. History of an CO when doing cocaine in 2014 5. Hypokalemia 6. Tobacco dependence 7. Right hand cellulitis 8. Hepatitis C I have discussed my assessment with Sada and orders have been written. Inpatient E AND M: 79683 Init Hosp L2 11/09/189 <Electronically signed by Glenn Freeman DO> Date Glenn Freeman DO cc: BUILDING CONSULTANT-Demarcus Webb; Zeinab Freeman; Evangelista Carlton MD * Signed Problem List (1) NSTEMI (non-ST elevated myocardial infarction) Status: Resolved (2) Opiate dependence Status: Chronic (3) Hepatitis C Status: Chronic (4) Tobacco dependence Status: Chronic History of Present Illness Date of Admission: 11/09/18 Chief Complaint: Opioid withdrawal. The patient is a 28 year old M who presents through [facility] program due to opioid withdrawal. 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 He notes right outer hand continues to [...] cessation. Nicotine replacement patch. 4. History of CO, related to cocaine use-obtain EKG. Patient denies chest pain. 5. History of CVA, per patient report-chronic minimal left- sided weakness. 6. History of hepatitis C DVT prophylaxis-not indicated, low risk This patient was seen by ERIN Brown under the supervision of Dr. Freeman. 11/09/18 1637 <Electronically signed by Sada KHAN> Date Sada KHAN 11/09/182144<Electronically signed by Glenn Freeman DO> Cosigner Signature: Date (if applicable) Glenn Freeman DO CC: ERIN Webb; Zeinab Freeman; Evangelista Carlton MD Signed CBC W/DIFF, AUTOMATED Collected: 11/09/2018 Status: F Source: [place] 4:40 PM [facility] REPOSITORY TYPE CODE TESTS RESULT OUT [...] Lymph 1.29 Performed By: #### L100.0100 #### [facility] [address] [place], [place], [id number] ALCOHOL, BLOOD Collected: 11/09/2018 Status: F Source: [place] ([facility] 4:40 PM [facility] REPOSITORY TYPE CODE TESTS RESULT OUT OF [...] fatal coma Performed By: #### L501.9100 #### [facility] [address] [place], [address] COMPREHENSIVE METABOLIC Collected: 11/09/2018 Status: F Source: [place] [facility] 4:40 PM [facility] REPOSITORY TYPE CODE TESTS RESULT OUT OF [...] Normal 6 Performed By: #### L500.4050 #### [facility] [address] [place], [address] URINE DRUG SCREEN Collected: 11/09/2018 Status: F Source: [place] ([place]IST[place]) 4:25 PM [facility] REPOSITORY TYPE CODE TESTS RESULT OUT OF [...] Normal NEGATIVE Performed By: #### L505.5000 #### [facility] [address] [place], [address] DISCHARGE INSTRUCTION Observed: 10/28/2018 Status: F Source: [place] 12:48 AM [facility] REPOSITORY [facility] Medical Records Department [address] [place] [address] Discharge Instruction 10/28/18 0047 MR#: [id number] Acct: [id number] Name: VIGNESH MORALES Rep #: [id number] : 1990 From: Talha Zuñiga MD PCP: [...] your Primary Care Provider. Call [facility] ([phone]) or report to the closest Emergency Room. Call 911 if necessary. 10/28/18 0048 <Electronically signed by Talha Zuñiga MD> Date Talha Zuñiga MD Cosigner Signature (If Indicated): Date CC: Evangelista Carlton MD EMERGENCY DEPARTMENT Observed: 10/28/2018 Status: F Source: [place] SUMMARY 12:47 AM [facility] REPOSITORY [facility] Medical Records Department [address] [place] [address] Emergency Department Summary 10/28/18 0045 MR#: [id number] Acct: [id number] Name: VIGNESH MORALES Rep #: [id number] : 1990 From: Talha Zuñiga MD PCP: [...] hand cellulitis This note was generated with Sekoia dictation software. It may contain incorrect words, [...] your Primary Care Provider. Call [facility] ([phone]) or report to the closest Emergency Room. Call 911 if necessary. 10/28/18 0047 <Electronically signed by Talha Zuñiga MD> Date Talha Zuñiga MD Cosigner Signature (If Indicated): Date CC: Evangelista Carlton MD EMERGENCY DEPARTMENT Observed: 09/14/2018 Status: F Source: [place] SUMMARY 8:08 AM [facility] Medical Records Department [address] [place] [address] Emergency Department Summary 09/10/18 1157 MR#: [id number] Acct: [id number] Name: VIGNESH MORALES Rep #: [id number] : 1990 28 From: Germain Oates DO [...] by physician This note was generated with Sekoia dictation software. It may contain incorrect words, [...] your Primary Care Provider. Call [facility] ([phone]) or report to the closest Emergency Room. Call 911 if necessary. 09/14/18 0808 <Electronically signed by Germain [place] DO> Date Germain Oates DO Cosigner Signature (If Indicated): Date CC: Evangelista Carlton MD PROGRESS Observed: 09/08/2018 Status: COMPLETED Source: [place] 3:31 PM [facility] REPOSITORY O ID: [id number] Author: Main Kelly (Lili) Thomas Service: (none) Author Type: Nurse Practitioner Type: Progress Notes Filed: 09/08/2018 5:31 PM Note Text: Chief Complaint Patient presents with: Medication Follow-up: not helping - causing depression , diarrhea, worrying - would like to stop HPI Vignesh Morales is a 28 year old male who [...] resuming the same medication as before. States fiance told him he needed to see a [...] not be prescribed any stimulant medication from [facility] FM provider per Dr. Gayle. Patient replied, This is just a waste of my time and got up and left the exam room. States if I can't get any help here I will go somewhere else. 08/24/18; HPI Vignesh Morales is a 28 year old male who presents here today for Above Complaints. Trouble with focus, concentrating, paying attention, difficulty holding down a job, tardiness. 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 Reports written warnings at work due to tardiness, difficulty keeping track of time when he goes on break or lunch. Easily gets distracted. 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 Previously on Ritalin, most recent was Adderall 20 mg XR last written in 2007. Freely discloses substance abuse with Opioids in the past, spent time in skilled nursing, previously on Suboxone, 2 years clean, willingly [...] see HPI Patient left during encounter. Main Guzman MSN CARPET MEASURER.HEADING MAKER CNOV Observed: 09/08/2018 Status: COMPLETED Source: [place] 3:20 PM [facility] REPOSITORY Office Visit (FAMPWS) VIGNESH MORALES ([id number]) 1990 M IPA Date Time Provider Department 09/08/18 3:20 PM MAIN GUZMAN (BUILDING CONSULTANT) FAMPWS During your visit today, we recorded the following information about you: Pulse Blood pressure Weight 102/minute 130/80 89.4 kg Main Guzman MSN CARPET MEASURER.HEADING MAKER 09/08/2018 5:31 PM Signed Chief Complaint Patient presents with: Medication Follow-up: not helping - causing depression , diarrhea, worrying - would like to stop HPI Vignesh Morales is a 28 year old male who [...] not be prescribed any stimulant medication from [facility] FM provider per Dr. Gayle. Patient replied, This is just a waste of my time and got up and left the exam room. States if I can't get any help here I will go somewhere else. 08/24/18; HPI Vignesh Morales is a 28 year old male who presents here today for Above Complaints. Trouble with focus, concentrating, paying attention, difficulty holding down a job, tardiness. 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 Reports written warnings at work due to tardiness, difficulty keeping track of time when he goes on break or lunch. Easily gets distracted. 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 Previously on Ritalin, most recent was Adderall 20 mg XR last written in 2007. Freely discloses substance abuse with Opioids in the past, spent time in skilled nursing, previously on Suboxone, 2 years clean, willingly [...] Patient left during encounter. Main Guzman, MSN CARPET MEASURER.HEADING MAKER Referring Provider: NO PCP [956] Allergies As of Date: 09/08/2018 Noted Allergy Reaction IBUPROFEN 06/29/2009 8 - GI Upset NAPROXEN 10/18/2015 8 - GI Upset PENICILLIN G 09/26/2014 8 - GI Upset Date Reviewed: 09/08/2018 Reviewed by: Ivonne Beyer Bed And Breakfast Cook - Fully Assessed Reason for Visit: Medication Follow-up [270] Cmt: not helping - causing depression , diarrhea, worrying - would like to stop Primary Visit Diagnosis:Adult ADHD [F90.9] Prescriptions as of 09/08/2018 Sig: GUANFACINE 1 MG TABLET Take 1 tablet by mouth once d* Problem List As Of Date 09/08/2018 Noted Resolved NO SHOW [308473] INVALID FOR* Backache, unspecified [M54.9] INVALID FOR* [...] INVALID FOR* Encounter Status:Closed by MAIN GUZMAN CNP on 09/08/18 EMERGENCY REPORT Observed: 08/25/2018 Status: F [facility] EMERGENCY ROOM REPORT NAME ACCOUNT SEX AGE ADMIT DISCHARGE PT MED. RECORD# NUMBER DATE DATE TYPE CARMEN [id number] Glenn 28 08/21/18 08/21/18 3 VIGNESH Peña [id number] ROOM: ER DATE OF : 1990 DICTATING [...] discharged in stable Page 1 of 2 VIGNESH MORALES Emergency Room Report condition. He should follow up with Dr. Steinberg, his family doctor, in 3 to 4 days and return if any problems or concerns. Dictated By: Percy Garcia DO 08/21/18 14:26 JOB #: [id number] Transcribed By: brandon 08/21/18 15:29 Electronically signed by: ALEX Garcia D.O. 08/25/18 10:36 Page 2 of 2 VIGNESH MORALES Emergency Room Report TOXICOLOGY SCREEN,UR Collected: 08/24/2018 Status: F Source: [place] 4:10 PM [facility] REPOSITORY TYPE CODE TESTS RESULT [...] on the same specimen through Client Services ([phone]) if contacted within 48 hours of initial testing. [1]Substance Abuse and Mental Health Services Administration (2012). Clinical Drug Testing in Primary Care Technical Assistance Publication Series 32. Department of Health and Human Services, [place], p.10. These tests were developed and their performance characteristics determined by [facility] [place] ( [facility]). They have not been cleared or a pproved by the FDA. [facility] is regulated under CLIA as qualified to perform high complexity testing. These tests are used for clinical purposes. They should not be regarded as investigational or for research. Performed By: #### UTOX2, UQNTPP #### [facility] [address] [place] [id number] QUANT PAIN PANEL, Collected: 08/24/2018 Status: F Source: [facility] 4:10 PM [facility] REPOSITORY TYPE CODE TESTS RESULT OUT OF REFERENCE UNITS RANGE LAB UQCANN <16 ng/mL <16 Cannabinoid, Urine Result Comment: Tetrahydrocannabinol carboxylic acid (THCA) is a metabolite of phvpm-0-phyojzaougfzkfpjbrsq which is the main active component of [...] Urine 7.5 LAB UQSPGR 1.002-1.030 Specific 1.010 [place],Ur LAB UQOXID <200 mg/L Oxidants, <38 Urine LAB SVNI01 <51 mg/L <50 NITRITES,URINE LAB SVCH01 <50 mg/L <10 CHROMATE,URINE LAB SVSQ01 Specimen QUALITY,URINE quality results within acceptable limits. LAB UQNOTE Note This test is for Medical use only. Result Comment: This test was developed and its performance characteristics determined by [facility] [place] ([facility]). It has not been cleared or approved by the FDA. -[facility] is regulated under CLIA as qualified to perform high-complexity testing. This test is used for clinical purposes. It should not be regarded as investigational or for research. Performed By: #### UTOX2, UQNTPP #### [facility] [address] [place], [place] [address] PROGRESS Observed: 08/24/2018 Status: COMPLETED Source: [place] 2:38 PM [facility] REPOSITORY HNO ID: [id number] Author: Main Kelly (Digital Marketing Associate) Thomas Service: (none) Author Type: Nurse Practitioner Type: Progress Notes Filed: 08/24/2018 3:25 PM Note Text: Chief Complaint Patient presents with: Refill Request: patient would like to restart medication fo ADHD HPI Vignesh Morales is a 28 year old male who presents here today for Above Complaints. Trouble with focus, concentrating, paying attention, difficulty holding down a job, tardiness. 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 Reports written warnings at work due to tardiness, difficulty keeping track of time when he goes on break or lunch. Easily gets distracted. 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 Previously on Ritalin, most recent was Adderall 20 mg XR last written in 2007. Freely discloses substance abuse with Opioids in the past, spent time in skilled nursing, previously on Suboxone, 2 years clean, willingly offers to submit urine for drug screen. Denies any current medications, denies any illicit substance use. Past medical history, appointments, medications, allergies reviewed. Previous Medical History PAST MEDICAL HISTORY Diagnosis Date - Abdominal pain, unspecified site 10/01 10/01 EGD multiple studies all negative per Dr. Galindo [id number] - Attention deficit disorder without mention of [...] agrees with the plan. Main Guzman MSN CARPET MEASURER.HEADING MAKER CNOV Observed: 08/24/2018 Status: COMPLETED Source: [place] 2:20 PM [facility] REPOSITORY Office Visit (FAMPWS) VIGNESH MORALES ([id number]) 1990 M IPA Date Time Provider Department 08/24/18 2:20 PM MAIN GUZMAN (BUILDING CONSULTANT) FAMPWS During your visit today, we recorded the following information about you: Temperature Pulse Respiration Blood pressure 99.3 degrees 72/minute 18/minute 122/86 Weight 89.4 kg PATT Au CARPET MEASURER.HEADING MAKER 08/24/2018 3:25 PM Signed Chief Complaint Patient presents with: Refill Request: patient would like to restart medication fo ADHD HPI Vignesh Morales is a 28 year old male who presents here today for Above Complaints. Trouble with focus, concentrating, paying attention, difficulty holding down a job, tardiness. 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 Reports written warnings at work due to tardiness, difficulty keeping track of time when he goes on break or lunch. Easily gets distracted. 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 Previously on Ritalin, most recent was Adderall 20 mg XR last written in 2007. Freely discloses substance abuse with Opioids in the past, spent time in skilled nursing, previously on Suboxone, 2 years clean, willingly [...] issues and agrees with the plan. Main Guzman, MSN CARPET MEASURER.HEADING MAKER Referring Provider: SELF [200] Allergies As of [...] Order(s):TOX SCREEN ROUT UR [SQUTOX2] Order #: [id number] PAIN PANEL, UR QUANT [SQUQNTPP] Order #: [id number] Problem List As Of Date 08/24/2018 Noted Resolved NO SHOW [316534] INVALID FOR* Backache, unspecified [M54.9] INVALID FOR* [...] Sig: Disc: Discontinued by Patient predniSONE (DELTASONE) 10 mg tablet 39 t* 0 04/25/2018 08/24/2018 [...] Follow-up and Disposition History Recorded Letter Text [place] Department of Family Medicine [address] [address] TO WHOM IT MAY CONCERN: This is to confirm that Vignesh Morales had an appointment and was seen at the [facility] in the Department of Family Medicine IVONNE Tristan on 08/24/2018, appointment 2:20 pm. Sincerely yours, IVONNE Tristan Encounter Status:Closed by MAIN GUZMAN CNP on 08/24/18 EMERGENCY DEPARTMENT Observed: 08/20/2018 Status: F Source: [place] SUMMARY 12:41 AM [facility] REPOSITORY [facility] Medical Records Department [address] [place] [address] Emergency Department Summary 08/19/18 1619 MR#: [id number] Acct: [id number] Name: VIGNESH MORALES Rep #: [id number] : 1990 28 From: Niyah English MD [...] was prescribed antibiotics and is to use yrus-wux-dxmauap pain medications as needed. He was given an IM injection of Toradol prior to discharge. Discharge home. Treatment Plan: [] Disposition: [] Impression: Skin cellulitis of left upper buttock This note was generated with Sekoia dictation software. It may contain incorrect words, [...] the antibiotic is finished. You may use nipa-gll-tdvbmtp pain medication of your choice as needed [...] your Primary Care Provider. Call [facility] ([phone]) or report to the closest Emergency Room. Call 911 if necessary. 08/20/18 0041 <Electronically signed by Niyah English MD> Date Niyah English MD Cosigner Signature (If Indicated): Date CC: Yashira Steinberg III, MD DISCHARGE INSTRUCTION Observed: 08/20/2018 Status: F Source: [place] 12:22 AM [facility] REPOSITORY [facility] Medical Records Department [address] [place] [address] Discharge Instruction 08/19/18 1706 MR#: [id number] Acct: [id number] Name: VIGNESH MORALES Rep #: [id number] : 1990 28 From: Niyah English MD PCP: Yashira Steinberg III, MD Status: [facility] ER ED Disposition - Plan for ED [...] the antibiotic is finished. You may use krur-raf-ogsrbxl pain medication of your choice as needed [...] your Primary Care Provider. Call [facility] ([phone]) or report to the closest Emergency Room. Call 911 if necessary. 08/20/18 0022 <Electronically signed by Niyah English MD> Date Niyah English MD Cosigner Signature (If Indicated): Date CC: Yashira Steinberg III, MD EMERGENCY REPORT Observed: 08/13/2018 Status: F Source: [facility] 8:28 PM [facility] EMERGENCY ROOM REPORT NAME ACCOUNT SEX AGE ADMIT DISCHARGE PT MED. RECORD# NUMBER DATE DATE TYPE CARMEN, [id number] Glenn 28 08/11/18 08/11/18 3 VIGNESH Peña [id number] ROOM: ER DATE OF : 1990 DICTATING PHYSICIAN: Odbulia Baker Date seen is August 11, 2018 [...] Clear to Page 1 of 2 VIGNESH MORALES Emergency Room Report auscultation in all lung [...] motor or sensory deficits are noted. Hand salad maker are strong and symmetric. Skin is warm [...] Obdulia Baker DO 08/11/18 17:50 JOB #: [id number] Transcribed By: am 08/12/18 16:06 Electronically signed by: E-Sign: Dr. Obdulia Baker D.O. 08/13/18 20:27 Page 2 of 2 VIGNESH MORALES Emergency Room Report HISTORY PHYSICAL Observed: 08/12/2018 Status: COMPLETED Source: [place] 2:19 PM [facility] REPOSITORY HNO ID: [id number] Author: Lon Crowe Service: (none) Author Type: Nurse Practitioner Type: HANDP Filed: 08/12/2018 2:25 PM Note Text: Patient presents to express care front desk coordinator with abdominal pain. Patient triaged by BUILDING CONSULTANT. Patient reports lower abdominal pain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
== END 2018-11-11 15:26 | disposition left against medical advice (07) | DRG 770 ==
PROVIDERS: Admitting Provider Internal Medicine; Family Provider Family Medicine; PCP Family Medicine; Referring Provider Internal Medicine; Visit Provider Internal Medicine
DX: F11.23 Opioid dependence with withdrawal (principal); E87.6 Hypokalemia; L03.113 Cellulitis of right upper limb; F19.10 Other psychoactive substance abuse, uncomplicated; F17.210 Nicotine dependence, cigarettes, uncomplicated; B18.2 Chronic viral hepatitis C; I69.354 Hemiplegia and hemiparesis following cerebral infarction affecting left non-dominant side; I25.2 Old myocardial infarction
CPT/HCPCS: 36415; 80048; 80053; 80307; 80320; 85025; 93005; 97802; 99406; G0480

== ENCOUNTER 2018-11-27 04:46 | Emergency (ER) | payer MEDICAID, SELFPAY ==
[2018-11-09 15:52] VITALS: BMI 28.1
[2018-11-27 04:48] VITALS: BP 144/87; PULSE 70; RESP 16; TEMP 36.4; O2SAT 100; BMI 29.0
--- NOTE | 2018-11-27 05:04 | ED.VIS.GEN ---
History of Present Illness Informant: Patient Onset: Days - 2 Context: Gradual Onset Timing: Continuous Quality: ache Location: across lower abd, worst suprapubic. radiates into low back, nonlateralizing Current Severity: Moderate Maximum Severity: Moderate Worsened by: nothing Relieved by: nothing Associated Symptoms: urinary sx Narrative: Patient states that simultaneous with the development of his abdominal discomfort has been difficulty urinating. He has urgency and hesitancy, and it takes a while for a stream to start while he is trying. Urinary stream is good for a few seconds but then it tapers off and he feels like he is incompletely emptying, and then has been going more frequently as a result. There is no dysuria. No urethral discharge. No hematuria. His urine does not look abnormal when he goes. After urinating, his abdominal discomfort is not necessarily better. He denies any perineal pain, or pain with bowel movements, which are normal. No nausea, vomiting, fevers. No migration of pain. Prior similar symptoms: No <Avinash Brito - Last Filed: 11/27/18 06:52> <Germain Martin - Last Filed: 11/27/18 07:56> Chief Complaint: Abd Pain - Past Medical History (1) Hepatitis C Status: Chronic (2) Opiate dependence Status: Chronic <Avinash Brito - Last Filed: 11/27/18 06:52> Past Medical History Surgical History: no surgical history Smoking Status: Current every day smoker - Family History Maternal Family History: Reports: - - Denies known maternal medical history including cardiac Additional Family History: Unable to obtain at this time Paternal Family History: Reports: - - Multiple sclerosis <Avinash Brito - Last Filed: 11/27/18 06:52> <Germain Martin - Last Filed: 11/27/18 07:56> - Allergies and Home Meds Allergies/Adverse Reactions: Allergies naproxen [From Naprosyn] Adverse Reaction (Verified 11/27/18 04:52) Nausea Penicillins Adverse Reaction (Verified 11/27/18 04:52) Nausea Primary Care Physician: Evangelista Carlton MD [Primary Care Provider] - Review of Systems All systems negative except as indicated General: Denies: Chills, Fever, Sweats Cardiovascular: Denies: Chest pain, Palpitations Respiratory: Denies: Dyspnea, Cough, Dyspnea on exertion Gastrointestinal: Reports: Abdominal pain. Denies: Nausea, Vomiting, Diarrhea, Melena, Hematochezia Genitourinary: Reports: Frequency, - - hesitancy, urgency, - - no perineal pain. Denies: Dysuria, Hematuria Musculoskeletal: Reports: Back pain. Denies: Swelling, Extremity Pain Skin: Denies: Rash, Wounds Neurological: Denies: Headache, Weakness, Numbness <Avinash Brito - Last Filed: 11/27/18 06:52> Physical Exam Vital Signs/Narrative: Vital Signs Temp Pulse Resp BP Pulse Ox 11/27/18 04:48 97.6 F L 70 16 144/87 H 100 Inital Vital Signs reviewed: Yes General: Well nourished, Well developed, - - well-appearing, nad Head: Normocephalic, Atraumatic Eyes: Perrl, EOMI ENT: Moist mucous membranes, No rhinorrhea Neck: Supple, Nontender Cardiovascular: Regular rate, Regular rhythm, No murmurs Respiratory: No distress, CTA bilaterally, Chest nontender Abdomen: Soft, Nondistended, Normal bowel sounds, Tender - across lower abdomen, nonfocal. Negative for: Guarding, Rebound tenderness, Rovsig's sign, Antoine's sign Back: Nontender, Normal Inspection. Negative for: CVA tenderness Extremities: Nontender, No edema Skin: Normal color, No rash Neurological: Alert, Oriented x3, Cranial nerves II-XII grossly intact, Normal Strength, Normal Sensation Psychological: Normal affect <Avinash Brito - Last Filed: 11/27/18 06:52> Vital Signs/Narrative: Vital Signs Temp Pulse Resp BP Pulse Ox 11/27/18 07:33 100 16 141/86 H 99 11/27/18 06:47 16 11/27/18 04:48 97.6 F L 70 16 144/87 H 100 <Germain Martin - Last Filed: 11/27/18 07:56> Diagnostic/Tx/Re-eval Laboratory Tests 11/27/18 Range/Units 06:00 Urine Color Yellow (Yellow) Urine Clarity Sl. Cloudy (Clear) Urine pH 6.5 (5.0 - 8.0) Ur Specific [place] 1.020 (1.002-1.030) Urine Protein 30 H (Negative) mg/dl Urine Glucose (UA) Normal (Normal) mg/dl Urine Ketones 5 H (Negative) mg/dl Urine Occult Blood Negative (Negative) /ul Urine Nitrite Negative (Negative) Urine Bilirubin Negative (Negative) mg/dL Urine Urobilinogen 1 H (Normal) mg/dl Ur Leukocyte Esterase 25 H (Negative) /ul Urine RBC 0 SEEN (0-5) /hpf Urine WBC 0-5 SEEN (0-5) /hpf Ur Squamous Epith Cells 0-5 SEEN (0-5) /hpf Urine Bacteria RARE (None Seen) /hpf Hyaline Casts 0-5 SEEN (0-5) /lpf Urine Mucus 2+ (<or=2+) /hpf - Medical Decision Making Urinalysis shows 25 leukocyte esterase, no white cells, rare bacteria, protein 30. Etiology of all of this is unknown at this time, but it does not signify acute infection. He does not have symptoms of prostatitis, he does not have a urethral discharge. Since the urinalysis suggests an alternative diagnosis rather than cystitis, further workup is offered and he is wanting more testing. Will obtain basic labs and a CT of the abdomen and pelvis, looking for possible urolithiasis or early appendicitis. Will be checked out to oncoming emergency physician at shift change. <Avinash Brito - Last Filed: 11/27/18 06:52> - Medical Decision Making Patient signed out to me. His labs were unremarkable. CT was done and showed no acute findings. I am not sure what is causing his symptoms. Patient will be discharged with nonnarcotic pain medication for outpatient follow-up. Return right away for any new or worsening issues. <Germain Martin - Last Filed: 11/27/18 07:56> ED Disposition <Avinash Brito - Last Filed: 11/27/18 06:52> <Germain Martin - Last Filed: 11/27/18 07:56> - Plan for ED Patient: Chief Complaint: Abd Pain Diagnosis: Lower abdominal pain Instructions: ED Abdominal Pain Unkn Cause Referrals: Evangelista Carlton MD [Primary Care Provider] -
[2018-11-27 06:06] LABS: Red Blood Cells-Urine 0 SEEN /hpf (0-5)
[2018-11-27 06:18] LABS: Bacteria RARE /hpf (None Seen); Color, Urine Yellow (Yellow); Glucose, Dipstick Normal (Normal); Ketone-Dipstick 5 mg/dl (Negative); Leukocyte Esterase-Dipstick 25 /ul (Negative); Mucous, Urine 2+ /hpf (<or=2+); Nitrite-Dipstick Negative (Negative); Occult Blood-Urine Negative /ul (Negative); Protein-Dipstick 30 mg/dl (Negative); Urine Bilirubin Dipstick Negative (Negative); Urine Clarity Sl. Cloudy (Clear); Urine Urobilinogen 1 mg/dl (Normal); Urine pH 6.5 (5.0 - 8.0)
[2018-11-27 06:19] LABS: Hyaline Cast 0-5 SEEN /lpf (0-5); Squamous Epithelial Cells - UA 0-5 SEEN /hpf (0-5); White Blood Cells 0-5 SEEN /hpf (0-5)
--- NOTE | 2018-11-27 06:28 | CT_ITS ---
HISTORY: Lower abdomen pain x 2 days. TECHNIQUE: Helically acquired images were obtained of the abdomen and pelvis without oral or IV contrast as per renal stone protocol. A radiation dose optimization technique was used for this scan. IV Contrast dosage and agent: None. Oral contrast: None. COMPARISON: 09/23/2015 FINDINGS: Lower thorax: Clear. No pleural effusion. Limited non-infusion exam. Allowing for this, the liver, spleen, pancreas, gallbladder, and biliary system showed no CT abnormality. Both kidneys are normal in position. No renal or ureteral calculi and no hydronephrosis or hydro-ureter. Adrenal glands are not enlarged. Abdominal aorta is normal in caliber. No ascites or retroperitoneal lymphadenopathy. GI tract: No obstruction. Retrocecal appendix which appears normal. Pelvis: The prostate gland is not enlarged. Urinary bladder is poorly distended. The pelvis shows no free fluid or lymphadenopathy. Bones: No acute osseous abnormality. CT/Abdomen/Pelvis without Cont IMPRESSION: Negative exam. No acute abdominal disease identified. Individualized dose optimization techniques were used for this CT. at 0743 Reported and signed by: Jose Navarrete MD Electronically Signed: Jose Navarrete, at 7:42 EST Tel , Service support ,
[2018-11-27 06:47] VITALS: RESP 16
[2018-11-27 06:50] LABS: Absolute Lymphocyte Count 1.94 X10^3/ul (0.83-4.51); Absolute Neutrophil Count 4.1 X10^3/uL (2.0-7.7); Basophil# 0.02 X10^3/uL; Basophil% 0.3 % (0-1); Eosinophil# 0.11 X10^3/uL; Eosinophils% 1.5 % (0-5); Hematocrit 42.3 % (40-54); Hemoglobin 14.3 g/dl (13.0-16.5); Lymphocyte # 1.94 X10^3/ul (4.0); Lymphocyte % 27.3 % (19-41); Mean Corp Hgb Conc 33.8 g/gl (32-36); Mean Corpuscular Hgb 30.2 pg (27.0-32.0); Mean Corpuscular Volume 89.2 fL (80-94); Monocyte# 0.95 X10^3/uL; Monocyte% 13.4 % (0-10); Neutrophil # 4.07 X10^3/uL (2.7-7.7); Neutrophil % 57.4 % (47-70); Platelet Count 170 K/mm3 (150-450); RBC Distribution Width CV 12.8 % (11.6-14.6); RBC Distribution Width SD 41.7 fl (35.1-43.9); Red Blood Count 4.74 M/mm3 (4.6-6.2); White Blood Count 7.1 K/mm3 (4.4-11.0)
[2018-11-27 06:52] LABS: POSITIVE COUNT NO; POSITIVE DIFFERENTIAL NO; POSITIVE MORPHOLOGY NO
[2018-11-27 06:54] LABS: Anion Gap 9 (5-15); BUN 18 mg/dL (7-18); BUN/Creat Ratio 21.5 RATIO (10-20); Calcium,Total 8.9 mg/dL (8.5-10.1); Chloride 105 mmol/L (98-107); Creatinine, Serum 0.84 mg/dL (0.70-1.30); EST Glomerular Filtration Rate 115 mL/min (>60); Est Glom Filt Rate - Afr Amer 139 mL/min (>60); Estimated Creatinine Clearance 122.41 ml/min; Glucose 84 mg/dL (74-106); Potassium 3.6 mmol/L (3.5-5.1); Sodium Level 143 mmol/L (136-145)
[2018-11-27 07:33] VITALS: BP 141/86; PULSE 100; RESP 16; O2SAT 99
== END 2018-11-27 07:59 | disposition home or self-care (01) ==
PROVIDERS: Emergency Provider Emergency Medicine; Family Provider Family Medicine; PCP Family Medicine
DX: R10.31 Right lower quadrant pain (principal); R10.32 Left lower quadrant pain; R39.15 Urgency of urination; R39.11 Hesitancy of micturition; B18.2 Chronic viral hepatitis C; F11.20 Opioid dependence, uncomplicated; F17.200 Nicotine dependence, unspecified, uncomplicated
CPT/HCPCS: 74176; 80048; 81001; 85025; 99283; A4216

== ENCOUNTER 2018-12-08 23:52 | Emergency (ER) | payer MEDICAID, SELFPAY ==
[2018-12-08 23:53] VITALS: BP 125/91; PULSE 110; RESP 16; TEMP 36.7; O2SAT 97; BMI 30.2
[2018-12-08 23:57] VITALS: BP 125/91; PULSE 105; RESP 16; O2SAT 96; O2SAT 97
--- NOTE | 2018-12-09 00:28 | RAD_ITS ---
HISTORY: FELL OUT OF TOP BUNK C/O LBP COMPARISON: 01/08/2014 FINDINGS: XR Spine Lumbar 3 Views: Minor S-shaped thoracolumbar scoliosis with the lumbar convexity to the left. Lumbar vertebra are normal in height. No fracture or suspicious bony lesion. Lumbar disc space heights are preserved. The posterior elements are intact. No spondylolisthesis. SI joints are preserved. RAD/Lumbar Spine 2 or 3 Views IMPRESSION: 1. No fracture or acute osseous abnormality. 2. Minor scoliosis, unchanged. at 0114 Reported and signed by: Jose Navarrete MD Electronically Signed: Jose Navarrete, at 1:13 EST Tel , Service support ,
--- NOTE | 2018-12-09 01:24 | ED.DCSUM_ITS ---
- ER Visit Summary Date of Service: 12/09/18 Chief Complaint: Fall History of Present Illness: The patient is a 28 M who states that he fell off of the top bunk while trying to get down. He slipped. He fell onto his lower back. He states that he feels like he pulled something in his lower back. No paresthesias or weakness. No head injury or loss of consciousness. No loss of bowel or bladder control. No radiation of pain into legs. Physical Examination: Afebrile heart rate 105 vitals otherwise normal Heart regular rate and rhythm Lungs are clear Abdomen soft and nontender Patient does have paraspinal lumbar tenderness mostly in the left Normal strength and sensation of the lower extremities with 5 out of 5 dorsiflexion, plantarflexion, extensor hallucis longus Test Results: Lumbar x-rays show no fracture Emergency Department Course and Treatment: Patient lists an allergy to NSAIDs. He was advised to use Tylenol. He was also given a prescription for Flexeril. He understands to return for new or worsening symptoms and was discharged. Treatment Plan: [] Disposition: Discharge Impression: Back contusion Lumbar strain This note was generated with [employer] dictation software. It may contain incorrect words, spelling, and punctuation that were not noted in review of the chart prior to signing ED Disposition - Plan for ED Patient: Chief Complaint: Fall Referrals: Evangelista Carlton MD [Primary Care Provider] -
--- NOTE | 2018-12-09 01:24 | ED.DEP ---
ED Disposition - Plan for ED Patient: Chief Complaint: Fall Instructions: ED Contusion Back, ED Sprain Strain Lumbar Prescriptions: Cyclobenzaprine [Flexeril] 10 mg PO TID PRN #20 tab PRN Reason: Muscle Spasm Referrals: Evangelista Carlton MD [Primary Care Provider] -
[2018-12-09 01:41] VITALS: PULSE 81; RESP 16; O2SAT 100
--- NOTE | 2018-12-09 01:42 | ED.RN ---
THIS NURSE REVIEWED D/C INSTRUCTIONS WITH PT. PT VERBALIZED UNDERSTANDING OF INSTRUCTIONS. PT DENIES FURTHER NEEDS OR QUESTIONS AT THIS TIME. PT AMBULATES FROM ROOM ON OWN WITHOUT ASSISTANCE OF STAFF
== END 2018-12-09 01:43 | disposition home or self-care (01) ==
LOC: ED 12-09 01:07
PROVIDERS: Emergency Provider Emergency Medicine; Family Provider Family Medicine; PCP Family Medicine
DX: S39.012A Strain of muscle, fascia and tendon of lower back, initial encounter (principal); S30.0XXA Contusion of lower back and pelvis, initial encounter; W06.XXXA Fall from bed, initial encounter; Y93.9 Activity, unspecified; Y92.9 Unspecified place or not applicable; Z72.0 Tobacco use
CPT/HCPCS: 72100; 99283

== ENCOUNTER 2018-12-17 22:12 | Emergency (ER) | payer MEDICAID, SELFPAY ==
[2018-12-17 22:14] VITALS: BP 165/102; PULSE 135; RESP 22; TEMP 36.6; O2SAT 98; BMI 30.2
--- NOTE | 2018-12-17 22:37 | ED.DCSUM_ITS ---
- ER Visit Summary Date of Service: 12/17/18 Chief Complaint: Unresponsive History of Present Illness: The patient is a [address] Carlton. Patient does have a history of polysubstance abuse. He was found in the street unresponsive and responded to a single dose of Narcan and is now awake. He r eports that he has not used heroin for 2 days. His only complaint is that he had 3 episodes of diarrhea in the past hour. Physical Examination: Vitals: 98.0, 165/102, 135, 22, 90% on room air which is not hypoxic. General: Well-nourished and well-developed. Head: Normocephalic atraumatic. Neck: Supple, no lymphadenopathy. No JVD. Nontender. Cardiovascular: Regular rate and rhythm. No murmurs. Respiratory: No respiratory distress. Clear to auscultation bilaterally. Abdominal: Soft, nontender, nondistended, normal bowel sounds. No guarding, rebound, or peritoneal signs. Back: Nontender. Extremities: Nontender, no edema. Skin: Normal color, no rash. Multiple track lam on his arms bilaterally. There is no evidence of infection. No erythema, induration, or fluctuance. Neurologic: Alert and oriented ?3. Cranial nerves II through XII are intact. Normal strength and sensation. Psych: Normal affect. Emergency Department Course and Treatment: Patient was observed over the course of an hour in the emergency department. He is remained stable. Treatment Plan: Patient be discharged instructions to follow-up with 180 as soon as possible. Disposition: To home in improved and stable condition. Impression: 1. Opiate overdose. This note was generated with [employer] software. It may contain incorrect words, spelling, and punctuation that were not noted in review of the chart prior to signing ED Disposition - Plan for ED Patient: Disposition: Home or Assisted Living Chief Complaint: Overdose Instructions: ED Overdose Opiate Referrals: EIGHTY,ONE [STAFF PHYSICIAN] - As soon as possible
--- OUTSIDE RECORDS SUMMARY | 2019-02-21 12:59 | XMS RPT_ITS ---
:1990 Author Organization [place] Support Name Relationship Address Phone CORINNA MORALES Unavailable Unavailable + CAT Unavailable [address] + [place] [address] VASILIY CORADO Unavailable [address] + [address] [place] [address] CAT Unavailable [address] + [place] [address] VASILIY CORADO Unavailable [address] + [address] [place] [address] CAT Unavailable [address] + [place] [address] VASILIY CORADO Unavailable [address] + [address] [place] [address] CAT Unavailable [address] + [place] [address] VASILIY CORADO Unavailable [address] + [address] [place] [address] CAT Unavailable [address] + [place] [address] VASILIY CORADO Unavailable [address] + [address] [place] [address] CAT Unavailable [address] + [place] [address] VASILIY CORADO Unavailable [address] + [address] [place] [address] CAT Unavailable [address] + [place] [address] VASILIY CORADO Unavailable [address] + [address] [place] [address] CAT Unavailable [address] + [place] [address] ARTIFLEX Unavailable [address] + [address] [place] [address] CORINNA MORALES Unavailable [address] [facility] [address] + [place] [address] ART[employer] Unavailable [address] + [address] [place] [address] CORINNA MORALES Unavailable [address] [facility] [address] + [place] [address] MYRON CORADO Unavailable [address] + [place] [address] MYRON CORADO Unavailable [address] [place] [address] NOT GIVEN Unavailable Unavailable Unavailable CORINNA MORALES Unavailable [address] + [place] [address] CLAUDIA Unavailable [address] + [place] [address] MYRON CORADO Unavailable [address] + [place] [address] MYRON CORADO Unavailable [address] [place] [address] NOT GIVEN Unavailable Unavailable Unavailable ZOE MORALESTON Unavailable [address] [facility] [address] + [place] [address] CLAUDIA Unavailable [address] + [place] [address] MCDON03 Unavailable [address] + [place] [address] JADYN MILLAN Unavailable Unavailable + Care Team Providers Name Role Phone 71lbs Attending Unavailable Emigdio Gayle Primary Care Unavailable MAIN GUZMAN (VOCATIONAL TRAINING DIRECTOR) Attending Unavailable MAIN GUZMAN (VOCATIONAL TRAINING DIRECTOR) Referring Unavailable MAIN GUZMAN (VOCATIONAL TRAINING DIRECTOR) Attending Unavailable SURESH JUSTICE Attending Unavailable SURESH JUSTICE Attending Unavailable Evangelista Carlton Primary Care Unavailable AVINASH ABREU Attending Unavailable Elderbrock, Evangelista Primary Care Unavailable Donnell Espinoza Attending Unavailable Cebul III, Yashira Primary Care Unavailable Niyah English Attending Unavailable Germain aOtes Attending Unavailable Elderbrock, Evangelista Primary Care Unavailable Sementi, Zeinab Admitting Unavailable Sementi, Zeinab Referring Unavailable Elderbrock, Evangelista Primary Care Unavailable Paintsil, [place] Consulting Unavailable Paintsil, [place] Attending Unavailable Sementi, Zeinab Admitting Unavailable Sementi, Zeinab Referring Unavailable Elderbrock, Evangelista Primary Care Unavailable Sementi, Zeinab Consulting Unavailable Sementi, Zeinab Attending Unavailable Sementi, Zeinab Admitting Unavailable Sementi, Zeinab Referring Unavailable Elderbrock, Evangelista Primary Care Unavailable Paintsil, [place] Consulting Unavailable Paintsil, [place] Attending Unavailable Sementi, Zeinab Admitting Unavailable Sementi, Zeinab Referring Unavailable Elderbrock, Evangelista Primary Care Unavailable Paintsil, [place] Attending Unavailable Elderbrock, Evangelista Primary Care Unavailable Talha Zuñiga Attending Unavailable Ungur, Remus Attending Unavailable Cebul III, Yashira Primary Care Unavailable Elderbrock, Evangelista Primary Care Unavailable Talha Zuñiga Attending Unavailable Justin, [place] [facility] Attending Unavailable Sementi, Zeinab Referring Unavailable BRANDT BRANDT, DR. CARR Primary Care Unavailable GATO MCLEOD, PERCY Justice Attending Unavailable BRANDT BRANDT, DR. CARR Referring Unavailable Helen Starr, Emergency Physicians Attending Unavailable OBDULIA BAKER DO Admitting Unavailable DIDOBDULIA SAAVEDRA DO Attending Unavailable DIDOBDULIA SAAVEDRA DO Primary Care Unavailable CEBUL, YASHIRA III Consulting Unavailable CEBUL, YASHIRA III Referring Unavailable PROVIDER, UNKNOWN Consulting Unavailable DAVID, DR PERCY Hawthorne Admitting Unavailable DAVID, DR PERCY Hawthorne Attending Unavailable CEBUL, YASHIRA III Referring Unavailable DAVIDDR PERCY PALMER Primary Care Unavailable CEBUL, YASHIRA III Consulting Unavailable PROVIDER, UNKNOWN Consulting Unavailable PROBLEMS PROBLEMS DATE TYPE CONDITION / CODE ATTENDING STATUS SOURCE 12/11/2018 Unknown S39.92XA - Talha Zuñiga Active [place] Unspecified injury Community of lower back, Hospital initial encounter / Repository S39.92XA(ICD-10) 12/07/2018 Active Other psychoactive [facility], Active [place] [facility] / [place] F19.10(ICD-10) Repository 12/07/2018 Active Acute stress [facility], Active [place] reaction / [facility] Main F43.0(ICD-10) [place] Repository 12/07/2018 Active Unknown / NA Active [place] UNK(Unknown) Clinic Other [place] Repository 12/07/2018 Admitting Unknown / [facility] Active [place] General diagnosis UNK(Unknown) Health System Repository PROCEDURES PROCEDURES No Procedure Records FoundRESULTS RESULTS EMERGENCY DEPARTMENT Observed: 12/18/2018 Status: F Source: [place] SUMMARY 12:13 AM [facility] REPOSITORY [facility] Medical Records Department [address] [place] [address] Emergency Department Summary 12/17/18 2236 MR#: [id number] Acct: [id number] Name: VIGNESH MORALES Rep #: [id number] : 1990 28 From: Donnell Espinoza MD PCP: Brandt MCLEOD,Evangelista Status: DEP ER - ER Visit Summary [...] Opiate overdose. This note was generated with Moonshoot dictation software. It may contain incorrect words, [...] problems, contact your Primary Care Provider. Call [facility] ([phone]) or report to the closest Emergency Room. Call 911 if necessary. 12/18/18 0013 <Electronically signed by Donnell Espinoza MD> Date Donnell Espinoza MD Cosigner Signature (If Indicated): Date CC: Evangelista Carlton MD DISCHARGE INSTRUCTION Observed: 12/09/2018 Status: F Source: [place] 1:26 AM [facility] REPOSITORY [facility] Medical Records Department [address] [place] [address] Discharge Instruction 12/09/18 0124 MR#: [id number] Acct: [id number] Name: VIGNESH MORALES Rep #: [id number] : 1990 28 From: Talha Zuñiga MD [...] your Primary Care Provider. Call [facility] ([phone]) or report to the closest Emergency Room. Call 911 if necessary. 12/09/18 0126 <Electronically signed by Talha Zuñiga MD> Date Talha Zuñiga MD Cosigner Signature (If Indicated): Date CC: Evangelista Carlton MD EMERGENCY DEPARTMENT Observed: 12/09/2018 Status: F Source: [place] SUMMARY 1:24 AM [facility] Medical Records Department [address] [place] [address] Emergency Department Summary 12/09/18 0122 MR#: [id number] Acct: [id number] Name: VIGNESH OMRALES Rep #: [id number] : 1990 28 From: Talha Zuñiga MD [...] Lumbar strain This note was generated with Moonshoot dictation software. It may contain incorrect words, [...] problems, contact your Primary Care Provider. Call [facility] ([phone]) or report to the closest Emergency Room. Call 911 if necessary. 12/09/18 0124 <Electronically signed by Talha Zuñiga MD> Date Talha Zuñiga MD Cosigner Signature (If Indicated): Date CC: Evangelista Carlton MD LUMBAR SPINE 2 OR 3 Observed: 12/09/2018 Status: F Source: [place] VIEWS 12:29 AM [facility] REPOSITORY [facility] Imaging Services [address] [place] [address] Lumbar Spine 2 or 3 Views MR#: [id number] Acct: [id number] Name: VIGNESH MORALES Rep #: [id number] : 1990 M 28 From: Jose Navarrete MD PCP: Evangelista Carlton MD Status: REG ER Study: Lumbar Spine 2 or 3 Views Date of Exam: 12/09/18 Exam# [id number] Ordering Dr: Talha Zuñiga MD HISTORY: FELL [...] CC: Talha Zuñiga MD; Evangelista Carlton MD Healthcare Representative: Signed ED NOTE Observed: 12/07/2018 Status: COMPLETED Source: [place] 6:48 PM CLINIC MAIN CAMPUS REPOSITORY HNO ID: [id number] Author: Yoli AnthonyRn) YA Duron Service: (none) Author Type: Registered Nurse Type: ED Notes Filed: 12/07/2018 6:48 PM Note Text: EKG completed previously at 1425 CONSULT Observed: 12/07/2018 Status: COMPLETED Source: [place] 5:14 PM [facility] REPOSITORY HNO ID: [id number] Author: Zachary Flores) Mango Service: Psychiatry Author Type: Resident Type: Consults [...] obtaining transportation back to his home in [place]. He has a specific and reasonable plan [...] old unemployed male who lives alone in [place] who presents to the Emergency Department today [...] not the case. -Has an apartment in [place], wants to get back home. Mom and sister nearby. -Plans to go to a [facility] counseling center in [place] tomorrow to look into further CD treatment options. Also on a wait-list for another rehab. There is a rehab in [place] he liked before. -Just started seeing a doctor in [place] for suboxone maintenance, has a prescription at [...] None currently Current Therapist: None currently Current Corporate Executive: None Last Hospitalization: Yes, years ago for depression at [facility] Hx of Suicide Attempts: Never Previous Discontinued Psychiatric Med Trials: Adderall XR, trazodone, seroquel PAST MEDICAL HISTORY: PAST MEDICAL HISTORY Diagnosis Date - Abdominal pain, unspecified site 10/01 10/01 EGD multiple studies all negative per Dr. 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 ALLERGIES: ALLERGIES Allergen Reactions - Ibuprofen GI [...] Include parent(s) and siblings. Legal Hx: Denies Jainism/Spirituality: Mu-Ism FAMILY HX: Chemical dependency (Brother - heroin) [...] 07, 2018 TIME: 5:14 PM PAGER/CONTACT #: [phone] ED NOTE Observed: 12/07/2018 Status: COMPLETED Source: [place] 4:[address] [facility] MAIN CAMP[facility] REPOSITORY HNO ID: [id number] Author: Germain Barfield DO Service: Emergency Medicine [...] for withdrawal. Has suboxone at home, in [place]. TO DO: F/u social work. Psych to see if can't get home INTERVAL PROGRESS: Social work [facility]. Psych saw patient. Denying SI, more anxious than depressed. Admits he came here because he could not get to [place], and did not know where else to go. Patient agreeable to discharge. Thank you Germain Santa DO Emergency Medicine PGY-2 ED NOTE Observed: 12/07/2018 Status: COMPLETED Source: [place] 4:49 PM [facility] REPOSITORY HNO ID: [id number] Author: Ja AnthonyRn) YA Bhagat Service: (none) Author Type: Registered Nurse Type: ED Notes Filed: 12/07/2018 4:49 PM Note Text: Bed: E12-05 Expected date: Expected time: Means of arrival: Comments: Carmen CASE MANAGEM Observed: 12/07/2018 Status: COMPLETED Source: [place] 4:39 PM [facility] REPOSITORY HNO ID: [id number] Author: Zeinab Espinoza (Sw) Service: Care Management Author Type: Grain Broker And Market Operator Type: Care Mgt Progress Note Filed: 12/07/2018 11:05 PM Note Text: CASE MANAGEMENT PROGRESS NOTE SERVICE DATE: 12/07/2018 SERVICE TIME: 10:24 PM Referral received from ED staff re: transportation back to [facility]. Pt has been evaluated by psychiatry and cleared for D/C. Pt is 28 year old male who came to the ED for anxiety. Pt reports he just completed a seven day suboxone detox treatment. Pt reports he completed the program today and was given options for transition to a sober house. Pt reports he decided to go to [facility] in [place]. Pt reports he was transported to [facility] today and pt reports he became anxious with the [facility] program and reports he was not aware of the program expectations and too crowded. Pt states he refuses to return to [facility] and is requesting to return to [place] where he resides and has a mother. Pt has been cleared for D/C. SW and pt called pt's mother who reported she could not transport pt home due to her inability to leave [place], due to her anxiety and she reports her is on 24 hour oxygen and unable to come to . Mother could not identify anyone to transport pt home. Mother would not purchase a [employer] ticket. SW attempted to arrange [employer] but was unsuccessful and Greyhound trip to [place] was not for another 24 hours. Pt has no money with him. SW arranged transport through [facility] with cost to $161.00. Discussed with psychiatry and Dr. Justice. SIGNATURE: Zeinab WEI, FAT PURIFICATION WORKER PATIENT NAME: Vignesh Morales DATE: December 07, 2018 TIME: 10:24 PM PAGER/CONTACT #: [phone] ED PROV NOTE Observed: 12/07/2018 Status: COMPLETED Source: [place] 4:[address] [facility] [place] REPOSITORY HNO ID: [id number] Author: Suresh Justice MD Service: Emergency Medicine Author Type: Physician Type: ED Provider Notes Filed: 12/08/2018 12:39 AM Note Text: Registration issues. Please see separate ED encounter for my note. MD Suresh Pretty MD 12/08/18 0039 ED NOTE Observed: 12/07/2018 Status: COMPLETED Source: [place] 4:34 PM [facility] REPOSITORY HNO ID: [id number] Author: Ja AnthonyRn) YA Bhagat Service: (none) Author Type: Registered Nurse Type: ED Notes Filed: 12/07/2018 4:34 PM Note Text: Bed: E12-05 Expected date: Expected time: Means of arrival: Comments: Carmen ED NOTE Observed: 12/07/2018 Status: COMPLETED Source: [place] 3:[address] [facility] [place] REPOSITORY HNO ID: [id number] Author: Roni (Rn) YA Garrison Service: Emergency [...] AND DIFFERENTIAL Collected: 12/07/2018 Status: F Source: [place] 3:[address] [facility] MAIN CAMPUS REPOSITORY TYPE CODE [...] k/uL Abs Lymph 1.93 LAB AMONO % Dougherty% 11.7 LAB AAMONO <0.87 k/uL Abs Dougherty High 1.00 LAB AEOS % Eosin% 0.9 LAB AAEOS <0.46 k/uL Abs Eosin 0.08 LAB ABASO % Baso% 0.2 LAB AABASO <0.11 k/uL Abs Baso <0.03 LAB AUNRBC 0 /100 WBC NRBCs 0.0 LAB ABNRBC <0.01 k/uL Absolute nRBC <0.01 LAB DTYP DTYPE Auto Diff Performed By: #### CBCDIF, BMP #### [facility] [address] [place] [id number] BASIC METABOLIC PANL Collected: 12/07/2018 Status: F Source: [place] 3:[address] [facility] [place] REPOSITORY TYPE CODE TESTS RESULT OUT OF REFERENCE UNITS RANGE LAB GLU 74-99 mg/dL Glucose 97 Result Comment: The [place] Diabetes Association (ADA) provides guidance for cutoff [...] Standards of Medical Care in Diabetes 2016, [place] Diabetes Association. Diabetes Care. 2016.39(Suppl 1). LAB [...] GFR. Performed By: #### CBCDIF, BMP #### [facility] [address] [place] [address] TOXICOLOGY SCREEN,UR Collected: 12/07/2018 Status: F Source: [place] 2:[address] [facility] CAMP[facility] REPOSITORY TYPE CODE [...] on the same specimen through Client Services ([phone]) if contacted within 48 hours of initial testing. [1]Substance Abuse and Mental Health Services Administration (2012). Clinical Drug Testing in Primary Care Technical Assistance Publication Series 32. Department of Health and Human Services, [place], p.10. These tests were developed and their performance characteristics determined by [facility]'s [facility] [place] ( [facility]). They have not been cleared or a pproved by the FDA. [facility] is regulated under CLIA as qualified to perform high complexity testing. These tests are used for clinical purposes. They should not be regarded as investigational or for research. Performed By: #### UTOX2 #### [facility] [address] [place], [place] [address] ED PROV NOTE Observed: 12/07/2018 Status: COMPLETED Source: [place] 2:[address] [facility] REPOSITORY HNO ID: [id number] Author: Suresh Justice MD Service: Emergency Medicine Author Type: Physician Type: ED Provider Notes Filed: 12/09/2018 12:34 PM Note Text: ED Provider Note Patient Name: Vignesh Morales SERVICE DATE: 12/07/18 History Patient presents with: Suicidal Ideation Depression HPI: The patient is a 28 year old male with a history of amphetamine abuse, ADHD, heroine abuse, hepatitis C, [place] in 2014 after using cocaine, major depressive [...] notes that he could go home to [place] with his mom and he has scripts [...] negative per Dr. 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 He has suboxone at home in [place] but no way to get there. Denies [...] he has a prescription at home in [place]. Starting to feel like he is going [...] MD Date: 12/09/2018 Time: 12:30 PM Cory (Res) DO Lyndsey Oglesby 12/07/18 1655 Suresh Justice MD 12/09/18 1234 ED NOTE Observed: 12/07/2018 Status: COMPLETED Source: [place] 2:33 PM [facility] REPOSITORY HNO ID: [id number] Author: Roni (Rn) YA Garrison Service: (none) Author Type: Registered Nurse Type: ED Notes Filed: 12/07/2018 2:33 PM Note Text: Bed: E12-H04 Expected date: Expected time: Means of arrival: Comments: Triage ED NOTE Observed: 12/07/2018 Status: COMPLETED Source: [place] 2:[address] [facility] [place] REPOSITORY HNO ID: [id number] Author: Sahil AnthonyRn) YA Newton Service: Emergency [...] time. EKG1 Observed: 12/07/2018 Status: F Source: [place] 2:25 PM [facility] REPOSITORY NAME : VIGNESH MORALES PID : [id number] : 1990 Gender : Male Race : ORD : Procedure Date : Dec 07 2018 14:25:49 Edit Date : Dec 08 2018 06:07:15 Diagnosis:SINUS TACHYCARDIA OTHERWISE NORMAL ECG NOTE: PLEASE SEE PHYSICIAN'S NOTE FROM E.D. VISIT Confirmed by ABELARDO RIOS MD ([id number]), department editor GEETA PEREZ ([id number]) on 12/08/2018 6:07:08 AM Ventricular Rate : 102 BPM Atrial Rate : 102 BPM P-R Interval : 138 ms QRS Duration : 88 ms Q-T Interval : 350 ms QTC Calculation(Bezet) : 456 ms P [place] : 64 degrees R [place] : 80 degrees T [place] : 52 degrees Test Reason : Location : 2 : EDNS Overread By : ABELARDO RIOS MD Edited By : GEETA PEREZ Referred By : , Acquired by : DERREK TAI Observed: 12/07/2018 Status: COMPLETED Source: [place] 12:00 AM CLINIC OTHER CAMPUS REPOSITORY [id number] Vignesh Morales 1990 M * Clinical document posted in Error * Encounter Type Conversion History User Instant Changed From Changed To LESLIE VIRAMONTES Dec 09, 2018 4:* Hospital En* Erroneous* EMERGENCY DEPARTMENT Observed: 11/30/2018 Status: F Source: [place] SUMMARY 2:28 AM [facility] REPOSITORY [facility] Medical Records Department [address] [place] [address] Emergency Department Summary 11/27/18 0504 MR#: [id number] Acct: [id number] Name: VIGNESH MORALES Rep #: [id number] : 1990 28 From: Avinash Abreu MD [...] Normal Strength, Normal Sensation Psychological: Normal affect <Malcolm Abreuley - Last Filed: 11/27/18 06:52> Vital Signs/Narrative: Vital Signs 11/27/18 07:33 100 16 141/86 H 99 11/27/18 06:47 16 11/27/18 04:48 97.6 F L 70 16 144/87 H 100 <Germain Martin - Last Filed: 11/27/18 07:56> Diagnostic/Tx/Re-eval Laboratory Tests Urine Color Yellow (Yellow) Urine Clarity Sl. Cloudy (Clear) Urine pH 6.5 (5.0 - 8.0) Ur Specific [place] 1.020 (1.002-1.030) - Medical Decision Making Urinalysis [...] - Last Filed: 11/27/18 07:56> ED Disposition <DarylAvinash - Last Filed: 11/27/18 06:52> <Germain Martin [...] problems, contact your Primary Care Provider. Call [facility] ([phone]) or report to the closest Emergency Room. Call 911 if necessary. 11/30/18 0228 <Electronically signed by Avinash Abreu MD> Date Avinash Abreu MD 11/27/18 0756<Electronically signed by Germain Martin MD> Cosigner Signature (If Indicated): Date Germain Martin MD CC: Evangelista Carlton MD CBC W/DIFF, AUTOMATED Collected: 11/27/2018 Status: F Source: [place] 6:38 AM [facility] REPOSITORY TYPE CODE TESTS RESULT OUT OF [...] Lymph 1.94 Performed By: #### L100.0100 #### [facility] [address] [place], [place], [address] BASIC METABOLIC Collected: 11/27/2018 Status: F Source: [place] PROFILE (BMP) 6:38 AM [facility] REPOSITORY TYPE CODE TESTS RESULT OUT OF [...] Normal 9 Performed By: #### L500.2500 #### [facility] [address] [place], [place], [address] ABDOMEN/PELVIS WITHOUT Observed: 11/27/2018 Status: F Source: [place] CONT 6:28 AM [facility] REPOSITORY [facility] Imaging Services [address] [place] [address] Abdomen/Pelvis without Cont MR#: [id number] Acct: [id number] Name: VIGNESH MORALES Rep #: [id number] : 1990 M 28 From: Jose Navarrete MD PCP: Evangelista Carlton MD Status: REG ER Study: Abdomen/Pelvis without Cont Date of Exam: 11/27/18 Exam# [id number] Ordering Dr: Avinash Abreu MD HISTORY: Lower [...] CT. at 0743 Reported and signed by: Joes Navarrete MD Electronically Signed: Jose Navarrete, at 7:42 EST Tel , Service support , CC: AVINASH ABREU MD; Evangelista Carlton MD Healthcare Representative: Signed URINALYSIS, COMPLETE Collected: 11/27/2018 Status: F Source: [place] 6:00 AM [facility] REPOSITORY Order Comment: Order Date: 12/28/18 How was Urine Obtained? CONCESSION WORKER TO SPECIFY TYPE CODE TESTS RESULT OUT [...] 0-5 SEEN Performed By: #### L400.0001 #### [facility] [address] [place], [address] 12 LEAD ELECTROCARDIOGRAM Observed: 11/18/2018 Status: F Source: [place] 4:04 PM [facility] REPOSITORY [facility] Cardiovascular Services [address] [place] [address] 12 Lead EKG 11/09/18 1700 MR#: [id number] Acct: [id number] Name: VIGNESH MORALES Rep #: [id number] : 1990 28 From: Harjit Anderson MD Attending Dr: Deedee Cottrell MD Status: DIS IN Ordering Dr: Glenn Freeman DO Date: 11/09/18 Location: [facility] Sex: M C Admitted: 11/09/18 Test Reason [...] found Confirmed by JUSTIN MCLEOD, HARJIT ([id number]), department editor NORBERTO ZIMMER ([id number]) on 11/18/2018 4:04:04 PM Referred By: Glenn Freeman Confirmed By:HARJIT ANDERSON MD 11/18/18 1604 Date Harjit Anderson MD CC: Deedee Cottrell MD; Zeinab Freeman; Evangelista Carlton MD Signed DISCHARGE SUMMARY Observed: 11/11/2018 Status: F Source: [place] 3:27 PM [facility] REPOSITORY [facility] Medical Records Department [address] [place] [id number] Discharge Summary 11/11/18 1511 MR#: [id number] Acct: [id number] Name: VIGNESH MORALES Rep #: [id number] : 1990 28 From: Sada KHAN PCP: Evangelista Carlton MD Status: DIS IN Y Location: [place] [id number] <Sada Webb - Last Filed: 11/11/18 15:19> Discharge Date and Diagnosis Date of Admission: 11/09/18 Date of Discharge: 11/11/18 - Primary Discharge Diagnosis 1. Acute opioid withdrawal, polysubstance abuse 2. Right hand cellulitis 3. Tobacco dependence 4. History of OH, related to cocaine use 5. History of [...] Tobacco dependence-encourage smoking cessation. 4. History of OH, related to cocaine use-EKG without acute changes. [...] Diagnoses (Choose all that apply): None applicable <[place] - Last Filed: 11/11/18 15:27> Discharge Date [...] 1000 Code Visit Inpatient E AND M: 68835 Disch Hosp 11/11/18 1519 <Electronically signed by Sada OVALLESC> Date Sada OVALLESC 11/11/18 1527<Electronically signed by Deedee Cottrell MD> Cosigner Signature (if applicable): Date Deedee Cottrell MD CC: ERIN Webb; Deedee Cottrell MD; Evangelista Carlton MD Signed DISCHARGE INSTRUCTION Observed: 11/11/2018 Status: F Source: [place] 11:43 [facility] Medical Records Department [address] [place] [address] Instructions for Home/Discharge Instructions 11/11/18 1140 MR#: [id number] Acct: [id number] Name: VIGNESH MORALES Rep #: [id number] : 1990 28 From: Sada KHAN PCP: [...] appointment, if applicable. Please Follow Up With: [facility] When: Following discharge Proposed Discharge Date: 11/12/18 11/11/18 1143 <Electronically signed by Sada KHAN> Date Sada KHAN CC: Evangelista Carlton MD BASIC METABOLIC Collected: 11/10/2018 Status: F Source: [place] PROFILE (BMP) 8:32 AM [facility] REPOSITORY TYPE CODE TESTS RESULT OUT OF [...] Normal 7 Performed By: #### L500.2500 #### [facility] [address] [place], [address] HISTORY AND PHYSICAL Observed: 11/09/2018 Status: F Source: [place] EXAM 9:49 PM [facility] REPOSITORY [facility] Medical Records Department [address] [place] [address] History and Physical 11/09/18 1624 MR#: [id number] Acct: [id number] Name: VIGNESH MORALES Rep #: [id number] : 1990 28 From: Sada OVALLESC PCP: Evangelista Carlton MD Status: ADM IN Y Location: [place] [id number] ADDENDUM by Zeinab Freeman on 11/09/18 at [...] presented to the [facility] office at [facility] requesting inpatient admission for medical stabilization for opiate withdrawal. He uses 1-2 g of heroin daily. He last used at 11 AM on 11/08/2018. He complained of nausea, restlessness. He has a history of an OH in 2015 when he was using cocaine. Drug screen today is positive for opiates, amphetamines and methamphetamine. Denies chest pain or shortness of breath. Recently seen in the emergency room with cell but neglected to peanut picker the antibiotics prescribed to him. Physical [...] 3. Methamphetamine use 4. History of an OH when doing cocaine in 2014 5. Hypokalemia 6. Tobacco dependence 7. Right hand cellulitis 8. Hepatitis C I have discussed my assessment with Sada and orders have been written. Inpatient E AND M: [id number] Init Hosp L2 11/09/18 2149 <Electronically signed by Glenn Freeman DO> Date Glenn Freeman DO cc: VOCATIONAL TRAINING DIRECTOR-C Sada Webb; Zeinab Freeman; Evangelista Carlton MD * Signed Problem List (1) NSTEMI (non-ST elevated myocardial infarction) Status: Resolved (2) Opiate dependence Status: Chronic (3) Hepatitis C Status: Chronic (4) Tobacco dependence Status: Chronic History of Present Illness Date of Admission: 11/09/18 Chief Complaint: Opioid withdrawal. The patient is a 28 year old M who presents through [facility] program due to opioid withdrawal. 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 He notes right outer hand continues [...] cessation. Nicotine replacement patch. 4. History of OH, related to cocaine use-obtain EKG. Patient denies [...] 11/09/2018 Status: F Source: [place] 4:40 PM [facility] REPOSITORY TYPE CODE TESTS RESULT OUT OF [...] Lymph 1.29 Performed By: #### L100.0100 #### [facility] [address] [place], [place], [address] ALCOHOL, BLOOD Collected: 11/09/2018 Status: F Source: [place] ([facility] 4:40 PM [facility] REPOSITORY TYPE CODE TESTS RESULT OUT OF [...] fatal coma Performed By: #### L501.9100 #### [facility] [address] [place], [place], [address] COMPREHENSIVE METABOLIC Collected: 11/09/2018 Status: F Source: [place] 4:40 PM [facility] REPOSITORY TYPE CODE TESTS RESULT OUT OF [...] Normal 6 Performed By: #### L500.4050 #### [facility] [address] [place], [address] URINE DRUG SCREEN Collected: 11/09/2018 Status: F Source: [place] ([place]IST[place]) 4:25 PM [facility] REPOSITORY TYPE CODE TESTS RESULT OUT OF [...] Normal NEGATIVE Performed By: #### L505.5000 #### [facility] [address] [place], [address] DISCHARGE INSTRUCTION Observed: 10/28/2018 Status: F Source: [place] 12:48 AM [facility] REPOSITORY [facility] Medical Records Department [address] [place] [address] Discharge Instruction 10/28/18 0047 MR#: [id number] Acct: [id number] Name: VIGNESH MORALES Rep #: [id number] : 1990 From: Talha Zuñiga MD PCP: [...] problems, contact your Primary Care Provider. Call [facility] ([phone]) or report to the closest Emergency Room. Call 911 if necessary. 10/28/18 0048 <Electronically signed by Talha Zuñiga MD> Date Talha Zuñiga MD Cosigner Signature (If Indicated): Date CC: Evangelista Carlton MD EMERGENCY DEPARTMENT Observed: 10/28/2018 Status: F Source: [place] SUMMARY 12:47 AM [facility] Medical Records Department [address] [place] [address] Emergency Department Summary 10/28/18 0045 MR#: [id number] Acct: [id number] Name: VIGNESH MORALES Rep #: [id number] : 1990 From: Talha Zuñiga MD PCP: [...] hand cellulitis This note was generated with Moonshoot dictation software. It may contain incorrect words, [...] your Primary Care Provider. Call [facility] ([phone]) or report to the closest Emergency Room. Call 911 if necessary. 10/28/18 0047 <Electronically signed by Talha Zuñiga MD> Date Talha Zuñiga MD Cosigner Signature (If Indicated): Date CC: Evangelista Carlton MD EMERGENCY DEPARTMENT Observed: 09/14/2018 Status: F Source: [place] SUMMARY 8:08 AM [facility] REPOSITORY [facility] Medical Records Department [address] [place] [address] Emergency Department Summary 09/10/18 1157 MR#: [id number] Acct: [id number] Name: VIGNESH MORALES Rep #: [id number] : 1990 28 From: Germain Oates DO [...] by physician This note was generated with Moonshoot dictation software. It may contain incorrect words, [...] your Primary Care Provider. Call [facility] ([phone]) or report to the closest Emergency Room. Call 911 if necessary. 09/14/18 0808 <Electronically signed by Germain Bithlo DO> Date Germain Oates DO Cosigner Signature (If Indicated): Date CC: Evangelista Carlton MD PROGRESS Observed: 09/08/2018 Status: COMPLETED Source: [place] 3:[address] [facility] [place] REPOSITORY HNO ID: [id number] Author: Main Kelly (Lili) Thomas Service: (none) [...] not be prescribed any stimulant medication from F FM provider per Dr. Gayle. Patient replied, [...] a job, tardiness. 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 Reports written warnings at work due to tardiness, difficulty keeping track of time when he goes on break or lunch. Easily gets distracted. 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 Previously on Ritalin, most recent was Adderall 20 mg XR last written in 2007. Freely discloses substance abuse with Opioids in the past, [place] [facility] [place], previously on Suboxone, 2 years clean, willingly [...] Patient left during encounter. Main Guzman, MSN PORTABLE FEED MILL OPERATOR.MID LEVEL NET DEVELOPER CNOV Observed: 09/08/2018 Status: COMPLETED Source: [place] 3:20 PM [facility] REPOSITORY Office Visit (FAMPWS) VIGNESH MORALES ([id number]) 1990 M IPA Date Time Provider Department 09/08/18 3:20 PM MAIN GUZMAN (VOCATIONAL TRAINING DIRECTOR) FAMPWS During your visit today, we recorded the following information about you: Pulse Blood pressure Weight 102/minute 130/80 89.4 kg Main Guzman MSN PORTABLE FEED MILL OPERATOR.MID LEVEL NET DEVELOPER 09/08/2018 5:31 PM Signed Chief Complaint Patient [...] not be prescribed any stimulant medication from PSYCHIATRIC FM provider per Dr. Gayle. Patient replied, [...] a job, tardiness. 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 Reports written warnings at work due to tardiness, difficulty keeping track of time when he goes on break or lunch. Easily gets distracted. 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 Previously on Ritalin, most recent was Adderall 20 mg XR last written in 2007. Freely discloses substance abuse with Opioids in the past, [place] [facility], previously on Suboxone, 2 years clean, willingly [...] Patient left during encounter. Main Guzman, MSN PORTABLE FEED MILL OPERATOR.MID LEVEL NET DEVELOPER Referring Provider: NO PCP [956] Allergies As of Date: 09/08/2018 Noted Allergy Reaction IBUPROFEN 06/29/2009 8 - GI Upset NAPROXEN 10/18/2015 8 - GI Upset PENICILLIN G 09/26/2014 8 - GI Upset Date Reviewed: 09/08/2018 Reviewed by: Ivonne [employer] Installation Engineer - Fully Assessed Reason for Visit: Medication Follow-up [270] Cmt: not helping - causing depression , diarrhea, worrying - would like to stop Primary Visit Diagnosis:Adult ADHD [F90.9] Prescriptions as of 09/08/2018 Sig: GUANFACINE 1 MG TABLET Take 1 tablet by mouth once d* Problem List As Of Date 09/08/2018 Noted Resolved NO SHOW [192484] INVALID FOR* Backache, unspecified [M54.9] INVALID FOR* [...] EMERGENCY REPORT Observed: 08/25/2018 Status: F [facility] EMERGENCY ROOM REPORT NAME ACCOUNT SEX AGE ADMIT DISCHARGE PT MED. RECORD# NUMBER DATE DATE TYPE CARMEN [id number] M 28 08/21/18 08/21/18 3 VIGNESH Casey [id number] ROOM: ER DATE OF : 1990 DICTATING [...] Percy Garcia DO 08/21/18 14:26 JOB #: [id number] Transcribed By: brandon 08/21/18 15:29 Electronically signed by: ALEX Garcia D.O. 08/25/18 10:36 Page 2 of 2 VIGNESH MORALES Emergency Room Report TOXICOLOGY SCREEN,UR Collected: 08/24/2018 Status: F Source: [place] 4:[address] [facility] REPOSITORY TYPE CODE [...] on the same specimen through Client Services ([phone]) if contacted within 48 hours of initial testing. [1]Substance Abuse and Mental Health Services Administration (2012). Clinical Drug Testing in Primary Care Technical Assistance Publication Series 32. Department of Health and Human Services, [place], p.10. These tests were developed and their performance characteristics determined by [facility] [place] ( [facility]). They have not been cleared or a pproved by the FDA. [facility] is regulated under CLIA as qualified to perform high complexity testing. These tests are used for clinical purposes. They should not be regarded as investigational or for research. Performed By: #### UTOX2, UQNTPP #### [facility] [address] [place] [id number] QUANT PAIN PANEL, Collected: 08/24/2018 Status: F Source: [place] UR 4:[address] [facility] REPOSITORY TYPE CODE TESTS RESULT OUT OF REFERENCE UNITS RANGE LAB UQCANN <16 ng/mL <16 Cannabinoid, Urine Result Comment: Tetrahydrocannabinol carboxylic acid (THCA) is a metabolite of pcpno-1-qgohzausegoxwdubghco which is the main active component of [...] Urine 7.5 LAB UQSPGR 1.002-1.030 Specific 1.010 [place],Ur LAB UQOXID <200 mg/L Oxidants, <38 Urine LAB SVNI01 <51 mg/L <50 NITRITES,URINE LAB SVCH01 <50 mg/L <10 CHROMATE,URINE LAB SVSQ01 Specimen QUALITY,URINE quality results within acceptable limits. LAB UQNOTE Note This test is for Medical use only. Result Comment: This test was developed and its performance characteristics determined by [facility]'s [facility] Pathology and Laboratory Medicine [place] ([facility]). It has not been cleared or approved by the FDA. [facility] is regulated under CLIA as qualified to perform high-complexity testing. This test is used for clinical purposes. It should not be regarded as investigational or for research. Performed By: #### UTOX2, UQNTPP #### [facility] [address] [place], [place] [address] PROGRESS Observed: 08/24/2018 Status: COMPLETED Source: [place] 2:[address] [facility] REPOSITORY HNO ID: [id number] Author: Main Kelly (Lili) Thomas Service: (none) [...] a job, tardiness. 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 Reports written warnings at work due to tardiness, difficulty keeping track of time when he goes on break or lunch. Easily gets distracted. 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 Previously on Ritalin, most recent was Adderall 20 mg XR last written in 2007. Freely discloses substance abuse with Opioids in the past, [place] [facility] [place], previously on Suboxone, 2 years clean, willingly [...] agrees with the plan. Main Guzman MSN PORTABLE FEED MILL OPERATOR.MID LEVEL NET DEVELOPER CNOV Observed: 08/24/2018 Status: COMPLETED Source: [place] 2:20 PM [facility] REPOSITORY Office Visit (FAMPWS) VIGNESH MORALES ([id number]) 1990 M IPA Date Time Provider Department 08/24/18 2:20 PM MAIN GUZMAN (VOCATIONAL TRAINING DIRECTOR) FAMPWS During your visit today, we recorded the following information about you: Temperature Pulse Respiration Blood pressure 99.3 degrees 72/minute 18/minute 122/86 Weight 89.4 kg PATT Au PORTABLE FEED MILL OPERATOR.MID LEVEL NET DEVELOPER 08/24/2018 3:25 PM Signed Chief Complaint Patient presents with: Refill Request: patient would like to restart medication fo ADHD HPI Vignesh Morales is a 28 year old male who presents here today for Above Complaints. Trouble with focus, concentrating, paying attention, difficulty holding down a job, tardiness. 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 Reports written warnings at work due to tardiness, difficulty keeping track of time when he goes on break or lunch. Easily gets distracted. 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 Previously on Ritalin, most recent was Adderall 20 mg XR last written in 2007. Freely discloses substance abuse with Opioids in the past, [place] [facility] [place], previously on Suboxone, 2 years clean, willingly [...] agrees with the plan. Main Guzman, MSN PORTABLE FEED MILL OPERATOR.MID LEVEL NET DEVELOPER Referring Provider: SELF [200] Allergies As of [...] Order(s):TOX SCREEN ROUT UR [SQUTOX2] Order #: [id number] PAIN PANEL, UR QUANT [SQUQNTPP] Order #: [id number] Problem List As Of Date 08/24/2018 Noted Resolved NO SHOW [282679] INVALID FOR* Backache, unspecified [M54.9] INVALID FOR* [...] Follow-up and Disposition History Recorded Letter Text [facility] [address] [place] [address] TO WHOM IT MAY CONCERN: This is to confirm that Vignesh Morales had an appointment and was seen at the [facility] in the Department of Family Medicine IVONNE Tristan on 08/24/2018, appointment 2:20 pm. Sincerely yours, IVONNE Tristan Encounter Status:Closed by MAIN GUZMAN CNP on 08/24/18 EMERGENCY DEPARTMENT Observed: 08/20/2018 Status: F Source: [place] SUMMARY 12:41 AM [facility] REPOSITORY [facility] Medical Records Department [address] [place] [address] Emergency Department Summary 08/19/18 1619 MR#: [id number] Acct: [id number] Name: VIGNESH MORALES Rep #: [id number] : 1990 28 From: Niyah English MD [...] was prescribed antibiotics and is to use ehkx-iad-vdrygnu pain medications as needed. He was given an IM injection of Toradol prior to discharge. Discharge home. Treatment Plan: [] Disposition: [] Impression: Skin cellulitis of left upper buttock This note was generated with Moonshoot dictation software. It may contain incorrect words, [...] the antibiotic is finished. You may use fgun-xxq-sfmfgoc pain medication of your choice as needed for pain. If you have any worsening of your condition or any new concerning symptoms, please return immediately to the emergency department for another evaluation. What to do if you have Problems For any increased pain, shortness of breath, bleeding, nausea or vomiting, chest pain, or any unexpected problems, contact your Primary Care Provider. Call [facility] ([phone]) or report to the closest Emergency Room. Call 911 if necessary. 08/20/18 0041 <Electronically signed by Niyah English MD> Date Niyah English MD Cosigner Signature (If Indicated): Date CC: Yashira Steinberg III, MD DISCHARGE INSTRUCTION Observed: 08/20/2018 Status: F Source: [place] 12:22 AM [facility] REPOSITORY [facility] Medical Records Department [address] [place] [address] Discharge Instruction 08/19/18 1706 MR#: [id number] Acct: [id number] Name: VIGNESH MORALES Rep #: [id number] : 1990 28 From: Niyah English MD PCP: Yashira Steinberg III, MD Status: [facility] ER ED Disposition - Plan for [...] the antibiotic is finished. You may use tsjd-mbd-urnqsex pain medication of your choice as needed [...] your Primary Care Provider. Call [facility] ([phone]) or report to the closest Emergency Room. Call 911 if necessary. 08/20/18 0022 <Electronically signed by Niyah English MD> Date Niyah English MD Cosigner Signature (If Indicated): Date CC: Yashira Steinberg III, MD EMERGENCY REPORT Observed: 08/13/2018 Status: F Source: [facility] 8:28 PM [facility] EMERGENCY ROOM REPORT NAME ACCOUNT SEX AGE ADMIT DISCHARGE PT MED. RECORD# NUMBER DATE TYPE CARMEN, [id number] Glenn 28 08/11/18 08/11/18 3 VIGNESH Peña [id number] ROOM: ER DATE OF : 1990 DICTATING [...] motor or sensory deficits are noted. Hand custom decorating consultant are strong and symmetric. Skin is warm [...] Obdulia Baker DO 08/11/18 17:50 JOB #: [id number] Transcribed By: am 08/12/18 16:06 Electronically signed by: E-Sign: Dr. Obdulia Baker D.O. 08/13/18 20:27 Page 2 of 2 VIGNESH MORALES Emergency Room Report HISTORY PHYSICAL Observed: 08/12/2018 Status: COMPLETED Source: [place] 2:19 PM [facility]IC MAIN [place] REPOSITORY HNO ID: [id number] Author: Lon Crowe Service: (none) Author Type: Nurse Practitioner Type: HANDP Filed: 08/12/2018 2:25 PM Note Text: Patient presents to express care front office medical assistant with abdominal pain. Patient triaged by VOCATIONAL TRAINING DIRECTOR. Patient reports lower abdominal pain 10 currently. Patient reports that he went to [facility] last night and they were concerned for appendicitis, but did not get the workup done because he disagreed with the provider. Informed patient of limitations of express care and I recommended ER evaluation. Patient visibly irritated and using profanity while leaving [facility]. URINALYSIS Collected: 08/11/2018 Status: F Source: [facility] 5:10 PM [facility] REPOSITORY TYPE CODE TESTS RESULT [...] NORMAL: NORMAL Urobilinog Abnormal 1 LAB Sp [place](LOINC) NORMAL: 1.010-1.030 Sp [place] 1.020 LAB Nitrite(LOINC) NORMAL: NEGATIVE Nitrite NEG [...] LAB Yeast(LOINC) Yeast NONE Performed By: #### [id number] #### [facility],[address] [place] [address] DISCHARGE INSTRUCTION Observed: 07/23/2018 Status: F Source: [place] 1:25 AM [facility] REPOSITORY [facility] Medical Records Department [address] [place] [address] Discharge Instruction 07/23/18 0124 MR#: [id number] Acct: [id number] Name: VIGNESH MORALES Casey Rep #: [id number] : 1990 28 From: Hugh Knapp DO [...] your Primary Care Provider. Call [facility] ([phone]) or report to the closest Emergency Room. Call 911 if necessary. 07/23/18 012 <Electronically signed by Hugh Knapp DO> Date Hugh Knapp DO Abdoulayeigner Signature (If Indicated): Date CC: Yashira Steinberg III, MD EMERGENCY DEPARTMENT Observed: 07/23/2018 Status: F Source: [place] SUMMARY 1:24 AM [facility] REPOSITORY [facility] Medical Records Department [address] [place] [address] Emergency Department Summary 07/23/18 0122 MR#: [id number] Acct: [id number] Name: VIGNESH MORALES Rep #: [id number] : 1990 28 From: Hugh Knapp DO [...] [Viral gastroenteritis] This note was generated with Moonshoot dictation software. It may contain incorrect words, [...] your Primary Care Provider. Call [facility] ([phone]) or report to the closest Emergency Room. Call 911 if necessary. 07/23/18 0124 <Electronically signed by Hugh Knapp DO> Date Hugh Knapp DO Cosigner Signature (If Indicated): Date CC: Yashira Steinberg III, MD CBC W/DIFF, AUTOMATED Collected: 07/23/2018 Status: F Source: [place] 12:45 AM [facility] REPOSITORY TYPE CODE TESTS RESULT OUT OF [...] Lymph 2.84 Performed By: #### L100.0100 #### [facility] [address] [place], [address] COMPREHENSIVE METABOLIC Collected: 07/23/2018 Status: F Source: [facility] 12:45 AM [facility] REPOSITORY TYPE CODE TESTS RESULT OUT OF [...] 8 Performed By: #### L500.4050, L501.2450 #### [facility] [address] [place], [address] LIPASE Collected: 07/23/2018 Status: F Source: [place] 12:45 AM [facility] REPOSITORY TYPE CODE TESTS RESULT OUT OF RANGE REFERENCE UNITS LAB L501.2450 73-393 U/L Normal LIPASE 155 Performed By: #### L500.4050, L501.2450 #### [facility] [address] [place], [address] Observed: 04/30/2018 Status: F Source: [place] [employer] [facility] 12:01 PM FOUNDATION REPOSITORY . MICRO [...] Locations *1: This test was performed at: [address], [address] [place] [address] Performed By: #### CWD #### [place] [address] PROGRESS Observed: 04/25/2018 Status: COMPLETED Source: [place] 3:[address] [facility] [place] REPOSITORY O ID: [id number] Author: Zachary Chavez ([place]) Service: (none) Author Type: Physician Tank Truck Driver Type: Progress Notes Filed: 04/25/2018 3:52 PM [...] painful. States that he works for a [employer], and states he had a lot of [...] JOSE Garcia Observed: 04/25/2018 Status: COMPLETED Source: [place] 2:45 PM [facility] REPOSITORY Office Visit (WSTR) VIGNESH MORALES ([id number]) 1990 M Date Time Provider Department 04/25[facility]18 2:[facility] During your visit today, we recorded the following information about you: Temperature Pulse Respiration Weight 98.9 degrees 80/minute 16/minute 96.6 kg Zachary Chavez PA-C 04/25/2018 3:52 PM Signed Subjective HPI HPI Vignesh Morales is a [...] painful. States that he works for a [employer], and states he had a lot of [...] Of Date 04/25/2018 Noted Resolved NO SHOW [580451] INVALID FOR* Backache, unspecified [M54.9] INVALID FOR* [...] ED DOC Observed: 03/30/2018 Status: UNK Source: [facility] 9:01 AM URBANA Drync This is a preliminary report only, as the practitioner review and authentication has not occurred. ED DOC Observed: 03/30/2018 Status: UNK Source: [facility] 9:01 AM URBANA [facility] REPOSITORY PHYSICIAN ASSESSMENT RECORDS : FlexChartData Event Time: 03/30/2018 07:45 Status: Signed [facility] Vignesh Morales [[id number]] Attending Physician 1990 Chart (V2b) Chart created at 03/30/2018 07:39 by Butch Angeles Chart closed at 03/30/2018 08:49 Entry in Emergency Department at 03/30/2018 06:52, departure at 03/30/2018 09:01 Patient Name: Vignesh Morales Record Number: [id number] Date: 03/30/2018 07:39 Entered Department at: 03/30/2018 [...] not hit his head or lose consciousness. [facility] PATIENT NAME: VIGNESH MORALES [address] [facility] [address] Garduno MEDICAL REC #: [id number] [place] [address] EMERGENCY DEPARTMENT CHART EMERGENCY DEPARTMENT PHYSICIAN Patient [...] areas of tenderness or evidence of trauma [facility] PATIENT NAME: VIGNESH MORALES [address] [facility] [address] Garduno MEDICAL REC #: [id number] [place] [address] EMERGENCY DEPARTMENT CHART EMERGENCY DEPARTMENT PHYSICIAN throughout [...] File ---- Signed By: Roni Rock MD [facility] PATIENT NAME: VIGNESH MORALES [address] [facility] [address] Garduno MEDICAL REC #: [id number] [place] [address] EMERGENCY DEPARTMENT CHART EMERGENCY DEPARTMENT PHYSICIAN [email or web address] [...] Signature on File ---- Signed By: Roni oRck MD [email or web address] [facility] PATIENT NAME: VIGNESH MORALES Dr. Garduno MEDICAL REC #: [id number] [place] [address] EMERGENCY DEPARTMENT CHART EMERGENCY DEPARTMENT PHYSICIAN Dictated: [...] Rock MD [email or web address] Dictated: 03/30/2018 8:17 AM [facility] PATIENT NAME: VIGNESH MORALES Colette Garduno MEDICAL REC #: [id number] [place] [address] EMERGENCY DEPARTMENT CHART EMERGENCY DEPARTMENT PHYSICIAN Signed: [...] medicated with Tylenol, Motrin, Norflex. Patient was [facility] PATIENT NAME: VIGNESH MORALES [address] [facility] [address] Garduno MEDICAL REC #: [id number] [place] [address] EMERGENCY DEPARTMENT CHART EMERGENCY DEPARTMENT PHYSICIAN requesting [...] Event Time: 03/30/2018 08:51 ===DISCHARGE REPORT=== : Lula Event Time: 03/30/2018 07:45 : Discharge Report Event Time: 03/30/2018 08:51 Status: Draft Reasons to Return to the ER: [facility] PATIENT NAME: VIGNESH MORALES [address] [facility] [address] Garduno MEDICAL REC #: [id number] [place] [id number] EMERGENCY DEPARTMENT CHART EMERGENCY DEPARTMENT PHYSICIAN You [...] prescriptions filled. EKG and Radiology Results: A machine maintenance supervisor or radiologist will review any EKG or [...] are aware and can make suggestions DIAGNOSIS: [facility] PATIENT NAME: VIGNESH MORALES [address] [facility] [address] Garduno MEDICAL REC #: [id number] [place] [address] EMERGENCY DEPARTMENT CHART EMERGENCY DEPARTMENT PHYSICIAN acute [...] Minor pain may also be treated with yeke-fdp-zmomoad ibuprofen (if you are not ) or [...] treatment, you may have had a splint [facility] PATIENT NAME: VIGNESH MORALES [address] [facility] [address] Garduno MEDICAL REC #: [id number] [place] [address] EMERGENCY DEPARTMENT CHART EMERGENCY DEPARTMENT PHYSICIAN applied [...] tablet, count:20, Dose = 1, count:20, Every [facility] PATIENT NAME: VIGNESH MORALES [address] [facility] MEDICAL REC #: [id number] [place] [address] EMERGENCY DEPARTMENT CHART EMERGENCY DEPARTMENT PHYSICIAN 6-8 [...] indicates consent for Case Management to contact [facility] in an effort to meet your ongoing healthcare needs. This will allow forcontinuity of care once you leave the Emergency Department. This exchange of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
== END 2018-12-17 23:22 | disposition home or self-care (01) ==
LOC: ED 22:45
PROVIDERS: Emergency Provider Emergency Medicine; Family Provider Family Medicine; PCP Family Medicine
DX: T40.601A Poisoning by unspecified narcotics, accidental (unintentional), initial encounter (principal); R40.20 Unspecified coma; K52.1 Toxic gastroenteritis and colitis; Y92.410 Unspecified street and highway as the place of occurrence of the external cause; F11.90 Opioid use, unspecified, uncomplicated; Z72.0 Tobacco use
CPT/HCPCS: 99283

== ENCOUNTER 2019-01-01 21:55 | Emergency (ER) | payer MEDICAID, SELFPAY ==
[2019-01-01 21:58] VITALS: BP 138/92; PULSE 117; RESP 31; TEMP 35.6; O2SAT 80; BMI 28.8
[2019-01-01 22:05] VITALS: BP 138/92; PULSE 126; RESP 26; O2SAT 89
--- NOTE | 2019-01-01 22:08 | ED.VISSUMM ---
- ER Visit Summary Date of Service: 01/01/19 Chief Complaint: Overdose History of Present Illness: The patient is a 28 M who was found unresponsive cyanotic with agonal respirations. He was given 3 doses of naloxone, he has now significantly improved. He does not remember using any drugs and he denies heroin or fentanyl or any other opiates. He denies any other complaints. Physical Examination: He appears chronically ill, he does not appear toxic. He appears much older than his stated age. Moist mucous membranes, no obvious facial deformity No C-spine tenderness supple neck. Regular rate and rhythm without any obvious murmurs Clear lungs bilaterally speaking in full sentences without any obvious respiratory distress Abdomen soft and nontender no guarding or rebound Moves all extremities without any difficulty or pain. Skin does not show any obvious rashes or lesions, no trauma. Multiple tattoos He has a depressed tearful affect Alert oriented ?3 with no gross focal deficit Emergency Department Course and Treatment: Patient was monitored in the emergency department, initially was slightly hypoxic and x-ray was done, it was unremarkable, he is now improved he will be observed until full resolution and then he will be discharged Disposition: Discharge stable condition Impression: Opiate overdose This note was generated with [employer] dictation software. It may contain incorrect words, spelling, and punctuation that were not noted in review of the chart prior to signing ED Disposition - Plan for ED Patient: Disposition: Home or Assisted Living Instructions: ED Overdose Accidental, ED Overdose Opiate Referrals: Evangelista Carlton MD [Primary Care Provider] - 3-5 Days
--- NOTE | 2019-01-01 22:14 | ED.DCSUM_ITS ---
- ER Visit Summary Date of Service: 01/01/19 Chief Complaint: Overdose History of Present Illness: The patient is a 28 M who was found unresponsive cyanotic with agonal respirations. He was given 3 doses of naloxone, he has now significantly improved. He does not remember using any drugs and he denies her oin or fentanyl or any other opiates. He denies any other complaints. Physical Examination: He appears chronically ill, he does not appear toxic. He appears much older than his stated age. Moist mucous membranes, no obvious facial deformity No C-spine tenderness supple neck. Regular rate and rhythm without any obvious murmurs Clear lungs bilaterally speaking in full sentences without any obvious respiratory distress Abdomen soft and nontender no guarding or rebound Moves all extremities without any difficulty or pain. Skin does not show any obvious rashes or lesions, no trauma. Multiple tattoos He has a depressed tearful affect Alert oriented ?3 with no gross focal deficit Emergency Department Course and Treatment: Patient was monitored in the emergency department, initially was slightly hypoxic and x-ray was done, it was unremarkable, he is now improved he will be observed until full resolution and then he will be discharged Disposition: Discharge stable condition Impression: Opiate overdose This note was generated with [employer] dictation software. It may contain incorrect words, spelling, and punctuation that were not noted in review of the chart prior to signing ED Disposition - Plan for ED Patient: Disposition: Home or Assisted Living Instructions: ED Overdose Accidental, ED Overdose Opiate Referrals: Evangelista Carlton MD [Primary Care Provider] - 3-5 Days
--- NOTE | 2019-01-01 22:20 | RAD_ITS ---
STUDY: X-RAY CHEST REASON FOR EXAM: Male, 28 years old. Shortness of breath TECHNIQUE: Single frontal view COMPARISON: November 10, 2016 FINDINGS: The lungs are clear and expanded. There is no demonstrated pleural abnormality. Normal size heart. Normal mediastinum and ailyn. Normal visualized pulmonary arteries. Normal visualized aortic arch and descending thoracic aorta. Normal visualized thoracic spine. Normal visualized ribs, clavicles, and shoulders. There is no demonstrated abnormality of the visualized soft tissue structures of the upper abdomen. RAD/Chest 1 View (Portable) IMPRESSION: Normal x-ray examination of the chest. Electronically Signed: Howie De La Rosa DO at 23:07 EST Tel [phone], Service support ,
--- NOTE | 2019-01-01 22:41 | ED.RN ---
FRIENDS OF PT THAT ARE AT HIS BEDSIDE INFORMED THIS RN THAT HE TOOK STRAIGHT FENTANYL. NOTIFIED. VERBALIZED UNDERSTANDING. NO NEW ORDERS GIVEN
--- NOTE | 2019-01-01 22:59 | ED.RN ---
OK PER MD TO GIVE PT ORAL FLUIDS. PT GIVEN 2 SMALL CANS OF SPRITE. WHILE IN ROOM PT STATES WHERE'S THE REMOTE. PT INFORMED THERE WAS NO REMOTE IN THE ROOM AFTER CHECKING THE ROOM. PT MUMBLES INAUDIBLY THEN STATES I WANT [facility]. PT INFORMED THERE ARE NO AVAILABLE REMOTES AT THIS TIME.
--- NOTE | 2019-01-01 23:51 | ED.RN ---
THIS RN WENT TO CHECK PT'S OXYGEN LEVELS. O2 TURNED OFF AND PATIENT MAINTAINED SATURATION LEVEL AT 95% ON ROOM AIR. PT BEGAN TO HARASS THE FRIEND THAT WAS IN THE ROOM WITH HIM AND SHE STATED I'M NOT DOING THIS AND RAN OUT OF THE ROOM. PER PT'S REQUEST THIS RN WENT TO LOOK FOR THE FEMALE FRIEND AND SHE WAS NOT IN THE ER WAITING ROOM OR IMMEDIATELY OUTSIDE THE ENTRANCE DOORS. PT NOTIFIED OF THIS AND BECAME ANGRY, RIPPING HIS MONITOR AND ALL OF HIS LEADS OFF. HE WAS GIVEN A PORTABLE PHONE TO ATTEMPT TO CALL HIS FRIEND. PT BEGAN HARASSING THIS RN STATING NO ONE DID ANYTHING FOR ME AND DEMANDING TO KNOW WERE HIS OTHER SHOE WAS. I NOTIFIED HIM HE ONLY CAME WITH ONE SHOE AND NO OTHER BELONGINGS, WENT OVER HIS DIAGNOSES TO WHICH HE JUST ANGRILY SHOOK HIS HEAD. PT WAS ASKED TO WAIT IN THE WAITING ROOM DUE TO BEING HOSTILE WITH STAFF.
[2019-01-01 23:58] VITALS: O2SAT 95
== END 2019-01-01 23:58 | disposition home or self-care (01) ==
PROVIDERS: Emergency Provider Emergency Medicine; Family Provider Family Medicine; PCP Family Medicine
DX: T40.601A Poisoning by unspecified narcotics, accidental (unintentional), initial encounter (principal); R40.20 Unspecified coma; R23.0 Cyanosis; R09.02 Hypoxemia
CPT/HCPCS: 71045; 99283; J7030

== ENCOUNTER 2019-01-06 01:39 | Emergency (ER) | payer MEDICAID, SELFPAY ==
[2019-01-06 01:40] VITALS: BP 145/97; PULSE 110; RESP 18; TEMP 36.3; O2SAT 96; BMI 31.8
--- NOTE | 2019-01-06 02:03 | RAD_ITS ---
STUDY: X-RAY CHEST REASON FOR EXAM: Male, 28 years old. Cough TECHNIQUE: PA and lateral views of the chest. COMPARISON: 01/01/2019 FINDINGS: Subtle nodular prominence of the interstitial lung markings in the right midlung. 1.3 cm nodular density in the right paratracheal. No pleural effusion or pneumothorax. Normal size heart. Normal mediastinum and ailyn. Normal visualized pulmonary arteries. Normal visualized aortic arch and descending thoracic aorta. Normal visualized thoracic spine. Normal visualized ribs, clavicles, and shoulders. There is no demonstrated abnormality of the visualized soft tissue structures of the upper abdomen. RAD/Chest PA and Lateral IMPRESSION: 1. Reticulonodular infiltrate in the right midlung, likely representing pneumonia. 2. 1.3 cm nodule in the paratracheal region of the right upper lung Electronically Signed: Vikas Falk MD at 2:29 EST Tel , Service support ,
--- NOTE | 2019-01-06 02:42 | ED.DCSUM_ITS ---
- ER Visit Summary Date of Service: 01/06/19 Chief Complaint: Cough chest pain and shortness of breath History of Present Illness: The patient is a 28 M who presents with the above complaints. He has been ill for about 3 days. Complains of congestion rhinorrhea productive cough and shortness of breath. He complains of chest pain with coughing. He states that he is coughed up some brown sputum and some blood streaked sputum. No fevers vomiting or diarrhea. Physical Examination: Heart rate 110 vitals otherwise unremarkable Moist mucous membranes Heart regular rhythm slightly tachycardic Lungs are clear without rales rhonchi or wheezes The abdomen is soft Test Results: Two-view chest x-ray shows a right mid lung infiltrate. Emergency Department Course and Treatment: Chest x-ray as above consistent with pneumonia. Patient otherwise clinically appears well. I do believe he is a good candidate for outpatient treatment I do not see an indication for hospitalization at this time. He was prescribed azithromycin. He was instructed on signs and symptoms to monitor for and does understand to return for new or worsening symptoms. Patient discharged. Treatment Plan: [] Disposition: Discharge Impression: Community acquired pneumonia This note was generated with [employer] dictation software. It may contain incorrect words, spelling, and punctuation that were not noted in review of the chart prior to signing ED Disposition - Plan for ED Patient: Referrals: Evangelista Carlton MD [Primary Care Provider] -
--- NOTE | 2019-01-06 02:42 | ED.DEP ---
ED Disposition - Plan for ED Patient: Instructions: ED Pneumonia Adult Prescriptions: Azithromycin [Zithromax Z-Mario] 250 mg PO UD #1 box Referrals: Evangelista Carlton MD [Primary Care Provider] -
[2019-01-06 02:45] VITALS: BP 160/91; PULSE 114; RESP 18; O2SAT 97
== END 2019-01-06 03:00 | disposition home or self-care (01) ==
PROVIDERS: Emergency Provider Emergency Medicine; Family Provider Family Medicine; PCP Family Medicine
DX: J18.9 Pneumonia, unspecified organism (principal)
CPT/HCPCS: 71046; 99282

== ENCOUNTER 2021-12-20 03:07 | Emergency (ER) | payer MEDICAID, SELFPAY ==
[2021-12-20 03:08] VITALS: BP 167/101; PULSE 100; RESP 18; TEMP 36.7; O2SAT 96; BMI 37.3
--- NOTE | 2021-12-20 03:29 | CT_ITS ---
HISTORY: trauma TECHNIQUE: Multiple axial images were obtained of the brain without intravenous contrast. Coronal and sagittal reformats obtained. Bone algorithm axial images obtained. A radiation dose optimization technique was used for this scan. COMPARISON: November 06, 2016 FINDINGS: # of images incl. paperwork: 259 HEMORRHAGE: No evidence of acute intracranial hemorrhage. CEREBRAL PARENCHYMA: --Volume: Unremarkable for age. --White matter: Unremarkable. --Mass: No evidence of intracranial mass. --Stroke: Song-white matter differentiation is preserved. VENTRICULAR SYSTEM: No hydrocephalus. MASS EFFECT: No midline shift or focal sulci effacement. Basal cisterns are preserved. SCALP: No large scalp hematoma. CALVARIUM/SKULL BASE: No fracture. PARANASAL SINUSES: Right maxillary mucus retention cyst. Minimal ethmoid sinus mucoperiosteal thickening. MASTOID AIR CELLS: Clear. ORBITS: Imaged portions are unremarkable. ASPECTS acute stroke score: 10 CT/Brain/Head without Contrast IMPRESSION: No CT evidence of acute intracranial hemorrhage or injury. Individualized dose optimization techniques were used for this CT. at 0421 Reported and signed by: Jose Kirkland MD Electronically Signed: Jose Kirkland MD at 4:20 EST Tel , Service support ,
--- NOTE | 2021-12-20 03:29 | RAD_ITS ---
HISTORY: injury EXAMINATION/TECHNIQUE: XR Spine Thoracic 2 Views: Frontal and lateral thoracic radiograph COMPARISON: Lumbar spine radiograph on same day FINDINGS: VERTEBRAE: Preserved vertebral body height. No fracture. No spondylolisthesis. Preservation of the normal thoracic kyphosis. Mild endplate degenerative change in the midthoracic spine with slight disc height loss. INCLUDED CHEST/ABDOMEN: No acute abnormalities. RAD/Thoracic Spine 2 Views IMPRESSION: No evidence of thoracic spinal fracture or spondylolisthesis. Mild mid thoracic spondylosis. at 0408 Reported and signed by: Jose Kirkland MD Electronically Signed: Jose Kirkland MD at 4:07 EST Tel , Service support ,
--- NOTE | 2021-12-20 03:29 | RAD_ITS ---
HISTORY: injury EXAMINATION/TECHNIQUE: XR Spine Lumbar 2 or 3 Views: 3 view lumbar spine COMPARISON: Thoracic spine radiograph on same day FINDINGS: VERTEBRAE: 5 [id number] lumbar type vertebra. No fracture or acute compression deformity. Preservation of the normal lumbar lordosis. Mild lumbar levocurvature. No spondylolisthesis. DISCS: Disc spaces are maintained. INCLUDED ABDOMEN: Included bowel gas pattern is non-obstructive. RAD/Lumbar Spine 2 or 3 Views IMPRESSION: No evidence of lumbar spinal fracture or spondylolisthesis. Mild lumbar levocurvature. No listhesis. at 0410 Reported and signed by: Jose Kirkland MD Electronically Signed: Jose Kirkland MD at 4:08 EST Tel , Service support ,
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
[2021-12-20] MEDS: Ibuprofen 600 MG Tablet PO (03:36)
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
[2021-12-20 05:49] VITALS: RESP 16
--- NOTE | 2021-12-20 09:00 | ED.RN ---
Pts mother or family will be here to get him in a half hour to an hour
[2021-12-20 09:44] VITALS: BP 129/84; PULSE 76; RESP 15; O2SAT 98
== END 2021-12-20 09:45 | disposition home or self-care (01) ==
PROVIDERS: Emergency Provider Emergency Medicine; PCP Family Medicine; Visit Provider Emergency Medicine
DX: S09.90XA Unspecified injury of head, initial encounter (principal); S20.229A Contusion of unspecified back wall of thorax, initial encounter; S01.511A Laceration without foreign body of lip, initial encounter; F17.210 Nicotine dependence, cigarettes, uncomplicated; Y04.2XXA Assault by strike against or bumped into by another person, initial encounter; Z79.899 Other long term (current) drug therapy
CPT/HCPCS: 70450; 72070; 72100; 99284